=== PATIENT | female | born 1935 | race Caucasian/White ===

== ENCOUNTER 2017-03-09 13:35 | Outpatient (CLI) | payer MEDICARE, BC | END 2017-03-09 23:59 | disposition home or self-care (01) | LOC: LAB.WCP 13:35 | PROVIDERS: ATTEND Family Medicine | DX: N39.0 Urinary tract infection, site not specified (principal) | CPT/HCPCS: 87077; 87086 ==

== ENCOUNTER 2017-08-02 08:44 | Emergency (ER) | payer MEDICARE, BC ==
--- NOTE | 2017-08-02 09:26 | ED Physician Documentation ---
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 She has history of episodic atrial fib, and it seemed that to her. She has also had cough and csome wheezing for 3-4 days, with productive green sputum cough.) Inciting event(s): URI Worsened by: Exertion, Coughing. No: Laying flat Associated symptoms: Cough, Wheezing, Palpitations (just the past 1-2 hours). No: Chest pain / discomfort, Bilateral edema Similar symptoms before: Diagnosis (COPD in the past and episodic atrial fib.) Recently seen: Not recently seen Review of Systems Constitutional: reports: Myalgias. denies: Fever Nose: reports: Congestion Throat: denies: Sore throat Cardiac: denies: Chest pain / pressure, Pedal edema, Calf pain Respiratory: reports: Dyspnea, Cough, Wheezing GI: denies: Abdominal Pain, Nausea, Vomiting, Constipation, Bloody / black stool : denies: Dysuria, Frequency Musculoskeletal: denies: Neck pain, Back pain, Extremity swelling Neurologic: reports: Generalized weakness. 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 HEENT: Cataracts - Present Medications Home Medications: Ambulatory Orders Medication Instructions Recorded Confirmed ALPRAZolam [Xanax] 0.05 mg PO DAILY 05/21/16 05/21/16 Albuterol Sulfate [Proair Hfa] 2 puffs PO PRN 05/21/16 Aspirin Chewable [[place] Keith 81 mg PO DAILY 05/21/16 05/21/16 Aspirin] Cetirizine [ZyrTEC] 10 mg PO PRN 05/21/16 Estrogens, Conjugated [Premarin] 0.5 mg PO DAILY 05/21/16 05/21/16 Ibuprofen [Advil] 100 mg PO DAILY 05/21/16 05/21/16 Lovastatin 20 mg PO DAILY 05/21/16 05/21/16 Magnesium Oxide [Mag Ox] 400 mg PO DAILY 05/21/16 05/21/16 Methylsulfonylmethane [MSM] 1,000 mg PO DAILY 05/21/16 05/21/16 Mometasone/Formoterol [Dulera 200 200 mcg PO DAILY 05/21/16 05/21/16 Mcg/5 Mcg Inhaler] Ondansetron Odt [Zofran] 4 mg TL Q6H PRN #10 tablet 05/21/16 Potassium Chloride [Klor-Con M20] 2 pkg PO DAILY 05/21/16 Roflumilast [Daliresp] 500 mcg PO DAILY 05/21/16 05/21/16 Triamterene/Hydrochlorothiazid 37.5 mg PO DAILY 05/21/16 05/21/16 [Triamterene-Hctz 37.5-25 mg Tb] raNITIdine [Zantac] 150 mg PO DAILY 05/21/16 05/21/16 Albuterol Sulf [Ventolin Hfa 1 - 2 puffs INH Q4HR PRN #1 inhaler 08/02/17 Inhaler] Dexamethasone [Decadron] 4 mg PO DAILY #5 tablet 08/02/17 Doxycycline Monohydrate 100 mg PO BID #14 tablet 08/02/17 - Allergies Allergies/Adverse Reactions: Allergies Allergy/AdvReac Type Severity Reaction Status Date / Time erythromycin base Allergy Intermediate Edema Verified 05/21/16 01:07 [Erythromycin Base] levofloxacin [From Levaquin] Allergy Intermediate Bleeding Verified 05/21/16 01: 07 Macrolide Antibiotics Allergy Intermediate Edema Verified 05/21/16 01:07 phisahex skin soap Allergy Intermediate Edema Uncoded 05/21/16 01:07 - Social History Does the pt smoke?: No Smoking Status: Never smoker PD ED PE NORMAL - Vitals Vital signs reviewed: Yes - General General: Alert and oriented X 3, No acute distress, Well developed/nourished - HEENT HEENT: Ears normal, Pharynx benign - Neck Neck: Supple, no meningeal sign, No adenopathy, No JVD - Cardiac Cardiac: RRR, No murmur - Respiratory Respiratory: No: Clear bilaterally (some tight breath sounds and scattered wheezes mid expiratory and out) - Abdomen Abdomen: Soft, Non tender - Back Back: No CVA TTP - Derm Derm: Normal color, Warm and dry, No rash - Extremities Extremities: No tenderness to palpate, Normal ROM s pain, No edema, No calf tenderness / cord - Neuro Neuro: Alert and oriented X 3, No motor deficit, Normal speech Results - Vitals Vitals: Vital Signs - 24 hr 08/02/17 08/02/17 08/02/17 08:46 09:05 09:59 Temperature 36.9 C Heart Rate 109 H 99 101 H Respiratory 20 21 Rate Blood Pressure 124/62 O2 Saturation 89 L 93 08/02/17 11:36 Temperature Heart Rate 98 Respiratory 21 Rate Blood Pressure 101/76 O2 Saturation 93 Oxygen O2 Source Room air - EKG (time done) 09:07 Rate: Rate (enter#) (90) Rhythm: NSR [place]: Normal Intervals: Normal [place] Ischemia: Normal ST segments. No: ST elevation c/w ischemia, ST depression - Labs Labs: Laboratory Tests 08/02/17 08/02/17 08/02/17 09:58 09:58 09:58 WBC 21.6 H RBC 4.39 Hgb 12.5 Hct 38.1 MCV 86.8 MCH 28.4 MCHC 32.7 RDW 13.3 Plt Count 173 MPV 8.6 Neut # 19.8 H Lymph # 1.0 L [place] # 0.7 Eos # 0.1 Baso # 0.1 Absolute Nucleated RBC 0.00 Nucleated RBC % 0.0 Manual Slide Review Indicated RBC Morph Micro Appear 2+ ANISOCYTOSIS Sodium 134 L Potassium 3.6 Chloride 101 Carbon Dioxide 23 Anion Gap 10.0 BUN 26 H Creatinine 1.1 H Estimated GFR (MDRD) 48 L Glucose 120 H Calcium 9.4 Magnesium 1.8 Total Bilirubin 1.1 H AST 22 ALT 16 Alkaline Phosphatase 62 B-Natriuretic Peptide 85 Total Protein 7.1 Albumin 3.6 Globulin 3.5 Albumin/Globulin Ratio 1.0 Lipase 18 L - Rads (name of study) chest Radiology: Prelim report reviewed, EMP read contemporaneously (no infiltrates, no CHF) PD MEDICAL DECISION MAKING - ED course Complexity details: reviewed results, considered differential (sounds like she had rapid atrial fib and has had cold/cough, so was feeling doubly bad. Improved with return to NSR prior to arrival. Feeling better with neb treatment and will treat for bronchitis, given asthma history and age. ), d/w patient Departure - Departure Disposition: 01 Home, Self Care Clinical Impression: Episodic atrial fibrillation Bronchitis, acute Qualifiers: Bronchitis organism: unspecified organism Qualified Code(s): J20.9 - Acute bronchitis, unspecified Dyspnea Qualifiers: Dyspnea type: dyspnea on exertion Qualified Code(s): R06.09 - Other forms of dyspnea Condition: Stable Record reviewed to determine appropriate education?: Yes Instructions: ED Bronchitis Asthmatic Follow-Up: Leisa Haider MD [Primary Care Provider] - Prescriptions: Albuterol Sulf [Ventolin Hfa Inhaler] 1 - 2 puffs INH Q4HR PRN #1 inhaler PRN Reason: Shortness Of Air/Wheezing Dexamethasone [Decadron] 4 mg PO DAILY #5 tablet Doxycycline Monohydrate 100 mg PO BID #14 tablet Comments: Drink lots of fluids. Continue regular medications. For the bronchitis, use albuterol inhaler 2 puffs 4 times a day for the next 7-10 days. Decadron daily for inflammation of the bronchioles. Doxycycline twice daily for a week for the infection. Recheck if not improving over the next couple of days and return sooner if worse. Discharge Date/Time: 08/02/17 12:27
[2017-08-02] MEDS ORDERED: ALBUTEROL NEB 2.5 MG/3 ML INH STA (09:47)
[2017-08-02] MEDS ORDERED: ALBUTEROL NEB 2.5 MG/3 ML INH ONE (10:02)
[2017-08-02 10:06] LABS: BASOPHILS # (AUTO) 0.1 10^3/uL (0.0-0.1); BASOPHILS % (AUTO) 0.3 %; EOSINOPHILS # (AUTO) 0.1 10^3/uL (0.0-0.7); EOSINOPHILS % (AUTO) 0.3 %; HCT - HEMATOCRIT 38.1 % (37.0-47.0); HGB - HEMOGLOBIN 12.5 g/dL (12.0-16.0); LYMPHOCYTES % (AUTO) 4.4 %; MEAN CORPUSCULAR HEMOGLOBIN 28.4 pg (27.0-31.0); MEAN CORPUSCULAR HGB CONC 32.7 g/dL (32.0-36.0); MEAN CORPUSCULAR VOLUME 86.8 fL (81.0-99.0); MEAN PLATELET VOLUME 8.6 fL (7.9-10.8); MONOCYTES # (AUTO) 0.7 10^3/uL (0.0-1.0); MONOCYTES % (AUTO) 3.2 %; NEUTROPHILS # (AUTO) 19.8 10^3/uL (1.5-6.6); NEUTROPHILS % (AUTO) 91.8 %; RED BLOOD COUNT 4.39 10^6/uL (4.20-5.40); RED CELL DISTRIBUTION WIDTH 13.3 % (12.0-15.0); UNCORRECTED WHITE BLOOD COUNT 21.6 x10^3/uL; WHITE BLOOD COUNT 21.6 x10^3/uL (4.8-10.8)
[2017-08-02 10:17] LABS: BILIRUBIN,TOTAL 1.1 mg/dL (0.2-1.0); CALCIUM 9.4 mg/dL (8.5-10.3); CREATININE 1.1 mg/dL (0.4-1.0); MAGNESIUM 1.8 mg/dL (1.7-2.8); POTASSIUM 3.6 mmol/L (3.5-5.0); TOTAL PROTEIN 7.1 g/dL (6.7-8.2)
--- NOTE | 2017-08-02 11:17 | XRAY Preliminary Report ---
Exam: XR CHEST 2 VIEW PA/LAT IMPRESSION: Negative 2-view chest radiography for acute findings. Chronic changes are present. [facility] SITE ID: [id number]
[2017-08-02] MEDS ORDERED: DOXYCYCLINE 100 MG TABLET PO STA (11:19)
[2017-08-02] MEDS ORDERED: DEXAMETHASONE 10 MG/ML VIAL PO STA (11:19)
--- NOTE | 2017-08-02 11:20 | XRAY Report ---
EXAM: CHEST RADIOGRAPHY EXAM DATE: 08/02/2017 10:53 AM. CLINICAL HISTORY: Dyspnea and cough. COMPARISON: 03/20/2015 TECHNIQUE: 2 views. FINDINGS: Lungs/Pleura: Interstitial prominence as before. No focal opacities evident. No pleural effusion. No pneumothorax. Normal volumes. Mediastinum: Heart and mediastinal contours are unremarkable. Other: Degenerative change with S-shaped thoracolumbar scoliosis IMPRESSION: Negative 2-view chest radiography for acute findings. Chronic changes are present. [facility] Referring Provider Line: [phone] SITE ID: [id number]
[2017-08-02] MEDS ORDERED: DOXYCYCLINE 100 MG TABLET PO ONE (11:28)
[2017-08-02] MEDS ORDERED: DEXAMETHASONE 10 MG/ML VIAL ONE (11:28)
[2017-08-02 11:37] VITALS: BP 101/76
== END 2017-08-02 12:27 | disposition home or self-care (01) ==
LOC: ED 08:44
DX: I48.91 Unspecified atrial fibrillation (principal); J44.9 Chronic obstructive pulmonary disease, unspecified; J20.8 Acute bronchitis due to other specified organisms; R06.09 Other forms of dyspnea; I10 Essential (primary) hypertension; K21.9 Gastro-esophageal reflux disease without esophagitis; Z86.010 Personal history of colon polyps; Z79.82 Long term (current) use of aspirin
CPT/HCPCS: 36415; 71020; 80053; 83690; 83735; 83880; 85025; 93005; 94640; 99283; 99284; A9270; J7613

== ENCOUNTER 2017-09-04 21:29 | Observation (INO) | payer MEDICARE, BC ==
--- NOTE | 2017-09-04 22:01 | ED Physician Documentation ---
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.) Timing - details: Abrupt onset Severity of deficit: Mild Weakness: No: Face, Arm, Hand, Leg, Foot, Right, Left, Other Numbness: Face, Arm, Hand, Left Associated symptoms: No: Headache, Nausea / vomiting, Chest pain Contributing factors: positive: Anticoagulated Baseline status: positive: A&OX3, ambulatory, indep Similar symptoms before: Has not had sx before Recently seen: Not recently seen Review of Systems Constitutional: denies: Fever, Chills Eyes: denies: Loss of vision, Decreased vision, Photophobia Ears: denies: Loss of hearing, Ear pain Nose: denies: Rhinorrhea / runny nose Throat: denies: Sore throat Cardiac: denies: Chest pain / pressure, Palpitations Respiratory: denies: Dyspnea, Cough GI: denies: Abdominal Pain, Nausea, Vomiting, Diarrhea : denies: Dysuria, Frequency Skin: denies: Rash, Lesions Musculoskeletal: denies: Neck pain, Back pain Neurologic: reports: Numbness, Other (no ataxia). denies: Focal weakness, Difficulty speaking, Near syncope, Confused, Altered mental status, Headache, Head injury PD PAST MEDICAL HISTORY - Past Medical History Past Medical History: Yes Cardiovascular: Hypertension, Atrial fibrillation Respiratory: Asthma, COPD, Shortness of breath Neuro: None Endocrine/Autoimmune: None GI: GERD, Colon polyps, Other CITY RECORDER: None : None HEENT: Other Psych: None Musculoskeletal: None Derm: Psoriasis - Past Surgical History Past Surgical History: Yes General: Appendectomy, Colonoscopy /CITY RECORDER: Hysterectomy HEENT: Cataracts - Present Medications Home Medications: Ambulatory Orders Medication Instructions Recorded Confirmed ALPRAZolam [Xanax] 0.25 mg PO DAILY 05/21/16 09/05/17 Albuterol Sulfate [Proair Hfa] 2 puffs PO PRN 05/21/16 Aspirin Chewable [St Keith 81 mg PO DAILY 05/21/16 05/21/16 Aspirin] Cetirizine [ZyrTEC] 10 mg PO PRN 05/21/16 Estrogens, Conjugated [Premarin] 0.5 mg PO DAILY 05/21/16 05/21/16 Lovastatin 20 mg PO DAILY 05/21/16 09/05/17 Magnesium Oxide [Mag Ox] 400 mg PO DAILY 05/21/16 09/05/17 Methylsulfonylmethane [MSM] 1,000 mg PO DAILY 05/21/16 05/21/16 Mometasone/Formoterol [Dulera 200 200 mcg PO DAILY 05/21/16 09/05/17 Mcg/5 Mcg Inhaler] Potassium Chloride [Klor-Con M20] 2 pkg PO DAILY 05/21/16 Roflumilast [Daliresp] 500 mcg PO DAILY 05/21/16 05/21/16 Triamterene/Hydrochlorothiazid 37.5 mg PO DAILY 05/21/16 05/21/16 [Triamterene-Hctz 37.5-25 mg Tb] raNITIdine [Zantac] 150 mg PO DAILY 05/21/16 09/05/17 Albuterol Sulf [Ventolin Hfa 1 - 2 puffs INH Q4HR PRN #1 inhaler 08/02/17 Inhaler] Metoprolol Tartrate [Lopressor] 25 mg PO BID 09/05/17 09/05/17 Nifedipine [Nifedipine ER] 15 mg PO DAILY 09/05/17 09/05/17 Warfarin [Coumadin] 5 mg PO DAILY 09/05/17 09/05/17 - Allergies Allergies/Adverse Reactions: Allergies Allergy/AdvReac Type Severity Reaction Status Date / Time erythromycin base Allergy Intermediate Edema Verified 09/04/17 21:40 [Erythromycin Base] levofloxacin [From Levaquin] Allergy Intermediate Bleeding Verified 09/04/17 21: 40 Macrolide Antibiotics Allergy Intermediate Edema Verified 09/04/17 21:40 phisahex skin soap Allergy Intermediate Edema Uncoded 09/04/17 21:40 - Social History Does the pt smoke?: No Smoking Status: Never smoker Does the pt drink ETOH?: No Does the pt have substance abuse?: No - Immunizations Immunizations are current?: Yes PD ED PE NORMAL - Vitals Vital signs reviewed: Yes - General General: Alert and oriented X 3, No acute distress, Well developed/nourished - HEENT HEENT: Atraumatic, PERRL, EOMI, Ears normal, Pharynx benign - Neck Neck: Supple, no meningeal sign, No adenopathy, No JVD, No bruit - Cardiac Cardiac: RRR, No murmur - Respiratory Respiratory: Clear bilaterally - Abdomen Abdomen: Soft, Non tender - Female Female : Deferred - Rectal Rectal: Deferred - Back Back: No CVA TTP, No spinal TTP - Derm Derm: Normal color, Warm and dry, No rash - Extremities Extremities: No deformity, No tenderness to palpate, Normal ROM s pain, No calf tenderness / cord, Other (bilateral edema mild in both legs without tenderness. 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 But she can distinguish sharp/dull and position. Muscle strength is symmetric. ) Eye Opening: Spontaneous Motor: Obeys Commands Verbal: Oriented GCS Score: 15 - Psych Psych: Normal mood, Normal affect NIHSS - Level of Consciousness Level of consciousness: (0) Alert, Keenly responsive LOC Questions: (0) Answers both Q's correct LOC Commands: (0) Performs both correctly - Gaze Best Gaze: (0) Normal - Visual Visual: (0) No loss - Facial Palsy Facial Palsy: (0) Normal, symmetrical movement - Motor Arms (both separate) Motor Arm (right): (0) No drift Motor Arm (left): (0) No drift - Motor Legs (both separate) Motor Leg (right): (0) No drift Motor Leg (left): (0) No drift - Limb Ataxia Limb Ataxia: (0) Absent - Sensory Sensory: (1) [id number] loss - Best Language Best Language: (0) No aphasia - Dysarthria Dysarthria: (0) Normal - Extinction and Inattention (formally neg Extinction and inattention: (0) No abnormality - Total Score/Results Total Score/Result: 1 Results - Vitals Vitals: Vital Signs - 24 hr 09/04/17 09/04/17 21:30 22:31 Temperature 36.2 C L Heart Rate 107 H 103 H Respiratory 20 18 Rate Blood Pressure 189/94 H 192/86 H O2 Saturation 95 100 Oxygen O2 Source Room air - Labs Labs: Laboratory Tests 09/04/17 09/04/17 09/04/17 21:45 21:45 21:45 WBC 6.5 RBC 4.58 Hgb 13.3 Hct 39.8 MCV 86.8 MCH 29.1 MCHC 33.6 RDW 13.0 Plt Count 253 MPV 8.7 Neut # 3.5 Lymph # 2.1 [place] # 0.7 Eos # 0.2 Baso # 0.0 Absolute Nucleated RBC 0.00 Nucleated RBC % 0.0 PT INR APTT Sodium 138 Potassium 3.6 Chloride 102 Carbon Dioxide 25 Anion Gap 11.0 BUN 25 H Creatinine 0.9 Estimated GFR (MDRD) 60 L Glucose 124 H Calcium 9.7 Magnesium 1.8 Total Bilirubin 0.4 AST 27 ALT 21 Alkaline Phosphatase 67 Troponin I < 0.04 Total Protein 8.0 Albumin 4.2 Globulin 3.8 Albumin/Globulin Ratio 1.1 Lipase 40 09/04/17 09/04/17 23:00 23:00 WBC RBC Hgb Hct MCV MCH MCHC RDW Plt Count MPV Neut # Lymph # [place] # Eos # Baso # Absolute Nucleated RBC Nucleated RBC % PT 50.0 H INR 4.7 H* APTT 47.3 H Sodium Potassium Chloride Carbon Dioxide Anion Gap BUN Creatinine Estimated GFR (MDRD) Glucose Calcium Magnesium Total Bilirubin AST ALT Alkaline Phosphatase Troponin I Total Protein Albumin Globulin Albumin/Globulin Ratio Lipase - Rads (name of study) head CT Radiology: Prelim report reviewed (no acute findings.), EMP read contemporaneously PD MEDICAL DECISION MAKING - ED course Complexity details: reviewed results, considered differential (concerning for CVA with left numbness. However without weakness, would consider small lacunar type such as in caudate nucleus or such. Her symptoms are minor and timing was about 2 1/2 hours prior to arrival and over [address] of [address] result. I talked with her and spouse about TPA and the benefit/harm potentials and patient agrees with me that it would be too risky for the degree of benefit. ) , d/w patient, d/w desktop support consultant (Dr. Camacho, hospitalist) Departure - Departure Disposition: ED Place in Observation Clinical Impression: Left sided numbness Cerebrovascular accident (CVA) Qualifiers: CVA mechanism: unspecified Qualified Code(s): I63.9 - Cerebral infarction, unspecified Condition: Stable Record reviewed to determine appropriate education?: Yes Discharge Date/Time: 09/05/17 00:13
[2017-09-04] MEDS ORDERED: ASPIRIN CHEW 81 MG TABLET PO STA (22:40)
[2017-09-04 22:46] LABS: BASOPHILS % (AUTO) 0.6 %; EOSINOPHILS # (AUTO) 0.2 10^3/uL (0.0-0.7); EOSINOPHILS % (AUTO) 2.7 %; HCT - HEMATOCRIT 39.8 % (37.0-47.0); HGB - HEMOGLOBIN 13.3 g/dL (12.0-16.0); LYMPHOCYTES # (AUTO) 2.1 10^3/uL (1.5-3.5); LYMPHOCYTES % (AUTO) 32.4 %; MEAN CORPUSCULAR HEMOGLOBIN 29.1 pg (27.0-31.0); MEAN CORPUSCULAR HGB CONC 33.6 g/dL (32.0-36.0); MEAN CORPUSCULAR VOLUME 86.8 fL (81.0-99.0); MEAN PLATELET VOLUME 8.7 fL (7.9-10.8); MONOCYTES # (AUTO) 0.7 10^3/uL (0.0-1.0); MONOCYTES % (AUTO) 10.1 %; NEUTROPHILS # (AUTO) 3.5 10^3/uL (1.5-6.6); NEUTROPHILS % (AUTO) 54.2 %; RED BLOOD COUNT 4.58 10^6/uL (4.20-5.40); UNCORRECTED WHITE BLOOD COUNT 6.5 x10^3/uL; WHITE BLOOD COUNT 6.5 x10^3/uL (4.8-10.8)
[2017-09-04] MEDS ORDERED: ASPIRIN CHEW 81 MG TABLET ONE (22:49)
--- NOTE | 2017-09-04 22:56 | CT Preliminary Report ---
Exam: CT HEAD W/O IMPRESSION: Generalized age-related cortical atrophic changes without evidence of acute intracranial abnormality. [facility] SITE ID: [id number]
[2017-09-04 22:59] LABS: ALBUMIN/GLOBULIN RATIO 1.1 (1.0-2.2); BILIRUBIN,TOTAL 0.4 mg/dL (0.2-1.0); CALCIUM 9.7 mg/dL (8.5-10.3); CREATININE 0.9 mg/dL (0.4-1.0); MAGNESIUM 1.8 mg/dL (1.7-2.8); POTASSIUM 3.6 mmol/L (3.5-5.0)
--- NOTE | 2017-09-04 22:59 | CT Report ---
EXAM: CT HEAD EXAM DATE: 09/04/2017 10:46 PM. CLINICAL HISTORY: Left arm and face numbness this evening. COMPARISON: Brain MRI 01/16/2007. TECHNIQUE: Multiaxial CT images were obtained from the foramen magnum to the vertex. IV contrast: Non e. Reformats: Coronal. In accordance with CT protocol optimization, one or more of the following dose reduction techniques w ere utilized for this exam: automated exposure control, adjustment of mA and/or KV based on patient s ize, or use of iterative reconstructive technique. FINDINGS: Parenchyma: No intraparenchymal hemorrhage. No evidence of mass, midline shift, or CT findings of acu te infarction. Dawson-white differentiation is distinct. Diffuse chronic microangiopathic white matter changes are evident. Extraaxial Spaces: Normal for age. No subdural or epidural collections identified. Ventricles: The ventricles and cortical sulci are enlarged, consistent with age-related tissue loss. Sinuses and orbits: Imaged paranasal sinuses, orbits, and mastoids show no significant abnormality. Bones: No evidence of fracture or calvarial defect. Other: None. IMPRESSION: Generalized age-related cortical atrophic changes without evidence of acute intracranial abnormality. [facility] Referring Provider Line: [phone] SITE ID: [id number]
[2017-09-04] MEDS ORDERED: ONDANSETRON 4 MG/2 ML VIAL IVP PRN (23:18)
[2017-09-04] MEDS ORDERED: ACETAMINOPHEN 325 MG TABLET PO PRN (23:18)
[2017-09-04] MEDS ORDERED: ZOLPIDEM 5 MG TABLET PO PRN (23:18)
[2017-09-04] MEDS ORDERED: PROCHLORPERAZINE 10 MG/2 ML VIAL IVP PRN (23:18)
[2017-09-04] MEDS ORDERED: SODIUM CHLORIDE FLUSH 0.9% 10 ML SYRINGE IVP PRN (23:18)
[2017-09-04] MEDS ORDERED: IBUPROFEN 400 MG TABLET PO PRN (23:18)
[2017-09-04] MEDS ORDERED: oxyCODONE 5 MG TABLET PO PRN (23:18)
[2017-09-04 23:27] LABS: INR 4.7 (0.8-1.2)
[2017-09-04] MEDS ORDERED: IOPAMIDOL-300 100 ML VIAL ONE (23:50)
--- NOTE | 2017-09-05 00:15 | HISTORY & PHYSICAL EXAMINATION ---
Chief Complaint - Chief Complaint Chief Complaint: Left face and arm numbness History of Present Illness - Admitted From Admitted From:: Emergency Department - History Obtained From Records Reviewed: Yes History obtained from: Patient Exam Limitations: None - History of Present Illness HPI Comment/Other: Patient is an 82-year-old female with a past medical history significant for atrial fibrillation on Coumadin, hypertension, COPD and history of aortic aneurysm who presented to the emergency department with a chief complaint of left arm and facial numbness. The patient states that at around 7 PM today she began to notice that she had tingling in her left arm. The patient states that she was on her iPad reading at that time. She states that she was sitting in a way that she was putting pressure on her left arm. She states that she tried to change position hoping that this was just a pinched nerve and that the symptoms would improve. She states that with changing position it did not improve her symptoms. She states that her symptoms did seem to improve and then worsen and would come and go through the next few hours. She states that when she got up and went to the kitchen she began to notice that she was also having some tingling sensation in the left side of her face. She states that this also was coming and going. She did also noticed that when she got up to walk that she stumbled but then had no further difficulties with her gait. The patient states that when she checked her blood pressure it was very high and her heart rate was elevated and at that point she decided she needed to come into the emergency department. The patient otherwise denies any facial droop, focal weakness, neck stiffness, fevers or chills. Patient denies any headaches, blurred vision, runny nose, sore throat, nasal congestion, cough, shortness of air, orthopnea, PND, chest pain, abdominal pain , nausea, vomiting, diarrhea, constipation, urinary urgency, urinary frequency, dysuria, joint swelling, joint pain, muscle aches, back pain, recent unintentional weight loss or any changes in her appetite. On presentation to the emergency department the patient was afebrile however she was tachycardic and her blood pressure was elevated at 189/94. The patient was not in any respiratory distress. The patient's initial lab work revealed normal electrolytes and negative troponin. The patient had no elevation in her WBC and was not anemic. The patient's INR was elevated at 4.7. The patient's EKG did not show any acute ischemic changes. The patient underwent a CT of her head which showed generalized age-related cortical atrophic changes without evidence of acute intracranial abnormality. On examination the patient did have decreased sensation in her left leg and given her left-sided numbness and changes in sensation it was felt that the patient could possibly be having a small stroke therefore she was placed in observation for further testing and monitoring. 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 Social History Notes: Patient is originally from [place] and moved to [facility] at the age of 8. She has been living in [place] for 55 years. She was to her first for 14 years until he . She has been to her second for 52 years. She lives with her who has dementia and she helps to take care of him. The patient has 5 biological children and 2 stepchildren. 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 She is a former smoker quit smoking in 1988 prior to that she smoked at least a pack a day for over 30 years. Patient occasionally drinks wine and denies any illicit drug - POLST Patient has POLST: No POLST Status: DNR Meds/Allgy - Home Medications Home Medications: Ambulatory Orders Medication Instructions Recorded Confirmed ALPRAZolam [Xanax] 0.25 mg PO DAILY 05/21/16 09/05/17 Albuterol Sulfate [Proair Hfa] 2 puffs PO PRN 05/21/16 Aspirin Chewable [[place] 81 mg PO DAILY 05/21/16 05/21/16 Aspirin] Cetirizine [ZyrTEC] 10 mg PO PRN 05/21/16 Estrogens, Conjugated [Premarin] 0.5 mg PO DAILY 05/21/16 05/21/16 Lovastatin 20 mg PO DAILY 05/21/16 09/05/17 Magnesium Oxide [Mag Ox] 400 mg PO DAILY 05/21/16 09/05/17 Methylsulfonylmethane [MSM] 1,000 mg PO DAILY 05/21/16 05/21/16 Mometasone/Formoterol [Dulera 200 200 mcg PO DAILY 05/21/16 09/05/17 Mcg/5 Mcg Inhaler] Potassium Chloride [Klor-Con M20] 2 pkg PO DAILY 05/21/16 Roflumilast [Daliresp] 500 mcg PO DAILY 05/21/16 05/21/16 Triamterene/Hydrochlorothiazid 37.5 mg PO DAILY 05/21/16 05/21/16 [Triamterene-Hctz 37.5-25 mg Tb] raNITIdine [Zantac] 150 mg PO DAILY 05/21/16 09/05/17 Albuterol Sulf [Ventolin Hfa 1 - 2 puffs INH Q4HR PRN #1 inhaler 08/02/17 Inhaler] Metoprolol Tartrate [Lopressor] 25 mg PO BID 09/05/17 09/05/17 Nifedipine [Nifedipine ER] 15 mg PO DAILY 09/05/17 09/05/17 Warfarin [Coumadin] 5 mg PO DAILY 09/05/17 09/05/17 - Allergies Allergies/Adverse Reactions: Allergies Allergy/AdvReac Type Severity Reaction Status Date / Time erythromycin base Allergy Intermediate Edema Verified 09/04/17 21:40 [Erythromycin Base] levofloxacin [From Levaquin] Allergy Intermediate Bleeding Verified 09/04/17 21: 40 Macrolide Antibiotics Allergy Intermediate Edema Verified 09/04/17 21:40 phisahex skin soap Allergy Intermediate Edema Uncoded 09/04/17 21:40 Review of Systems - Other Findings Other Findings: A comprehensive review of systems was performed the pertinent positives and negatives are stated above in the HPI and the remainder of the review of systems is negative. Exam - Vital Signs Reviewed Vital Signs: Yes Vital Signs: Vital Signs x48h Pulse Resp BP Pulse Ox 09/04/17 23:31 84 18 192/86 H 96 - Physical Exam General Appearance: positive: No acute distress, Alert Eyes Bilateral: positive: Normal inspection, PERRL, EOMI, No lid inflammation, Conjunctivae nml, No scleral icterus ENT: positive: ENT inspection nml, Pharynx nml, No signs of dehydration. negative: Purulent nasal drainage, Pharyngeal erythema, Oral lesions Neck: positive: Nml inspection, Thyroid nml, No JVD, Trachea midline. negative : Thyromegaly, Lymphadenopathy (R), Lymphadenopathy (L), Stiff neck, Carotid bruit, Tracheal deviation Respiratory: positive: Chest non-tender, No respiratory distress, Breath sounds nml. negative: Wheezes, Rales, Rhonchi Cardiovascular: positive: Regular rate & rhythm, No murmur, No gallop Peripheral Pulses: positive: 2+ Abdomen: positive: Non-tender, No organomegaly, Nml bowel sounds, No distention. negative: Guarding, Rebound, Hepatomegaly Back: positive: Nml inspection. negative: CVA tenderness (R), CVA tenderness (L ) Skin: positive: Color nml, No rash. negative: Cyanosis, Pallor Extremities: positive: Non-tender, Full ROM, Nml appearance, No pedal edema. negative: Joint swelling Neurologic/Psychiatric: positive: Oriented x3, CN's nml (2-12), Motor nml, Sensory loss (Left leg decreased sensation, left facial and arm numbness), Other (Normal speech, no ataxia, no nystagmus). negative: Facial droop Conclusion/Plan - Problem List (1) Left sided numbness Conclusion/Plan: The patient presented with left arm and facial numbness. Symptoms were off and on for the patient. On examination the patient was found to have decreased sensations in the left leg. Patient's CT scan of the head was negative for any acute intracranial abnormality. The patient did not have complete resolution of her symptoms in the emergency department. The patient is on aspirin, statin and Coumadin at home. Patient was placed in observation for further testing. Plan: Aspirin Lipitor CTA head and neck MRI brain Echo Lipid profile Tele Neurochecks HbA1C Allow for permissive hypertension (2) Atrial fibrillation Conclusion/Plan: Patient is in sinus rhythm on presentation to the emergency department. The patient admits that she has paroxysmal atrial fibrillation. Patient is on Coumadin and metoprolol for rate control. Patient's INR was elevated. Plan: We will hold patient's Coumadin given her elevated INR We will hold patient's metoprolol for permissive hypertension Monitor on telemetry Qualifiers: Atrial fibrillation type: paroxysmal Qualified Code(s): I48.0 - Paroxysmal atrial fibrillation (3) Hypertension Conclusion/Plan: The patient has history of hypertension and is on nifedipine, triamterene and metoprolol at home. The patient does have an elevated blood pressure on presentation to the emergency department however given that the patient could have an acute stroke we will allow for permissive hypertension. We will hold all the patient's blood pressure medications for now Qualifiers: Hypertension type: essential hypertension Qualified Code(s): I10 - Essential (primary) hypertension (4) Hyperlipidemia Conclusion/Plan: Patient has history of hyperlipidemia and is on a statin at home. While patient is hospitalized she will be continued on her statin and she will undergo a lipid profile while she is hospitalized (5) COPD (chronic obstructive pulmonary disease) Conclusion/Plan: Patient has history of COPD and is on Daliresp and Dulera at home. Patient does not appear to be short of air or hypoxic at this time. Plan: Patient will be placed on budesonide and formoterol while she is hospitalized She will be continued on her home dose of Daliresp We will place her on nebs as needed - Lab Results Lab results reviewed: Yes Fish Bones: 09/04/17 21:45 09/04/17 21:45 Other Lab Results: Laboratory Results WBC 6.5 x10^3/uL (4.8-10.8) 09/04/17 21:45 RBC 4.58 10^6/uL (4.20-5.40) 09/04/17 21:45 Hgb 13.3 g/dL (12.0-16.0) 09/04/17 21:45 Hct 39.8 % (37.0-47.0) 09/04/17 21:45 MCV 86.8 fL (81.0-99.0) 09/04/17 21:45 MCH 29.1 pg (27.0-31.0) 09/04/17 21:45 MCHC 33.6 g/dL (32.0-36.0) 09/04/17 21:45 RDW 13.0 % (12.0-15.0) 09/04/17 21:45 Plt Count 253 10^3/uL (130-450) 09/04/17 21:45 MPV 8.7 fL (7.9-10.8) 09/04/17 21:45 Neut # 3.5 10^3/uL (1.5-6.6) 09/04/17 21:45 Lymph # 2.1 10^3/uL (1.5-3.5) 09/04/17 21:45 [place] # 0.7 10^3/uL (0.0-1.0) 09/04/17 21:45 Eos # 0.2 10^3/uL (0.0-0.7) 09/04/17 21:45 Baso # 0.0 10^3/uL (0.0-0.1) 09/04/17 21:45 Absolute Nucleated RBC 0.00 x10^3/uL 09/04/17 21:45 Nucleated RBC % 0.0 /100WBC 09/04/17 21:45 PT 50.0 secs (9.9-12.6) H 09/04/17 23:00 INR 4.7 (0.8-1.2) H* 09/04/17 23:00 APTT 47.3 secs (24.9-33.3) H 09/04/17 23:00 Sodium 138 mmol/L (135-145) 09/04/17 21:45 Potassium 3.6 mmol/L (3.5-5.0) 09/04/17 21:45 Chloride 102 mmol/L (101-111) 09/04/17 21:45 Carbon Dioxide 25 mmol/L (21-32) 09/04/17 21:45 Anion Gap 11.0 (6-13) 09/04/17 21:45 BUN 25 mg/dL (6-20) H 09/04/17 21:45 Creatinine 0.9 mg/dL (0.4-1.0) 09/04/17 21:45 Estimated GFR (MDRD) 60 (>89) L 09/04/17 21:45 Glucose 124 mg/dL (70-100) H 09/04/17 21:45 Calcium 9.7 mg/dL (8.5-10.3) 09/04/17 21:45 Magnesium 1.8 mg/dL (1.7-2.8) 09/04/17 21:45 Total Bilirubin 0.4 mg/dL (0.2-1.0) 09/04/17 21:45 AST 27 IU/L (10-42) 09/04/17 21:45 ALT 21 IU/L (10-60) 09/04/17 21:45 Alkaline Phosphatase 67 IU/L (42-121) 09/04/17 21:45 Total Protein 8.0 g/dL (6.7-8.2) 09/04/17 21:45 Albumin 4.2 g/dL (3.2-5.5) 09/04/17 21:45 Globulin 3.8 g/dL (2.1-4.2) 09/04/17 21:45 Albumin/Globulin Ratio 1.1 (1.0-2.2) 09/04/17 21:45 Lipase 40 U/L (22-51) 09/04/17 21:45 - Diagnostic Imaging Results Diagnostic Imaging Results: positive: Final report reviewed Diagnostic Imaging Results Comments: CT head Impression: Generalized age-related cortical atrophic changes without evidence of acute intracranial abnormality. - EKG Results EKG Interpreted Independently: Yes EKG Findings: Right bundle branch block with nonspecific T-wave changes and sinus rhythm. Issues/Core Measures - Anticipated LOS Anticipated Stay Length: Less than 2 midnights - DVT/VTE - Prophylaxis VTE/DVT Device ordered at admit?: Yes
[2017-09-05] MEDS ORDERED: IOPAMIDOL-300 100 ML VIAL IVP ONE (00:17)
[2017-09-05] MEDS ORDERED: ALBUTEROL NEB 2.5 MG/3 ML INH PRN (01:34)
--- NOTE | 2017-09-05 05:33 | CT Preliminary Report ---
Exam: CT HEAD ANGIO IMPRESSION: CT Head: No acute abnormality. Severe microvascular disease. No abnormal enhancement. [facility] SITE ID: [id number]
--- NOTE | 2017-09-05 05:36 | CT Report ---
EXAM: CT SCAN OF THE HEAD WITHOUT AND WITH CONTRAST. EXAM DATE: 09/05/2017 12:22 AM CLINICAL HISTORY: Left sided facial, arm and leg numbness. COMPARISON: Head CT 09/04/2017. TECHNIQUE: CT Scan Head: Using a multidetector scanner, axial images were acquired from the foramen magnum to th e skull vertex prior to and following contrast administration. IV Contrast: 100 cc [id number]. In accordance with CT protocol optimization, one or more of the following dose reduction techniques w ere utilized for this exam: automated exposure control, adjustment of mA and/or KV based on patient s ize, or use of iterative reconstructive technique. FINDINGS: NON-CONTRAST HEAD: Parenchyma: No intraparenchymal hemorrhage. There are confluent areas of low-density involving white matter bilateral cerebral hemispheres. No evidence of mass, midline shift, or CT findings of infarcti on. Dawson-white differentiation is distinct. Extraaxial Spaces: There is diffuse enlargement of sulci. Ventricles: There is mild ventriculomegaly. No mass effect. No midline shift. Sinuses and orbits: There is mild right and exercise mucosal thickening. Mastoid air cells are well a erated. Bones: No evidence of fracture or calvarial defect. Other: None. POST-CONTRAST HEAD: No abnormal enhancement. DURAL VENOUS SINUSES AND MAJOR CENTRAL VEINS: Patent. IMPRESSION: CT Head: No acute abnormality. Severe microvascular disease. No abnormal enhancement. [facility] Referring Provider Line: [phone] SITE ID: [id number]
--- NOTE | 2017-09-05 05:48 | CT Preliminary Report ---
Exam: CT NECK ANGIO IMPRESSION: 1. Greater than 80% proximal left ICA stenosis. 2. 50% distal right common carotid artery stenosis. 3. Severe stenosis of distal left vertebral artery. Mild distal narrowing of the dominant right verte bral artery. 4. No significant intracranial stenosis or aneurysm. [facility] SITE ID: [id number]
--- NOTE | 2017-09-05 05:51 | CT Report ---
EXAM: CT ANGIOGRAM NECK AND CT ANGIOGRAM HEAD EXAM DATE: 09/05/2017 12:22 AM. CLINICAL HISTORY: Left sided facial, arm and leg numbness. COMPARISON: None. TECHNIQUE: Routine axial helical imaging was performed through the cervical of Romeo and neck. IV Co ntrast: 80 ML Omnipaque 350. Reconstructions: Routine multiplanar 3D MIP reconstructions. Evaluation of arterial stenosis is based on a NASCET method of measurement. In accordance with CT protocol optimization, one or more of the following dose reduction techniques w ere utilized for this exam: automated exposure control, adjustment of mA and/or KV based on patient s ize, or use of iterative reconstructive technique. FINDINGS: Right Carotid: There is calcified plaque with 50% narrowing of the distal right common carotid artery . There is 30% narrowing of the proximal right ICA. There is mild narrowing of proximal right ECA. Left Carotid: There is desiccation with 40% narrowing of the mid left common carotid artery. There is dense calcification of the carotid bifurcation with approximately 50% stenosis. There is dense calci fications with greater than 80% narrowing of the proximal left ICA. There is severe narrowing of the proximal left ECA. Vertebrals: The right vertebral demonstrates tortuosity although no significant stenosis. There is mi ld narrowing of the V4 segment of the right vertebral artery. Left vertebral artery is relatively small. Left vertebral origin not well seen (likely arch origin). Left vertebral is not visualized down stream to PICA. Intracranial Circulation: There is calcification of bilateral cavernous ICA segments without signific ant stenosis. There is mild narrowing and irregularity of bilateral M1 MCA segments. No evidence of a neurysm. Other: There is emphysema. There are moderate degenerative changes of the cervical spine. No bony samina tructive abnormality. Soft tissues of neck are unremarkable. IMPRESSION: 1. Greater than 80% proximal left ICA stenosis. 2. 50% distal right common carotid artery stenosis. 3. Severe stenosis of distal left vertebral artery. Mild distal narrowing of the dominant right verte bral artery. 4. No significant intracranial stenosis or aneurysm. [facility] Referring Provider Line: [phone] SITE ID: [id number]
[2017-09-05 06:00] LABS: BASOPHILS # (AUTO) 0.1 10^3/uL (0.0-0.1); BASOPHILS % (AUTO) 1.2 %; EOSINOPHILS # (AUTO) 0.2 10^3/uL (0.0-0.7); HCT - HEMATOCRIT 37.4 % (37.0-47.0); HGB - HEMOGLOBIN 12.3 g/dL (12.0-16.0); LYMPHOCYTES # (AUTO) 1.6 10^3/uL (1.5-3.5); LYMPHOCYTES % (AUTO) 28.6 %; MEAN CORPUSCULAR HEMOGLOBIN 28.7 pg (27.0-31.0); MEAN CORPUSCULAR HGB CONC 32.8 g/dL (32.0-36.0); MEAN CORPUSCULAR VOLUME 87.5 fL (81.0-99.0); MEAN PLATELET VOLUME 8.3 fL (7.9-10.8); MONOCYTES # (AUTO) 0.6 10^3/uL (0.0-1.0); MONOCYTES % (AUTO) 10.2 %; NEUTROPHILS # (AUTO) 3.1 10^3/uL (1.5-6.6); RED BLOOD COUNT 4.27 10^6/uL (4.20-5.40); RED CELL DISTRIBUTION WIDTH 13.2 % (12.0-15.0); UNCORRECTED WHITE BLOOD COUNT 5.4 x10^3/uL; WHITE BLOOD COUNT 5.4 x10^3/uL (4.8-10.8)
[2017-09-05] MEDS ORDERED: SODIUM CHLORIDE FLUSH 0.9% 10 ML SYRINGE IVP SCH (06:00)
[2017-09-05 06:10] LABS: ALBUMIN/GLOBULIN RATIO 1.2 (1.0-2.2); BILIRUBIN,TOTAL 0.4 mg/dL (0.2-1.0); CALCIUM 9.1 mg/dL (8.5-10.3); CREATININE 0.7 mg/dL (0.4-1.0); POTASSIUM 3.1 mmol/L (3.5-5.0); TOTAL PROTEIN 6.9 g/dL (6.7-8.2)
[2017-09-05 06:28] LABS: CHOL/HDL RATIO 2.8 (<4.4); CHOLESTEROL 175 mg/dL; HDL CHOLESTEROL 63 mg/dL; LDL/HDL RATIO 1.6 (<4.4); TRIGLYCERIDES 58 mg/dL; VLDL CHOLESTEROL 12 mg/dL
[2017-09-05] MEDS ORDERED: POTASSIUM CHLORIDE 20 MEQ TABLET PO SCH (06:46)
[2017-09-05] MEDS ORDERED: BUDESONIDE 0.5 MG/2 ML NEB INH SCH (07:00)
[2017-09-05 07:30] LABS: HEMOGLOBIN A1C 0.58 g/dL
[2017-09-05] MEDS ORDERED: FORMOTEROL FUMARATE NEB 20 MCG/2 ML INH SCH (08:00)
[2017-09-05] MEDS ORDERED: TRIAMT/HCTZ 37.5 MG/25 MG CAPSULE PO SCH (09:00)
[2017-09-05] MEDS ORDERED: METHYLSULFONYLMETHANE 1000 MG PO SCH (09:00)
[2017-09-05] MEDS ORDERED: MAGNESIUM OXIDE 400 MG TABLET PO SCH (09:00)
[2017-09-05] MEDS ORDERED: ATORVASTATIN 10 MG TABLET PO SCH (09:00)
[2017-09-05] MEDS ORDERED: ASPIRIN CHEW 81 MG TABLET PO SCH (09:00)
[2017-09-05] MEDS ORDERED: POLYETHYLENE GLYCOL 3350 17 GM PACKET PO SCH (09:00)
[2017-09-05] MEDS ORDERED: FAMOTIDINE 20 MG TABLET PO SCH (09:00)
[2017-09-05] MEDS ORDERED: ALPRAZolam 0.25 MG TABLET PO SCH (09:00)
[2017-09-05] MEDS ORDERED: ROFLUMILAST 500 MCG PO SCH (09:00)
--- NOTE | 2017-09-05 11:50 | DISCHARGE SUMMARY ---
Discharge Summary Admit Date: 09/04/17 Discharge Date: 09/05/17 Discharging Provider: ARACELY Arnett Condition at Discharge: Stable Discharge Disposition: 01 Home, Self Care - DIAGNOSES Admission Diagnoses: Anesthesia of skin (R20.0) Unspecified atrial fibrillation (I48.91) Essential (primary) hypertension (I10) Hyperlipidemia, unspecified (E78.5) Chronic obstructive pulmonary disease, unspecified (J44.9) Discharge Diagnoses with Status of Each Condition: (1) Left sided numbness The patient presented with left arm and facial numbness. Symptoms were off and on for the patient. On examination the patient was found to have decreased sensations in the left leg. Patient's CT scan of the head was negative for any acute intracranial abnormality. The patient did not have complete resolution of her symptoms in the emergency department. The patient is on aspirin, statin and Coumadin at home. Patient was placed in observation for further testing, which revealed carotid stenosis which likely led to her left sided numbness. Plan: Aspirin, Lipitor were given for the hospital stay and resumed for home use. A CTA head and neck revealed a greater than 80% stenosis. MRI brain showed no acute infarcts. Echocardiogram was completed and stable. Lipid profile was noncontributory. Telemetry showed not ectopy or episodes of sustained bradycardia. Patient should plan to see her PCP and consider more work up for a surgical intervention, although patient's over the age of [age] years old, the benefits may equal the risk associated with this type of repair. (2) Atrial fibrillation Patient is in sinus rhythm on presentation to the emergency department. The patient admits that she has paroxysmal atrial fibrillation. Patient is on Coumadin and metoprolol for rate control. Patient's INR was elevated. Plan: Hold Coumadin given her elevated INR, hold patient's metoprolol for permissive hypertension, Monitor on telemetry. (3) Hypertension The patient has history of hypertension and is on nifedipine, triamterene and metoprolol at home. The patient does have an elevated blood pressure on presentation to the emergency department however given that the patient could have an acute stroke we will allow for permissive hypertension. We will hold all the patient's blood pressure medications for now. Plan: Resumed home medications upon discharge. (4) Hyperlipidemia Patient has history of hyperlipidemia and is on a statin at home. While patient is hospitalized she will be continued on her statin and she will undergo a lipid profile while she is hospitalized. Plan: Resume home medications upon discharge. (5) COPD (chronic obstructive pulmonary disease) Patient has history of COPD and is on Daliresp and Dulera at home. Patient did not appear to be short of air or hypoxic. Plan: Patient will be placed on budesonide and formoterol while she is hospitalized. She will be continued on her home dose of Daliresp. We will place her on nebs as needed. - HPI History of Present Illness: HPI per Dr. Camacho: Patient is an 82-year-old female with a past medical history significant for atrial fibrillation on Coumadin, hypertension, COPD and history of aortic aneurysm who presented to the emergency department with a chief complaint of left arm and facial numbness. The patient states that at around 7 PM today she began to notice that she had tingling in her left arm. The patient states that she was on her iPad reading at that time. She states that she was sitting in a way that she was putting pressure on her left arm. She states that she tried to change position hoping that this was just a pinched nerve and that the symptoms would improve. She states that with changing position it did not improve her symptoms. She states that her symptoms did seem to improve and then worsen and would come and go through the next few hours. She states that when she got up and went to the kitchen she began to notice that she was also having some tingling sensation in the left side of her face. She states that this also was coming and going. She did also noticed that when she got up to walk that she stumbled but then had no further difficulties with her gait. The patient states that when she checked her blood pressure it was very high and her heart rate was elevated and at that point she decided she needed to come into the emergency department. The patient otherwise denies any facial droop, focal weakness, neck stiffness, fevers or chills. Patient denies any headaches, blurred vision, runny nose, sore throat, nasal congestion, cough, shortness of air, orthopnea, PND, chest pain, abdominal pain , nausea, vomiting, diarrhea, constipation, urinary urgency, urinary frequency, dysuria, joint swelling, joint pain, muscle aches, back pain, recent unintentional weight loss or any changes in her appetite. On presentation to the emergency department the patient was afebrile however she was tachycardic and her blood pressure was elevated at 189/94. The patient was not in any respiratory distress. The patient's initial lab work revealed normal electrolytes and negative troponin. The patient had no elevation in her WBC and was not anemic. The patient's INR was elevated at 4.7. The patient's EKG did not show any acute ischemic changes. The patient underwent a CT of her head which showed generalized age-related cortical atrophic changes without evidence of acute intracranial abnormality. On examination the patient did have decreased sensation in her left leg and given her left-sided numbness and changes in sensation it was felt that the patient could possibly be having a small stroke therefore she was placed in observation for further testing and monitoring. - HOSPITAL COURSE Hospital Course: Patient was kept overnight. Aspirin, Lipitor were given for the hospital stay and resumed for home use. A CTA head and neck revealed a greater than 80% stenosis. MRI brain showed no acute infarcts. Echocardiogram was completed and stable. Lipid profile was noncontributory. Telemetry showed not ectopy or episodes of sustained bradycardia. Patient should plan to see her PCP and consider more work up for a surgical intervention, although patient's over the age of [age] years old, the benefits may equal the risk associated with this type of repair. Patient was cautioned on staying upright if she becomes dizzy and to see her PCP in the next few days to talk about the best options for her. She was transported in a private car home via daughter as she is the caregiver to her . - ALLERGIES Allergies/Adverse Reactions: Allergies Allergy/AdvReac Type Severity Reaction Status Date / Time erythromycin base Allergy Intermediate Edema Verified 09/04/17 21:40 [Erythromycin Base] levofloxacin [From Levaquin] Allergy Intermediate Bleeding Verified 09/04/17 21: 40 Macrolide Antibiotics Allergy Intermediate Edema Verified 09/04/17 21:40 phisahex skin soap Allergy Intermediate Edema Uncoded 09/04/17 21:40 - MEDICATIONS Home Medications: Ambulatory Orders Medication Instructions Recorded Confirmed ALPRAZolam [Xanax] 0.25 mg PO DAILY 05/21/16 09/05/17 Aspirin Chewable [St Keith 81 mg PO DAILY 05/21/16 05/21/16 Aspirin] Cetirizine [ZyrTEC] 10 mg PO PRN 05/21/16 Estrogens, Conjugated [Premarin] 0.5 mg PO DAILY 05/21/16 05/21/16 Lovastatin 20 mg PO DAILY 05/21/16 09/05/17 Magnesium Oxide [Mag Ox] 400 mg PO DAILY 05/21/16 09/05/17 Methylsulfonylmethane [MSM] 1,000 mg PO DAILY 05/21/16 05/21/16 Mometasone/Formoterol [Dulera 200 200 mcg PO DAILY 05/21/16 09/05/17 Mcg/5 Mcg Inhaler] Potassium Chloride [Klor-Con M20] 20 meq PO DAILY 05/21/16 09/05/17 Roflumilast [Daliresp] 500 mcg PO DAILY 05/21/16 05/21/16 Triamterene/Hydrochlorothiazid 37.5 mg PO DAILY 05/21/16 05/21/16 [Triamterene-Hctz 37.5-25 mg Tb] raNITIdine [Zantac] 150 mg PO DAILY 05/21/16 09/05/17 Albuterol Sulf [Ventolin Hfa 1 - 2 puffs INH Q4HR PRN #1 inhaler 08/02/17 Inhaler] Metoprolol Tartrate [Lopressor] 25 mg PO BID 09/05/17 09/05/17 Nifedipine [Nifedipine ER] 15 mg PO DAILY 09/05/17 09/05/17 Warfarin [Coumadin] 5 mg PO DAILY 09/05/17 09/05/17 - PHYSICAL EXAM AT DISCHARGE General Appearance: positive: No acute distress, Alert Eyes Bilateral: positive: Normal inspection, PERRL ENT: positive: ENT inspection nml, Pharynx nml, No signs of dehydration Neck: positive: Nml inspection, Thyroid nml, No JVD, Trachea midline Respiratory: positive: Chest non-tender, No respiratory distress, Breath sounds nml Cardiovascular: positive: No gallop, Irregularly irregular, Systolic murmur ( faint, not consistant heard at aortic area.) Peripheral Pulses: positive: 2+ Abdomen: positive: Non-tender, No organomegaly, Nml bowel sounds, No distention Back: positive: Nml inspection Skin: positive: Color nml, No rash, Warm, Dry Extremities: positive: Non-tender, Full ROM, Nml appearance, No pedal edema Neurologic/Psychiatric: positive: Oriented x3, CN's nml (2-12), Motor nml, Sensation nml, Mood/affect nml Reflexes: Bicep (R): 4+, Bicep (L): 4+ - LABS Result Diagrams: 09/05/17 05:32 09/05/17 05:32 - DIAGNOSTIC IMAGING Diagnostic Imaging Results: Prelim report reviewed, Final report reviewed Diagnostic Imaging Results Comments: CTA head completed on admission: IMPRESSION: 1. Greater than 80% proximal left ICA stenosis. 2. 50% distal right common carotid artery stenosis. 3. Severe stenosis of distal left vertebral artery. Mild distal narrowing of the dominant right vertebral artery. 4. No significant intracranial stenosis or aneurysm. CTA neck on admit: IMPRESSION: 1. Greater than 80% proximal left ICA stenosis. 2. 50% distal right common carotid artery stenosis. 3. Severe stenosis of distal left vertebral artery. Mild distal narrowing of the dominant right vertebral artery. 4. No significant intracranial stenosis or aneurysm. CT head on admit: IMPRESSION: Generalized age-related cortical atrophic changes without evidence of acute intracranial abnormality MRI head 09/05/17: IMPRESSION: 1.No acute intracranial abnormality. No acute infarct, mass or hemorrhage. 2. Moderate white matter signal abnormality in the cerebral hemispheres and cerebellum. Findings are nonspecific, but typically secondary to small vessel ischemic change. Echocardiogram with bubble study on 09/05/17: Normal LV size and function. EF 70%, normal diastology for age. No significant cardiac valve disease noted. - FOLLOW UP Follow Up: You were admitted for observation after you experienced left sided numbness and tingling. We wanted to make sure that you did not have a stroke (CVA). While you were still in the ER, a CTA of your head and neck was completed that looks at the vessels that supply your brain with blood. It did show a greater than 80 % proximal left ICA stenosis and a 50% distal right common carotid artery stenosis. Please ensure that always are hydrated to prevent dizzy spells. Lie down if you are feeling dizzy. Take all of your medications as before. See your PCP on Sunday to have them check an INR (coumadin level). If you are over the age of 8080 years old, the benefits may be equal to the risks involved with fixing the circulation problems as noted above. Do NOT take your coumadin tonight, but please take it on Thanksgiving night as usual. - TIME SPENT Time Spent in Discharge (Minutes): 60
[2017-09-05 12:18] VITALS: BP 179/90
--- NOTE | 2017-09-05 13:07 | MRI Preliminary Report ---
Exam: MRI BRAIN W/O IMPRESSION: 1.No acute intracranial abnormality. No acute infarct, mass, or hemorrhage. 2. Moderate white matter signal abnormality in the cerebral hemispheres and cerebellum. Findings are nonspecific but typically secondary to small vessel ischemic change. [facility] SITE ID: [id number]
--- NOTE | 2017-09-05 13:26 | MRI Report ---
EXAM: MRI BRAIN WITHOUT CONTRAST EXAM DATE: 09/05/2017 11:13 AM. CLINICAL HISTORY: Left-sided facial, arm, and leg numbness. COMPARISON: CT scan and CT angiogram of the head 09/05/2017. CT scan of the head 09/04/2017. MRI of brigitte pretty brain 01/16/2007. TECHNIQUE: Multiplanar, multisequence T1-weighted and fluid-sensitive MR sequences of the brain were performed. Sequences optimized for routine evaluation. Other: None. IV Contrast: None. FINDINGS: Brain Volume: Age-advanced volume loss is present. Parenchyma/Dura: No mass, acute infarct or hemorrhage. Moderate confluent periventricular with patchy deep and subcortical white matter T2 and FLAIR bright signal is seen throughout the cerebral hemisph eres. Mild patchy involvement is seen in the periventricular region of the cerebellum as well. Ventricles/Cisterns: No hydrocephalus. No abnormal extra-axial fluid collection or hemorrhage. Orbits: Symmetric and unremarkable. Note is made of bilateral lens removal. Sella Turcica: The pituitary gland, cavernous sinuses, suprasellar cistern and optic chiasm are unrem arkable. IAC: Symmetric and unremarkable. Vasculature: Normal signal flow void is seen in the major arterial structures at the skull base. Sinuses: Mild polypoid mucosal thickening is seen inferiorly in the right maxillary antrum. The masto id air cells are clear. Bones: No focal pathologic appearing marrow signal changes. Other: None. IMPRESSION: 1.No acute intracranial abnormality. No acute infarct, mass or hemorrhage. 2. Moderate white matter signal abnormality in the cerebral hemispheres and cerebellum. Findings are nonspecific, but typically secondary to small vessel ischemic change. [facility] Referring Provider Line: [phone] SITE ID: [id number]
== END 2017-09-05 13:40 | disposition home or self-care (01) ==
LOC: ED 21:29 → OBS 23:19
PROVIDERS: ADMIT Internal Medicine; ATTEND Nurse Practitioner
DX: I48.91 Unspecified atrial fibrillation (principal); I10 Essential (primary) hypertension; E78.5 Hyperlipidemia, unspecified; J44.9 Chronic obstructive pulmonary disease, unspecified; I65.22 Occlusion and stenosis of left carotid artery; Z79.890 Hormone replacement therapy; K21.9 Gastro-esophageal reflux disease without esophagitis; I65.8 Occlusion and stenosis of other precerebral arteries; L40.9 Psoriasis, unspecified; R29.701 NIHSS score 1; Z79.01 Long term (current) use of anticoagulants; Z79.82 Long term (current) use of aspirin; Z79.51 Long term (current) use of inhaled steroids; Z79.899 Other long term (current) drug therapy; Z87.891 Personal history of nicotine dependence
CPT/HCPCS: 36415; 70450; 70496; 70498; 70551; 80053; 80061; 83036; 83690; 83735; 84484; 85025; 85610; 85730; 93005; 93306; 94640; 99284; 99285; A9270; G0378; J7626; Q9967

== ENCOUNTER 2017-10-16 11:57 | Outpatient (CLI) | payer MEDICARE, BC | END 2017-10-16 11:58 | LOC: LAB.R 11:57 | PROVIDERS: ATTEND Family Medicine | DX: R19.7 Diarrhea, unspecified (principal) | CPT/HCPCS: 87493 ==

== ENCOUNTER 2017-10-22 14:38 | Outpatient (CLI) | payer MEDICARE, BC | END 2017-10-22 14:39 | disposition home or self-care (01) | LOC: LAB.R 14:38 | PROVIDERS: ATTEND Family Medicine | DX: A04.72 Enterocolitis due to Clostridium difficile, not specified as recurrent (principal) | CPT/HCPCS: 87493 ==

== ENCOUNTER 2017-11-19 08:00 | Outpatient (CLI) | payer MEDICARE, BC | END 2017-11-19 08:01 | LOC: LAB.WCP 08:00 | PROVIDERS: ATTEND Family Medicine | DX: B97.89 Other viral agents as the cause of diseases classified elsewhere (principal) | CPT/HCPCS: 87275; 87276 ==

== ENCOUNTER 2017-11-29 08:00 | Outpatient (CLI) | payer MEDICARE, BC | END 2017-11-29 08:01 | disposition home or self-care (01) | LOC: LAB.WCP 08:00 | PROVIDERS: ATTEND Family Medicine | DX: R19.7 Diarrhea, unspecified (principal); Z86.19 Personal history of other infectious and parasitic diseases | CPT/HCPCS: 83630; 87045; 87046; 87177; 87209; 87493 ==

== ENCOUNTER 2018-08-13 14:51 | Outpatient (CLI) | payer MEDICARE, BC | END 2018-08-13 14:52 | disposition critical access hospital (66) | LOC: EMS 14:51 | PROVIDERS: ATTEND Surgery | DX: R06.00 Dyspnea, unspecified (principal) | CPT/HCPCS: A0425; A0427 ==

== ENCOUNTER 2018-08-13 15:12 | Inpatient (IN) | payer MEDICARE, BC ==
--- NOTE | 2018-08-13 15:40 | ED Physician Documentation ---
PD HPI URI - Stated complaint Stated Complaint: LOW O2 - Chief complaint Chief Complaint: Resp - History obtained from History obtained from: Patient - History of Present Illness Timing - onset: How many weeks ago (She has had some cough with some congestion for a few weeks and this has worsened in the last 2-3 days with increased cough, wheezing, dyspnea and general weakness. She was seen in the office today with low oxygenation at 80% which went up to 88% with 2 L. She got a nebulizer treatment which helped. She did have a fever in the office today of 101.5. She was prescribed doxycycline and she did get 1 dose of that. However she was feeling more short of breath and then noticed her heart rate increased to the 120s with a history of A. fib in the past. She called back her doctor and was referred to the ER.) Timing details: Gradual onset (over the past few weeks, but then much worse the past couple days.), Still present, Still present in ED Associated symptoms: Fever (today), Chills (since yesterday), Productive cough (initially dry cough, but productive the past couple days.). No: Sore throat, NVD, Bilateral edema Contributing factors: COPD / asthma. No: Sick contact, Travel, Immunocompromised Improves by: No: MDI/nebulizer Similar symptoms before: Has not had sx before Recently seen: Clinic (seen today and Dx with low sats, UTI, and presumed pneumonia.) Review of Systems Constitutional: reports: Fever, Chills, Myalgias, Fatigue Nose: reports: Congestion. denies: Rhinorrhea / runny nose Throat: denies: Sore throat Cardiac: reports: Palpitations (noted faster heart rate today after coming from PMD office.). denies: Chest pain / pressure GI: reports: Nausea. denies: Abdominal Pain, Vomiting, Diarrhea : denies: Dysuria, Frequency Skin: denies: Rash, Lesions Neurologic: reports: Generalized weakness. 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: Hysterectomy HEENT: Cataracts - Present Medications Home Medications: Ambulatory Orders Medication Instructions Recorded Confirmed ALPRAZolam [Xanax] 0.25 mg PO DAILY 05/21/16 09/05/17 Aspirin Chewable [St Keith 81 mg PO DAILY 05/21/16 05/21/16 Aspirin] Cetirizine [ZyrTEC] 10 mg PO PRN 05/21/16 Estrogens, Conjugated [Premarin] 0.5 mg PO DAILY 05/21/16 05/21/16 Lovastatin 20 mg PO DAILY 05/21/16 09/05/17 Magnesium Oxide [Mag Ox] 400 mg PO DAILY 05/21/16 09/05/17 Methylsulfonylmethane [MSM] 1,000 mg PO DAILY 05/21/16 05/21/16 Mometasone/Formoterol [Dulera 200 200 mcg PO DAILY 05/21/16 09/05/17 Mcg/5 Mcg Inhaler] Potassium Chloride [Klor-Con M20] 20 meq PO DAILY 05/21/16 09/05/17 Roflumilast [Daliresp] 500 mcg PO DAILY 05/21/16 05/21/16 Triamterene/Hydrochlorothiazid 37.5 mg PO DAILY 05/21/16 05/21/16 [Triamterene-Hctz 37.5-25 mg Tb] raNITIdine [Zantac] 150 mg PO DAILY 05/21/16 09/05/17 Albuterol Sulf [Ventolin Hfa 1 - 2 puffs INH Q4HR PRN #1 inhaler 08/02/17 Inhaler] Metoprolol Tartrate [Lopressor] 25 mg PO BID 09/05/17 09/05/17 Nifedipine [Nifedipine ER] 15 mg PO DAILY 09/05/17 09/05/17 Warfarin [Coumadin] 5 mg PO DAILY 09/05/17 09/05/17 - Allergies Allergies/Adverse Reactions: Allergies Allergy/AdvReac Type Severity Reaction Status Date / Time erythromycin base Allergy Intermediate Edema Verified 09/04/17 21:40 [Erythromycin Base] levofloxacin [From Levaquin] Allergy Intermediate Bleeding Verified 09/04/17 21:40 Macrolide Antibiotics Allergy Intermediate Edema Verified 09/04/17 21:40 phisahex skin soap Allergy Intermediate Edema Uncoded 09/04/17 21:40 - Living Situation Living Situation: reports: Alone Living Arrangement: reports: At home - Social History Does the pt smoke?: No Smoking Status: Never smoker Does the pt drink ETOH?: No Does the pt have substance abuse?: No - Family History Family history: reports: Non contributory - Immunizations Immunizations are current?: Yes - POLST Patient has POLST: No POLST Status: DNR PD ED PE NORMAL - Vitals Vital signs reviewed: Yes (sats 80s on RA; 95% on 2 lpm NC. ) - General General: Alert and oriented X 3, No acute distress (but has some mild work of breathing; able to talk sentences though. ), Well developed/nourished - HEENT HEENT: Ears normal, Pharynx benign - Neck Neck: Supple, no meningeal sign, No adenopathy - Cardiac Cardiac: No: RRR (regular but tachycardic at 110-125) - Respiratory Respiratory: No: Clear bilaterally (some wet sounds in bases and central bronchial area. Expiratory wheezing noted scattered. ) - Abdomen Abdomen: Soft, Non tender - Female Female : Deferred - Rectal Rectal: Deferred - Back Back: No CVA TTP - Derm Derm: Normal color, Warm and dry - Extremities Extremities: No deformity, No tenderness to palpate, Normal ROM s pain, No edema, No calf tenderness / cord - Neuro Neuro: Alert and oriented X 3, No motor deficit, Normal speech Eye Opening: Spontaneous Motor: Obeys Commands Verbal: Oriented GCS Score: 15 Results - Vitals Vitals: Vital Signs - 24 hr 08/13/18 08/13/18 15:20 16:00 Temperature 37.7 C H Heart Rate 123 H 116 H Respiratory 22 34 H Rate Blood Pressure 164/67 H 176/75 H O2 Saturation 95 93 Oxygen O2 Source Nasal cannula Oxygen Flow Rate 2 - EKG (time done) 17:02 Rate: Rate (enter#) (108) Rhythm: Sinus tachycardia [place]: Normal Intervals: RBBB QRS: Normal Ischemia: Normal ST segments, Non specific changes - Labs Labs: Laboratory Tests 08/13/18 08/13/18 08/13/18 16:07 16:07 16:07 WBC 19.6 H RBC 4.44 Hgb 12.9 Hct 38.5 MCV 86.8 MCH 29.0 MCHC 33.4 RDW 13.5 Plt Count 190 MPV 8.6 Neut # (Auto) 18.2 H Lymph # (Auto) 0.8 L Stanley # (Auto) 0.5 Eos # (Auto) 0.0 Baso # (Auto) 0.1 Absolute Nucleated RBC 0.00 Nucleated RBC % 0.0 PT INR Sodium 134 L Potassium 3.1 L Chloride 99 L Carbon Dioxide 22 Anion Gap 13.0 BUN 27 H Creatinine 0.9 Estimated GFR (MDRD) 60 L Glucose 128 H Lactic Acid 1.8 Calcium 9.2 Magnesium Total Bilirubin 0.8 AST 27 ALT 18 Alkaline Phosphatase 75 Total Protein 7.5 Albumin 3.8 Globulin 3.7 Albumin/Globulin Ratio 1.0 Lipase 22 08/13/18 08/13/18 16:07 16:07 WBC RBC Hgb Hct MCV MCH MCHC RDW Plt Count MPV Neut # (Auto) Lymph # (Auto) Stanley # (Auto) Eos # (Auto) Baso # (Auto) Absolute Nucleated RBC Nucleated RBC % PT 46.6 H INR 4.2 H Sodium Potassium Chloride Carbon Dioxide Anion Gap BUN Creatinine Estimated GFR (MDRD) Glucose Lactic Acid Calcium Magnesium 1.7 Total Bilirubin AST ALT Alkaline Phosphatase Total Protein Albumin Globulin Albumin/Globulin Ratio Lipase - Rads (name of study) chest Radiology: Prelim report reviewed (Streaky bibasilar infiltrates consistent with pneumonia), EMP read contemporaneously PD MEDICAL DECISION MAKING - ED course Complexity details: reviewed results, re-evaluated patient (upon arrival here her heart rate is faster and seems irregular. History of paroxysmal atrial fib. Given Metorpolol 5 mg IV. The rate improved to 100-110 and seems regular now. ECG done after that showing poor baseline, but appears sinus tachycardia. ), considered differential, d/w patient, d/w outside solar sales consultant Departure - Departure Disposition: [facility] DC/Xfer Clinical Impression: Hypoxia, COPD with exacerbation Dyspnea Qualifiers: Dyspnea type: shortness of breath Qualified Code(s): R06.02 - Shortness of breath Pneumonia Qualifiers: Pneumonia type: due to unspecified organism Laterality: bilateral Lung location: lower lobe of lung Qualified Code(s): J18.1 - Lobar pneumonia, unspecified organism Atrial fibrillation Qualifiers: Atrial fibrillation type: paroxysmal Qualified Code(s): I48.0 - Paroxysmal atrial fibrillation Condition: Stable Record reviewed to determine appropriate education?: Yes
--- NOTE | 2018-08-13 15:55 | XRAY Report ---
Reason: cough fever hypoxemia Procedure Date: 08/13/2018 Accession Number: [id number] / [id number] Procedure: XR - Chest 2 View X-Ray CPT Code: 88110 FULL RESULT: EXAM: CHEST RADIOGRAPHY EXAM DATE: 08/13/2018 03:32 PM. CLINICAL HISTORY: Cough, fever, hypoxemia. COMPARISON: Chest radiograph from 11/19/2017. TECHNIQUE: 2 views. FINDINGS: Lungs/Pleura: There is streaky bibasilar opacity, which is increased from the prior examination. Mild biapical pleural-parenchymal scarring demonstrated. No large pleural effusion. Posterior costophrenic sulci are obscured by infiltrate. No pneumothorax. Mediastinum: Cardiomediastinal silhouette and pulmonary vasculature are within normal limits. Other: There is dextroscoliosis of the thoracic spine with multilevel degenerative change. IMPRESSION: New streaky bibasilar opacities, concerning for aspiration or pneumonia given the clinical history. [facility]
[2018-08-13] MEDS ORDERED: SODIUM CHLORIDE 0.9% 1,000 ML IV ONE ×2 (16:13→17:10)
[2018-08-13] MEDS ORDERED: cefTRIAXone 1 GM VIAL IVP STA (16:13)
[2018-08-13] MEDS ORDERED: IPRATROPIUM/ALBUTEROL 3 ML NEB INH STA (16:14)
[2018-08-13] MEDS ORDERED: METOPROLOL 5 MG/5 ML VIAL IVP STA (16:15)
[2018-08-13 16:19] LABS: BASOPHILS # (AUTO) 0.1 10^3/uL (0.0-0.1); BASOPHILS % (AUTO) 0.3 %; EOSINOPHILS % (AUTO) 0.1 %; HGB - HEMOGLOBIN 12.9 g/dL (12.0-16.0); LYMPHOCYTES # (AUTO) 0.8 10^3/uL (1.5-3.5); LYMPHOCYTES % (AUTO) 3.9 %; MEAN CORPUSCULAR HGB CONC 33.4 g/dL (32.0-36.0); MEAN CORPUSCULAR VOLUME 86.8 fL (81.0-99.0); MEAN PLATELET VOLUME 8.6 fL (7.9-10.8); MONOCYTES # (AUTO) 0.5 10^3/uL (0.0-1.0); MONOCYTES % (AUTO) 2.8 %; NEUTROPHILS # (AUTO) 18.2 10^3/uL (1.5-6.6); NEUTROPHILS % (AUTO) 92.9 %; PLT - PLATELET COUNT 190 10^3/uL (130-450); RED BLOOD COUNT 4.44 10^6/uL (4.20-5.40); RED CELL DISTRIBUTION WIDTH 13.5 % (12.0-15.0); WHITE BLOOD COUNT 19.6 x10^3/uL (4.8-10.8)
[2018-08-13 16:27] LABS: INR 4.2 (0.8-1.2); PT - PROTHROMBIN TIME 46.6 secs (9.9-12.6)
[2018-08-13 16:32] LABS: ALBUMIN 3.8 g/dL (3.2-5.5); BILIRUBIN,TOTAL 0.8 mg/dL (0.2-1.0); CALCIUM 9.2 mg/dL (8.5-10.3); CREATININE 0.9 mg/dL (0.4-1.0); TOTAL PROTEIN 7.5 g/dL (6.7-8.2)
[2018-08-13] MEDS ORDERED: ONDANSETRON 4 MG/2 ML VIAL IVP PRN (16:34)
[2018-08-13] MEDS ORDERED: oxyCODONE 5 MG TABLET PO PRN (16:34)
[2018-08-13] MEDS ORDERED: ACETAMINOPHEN 325 MG TABLET PO PRN (16:34)
[2018-08-13] MEDS ORDERED: ONDANSETRON ODT 4 MG TABLET TL PRN (16:34)
[2018-08-13] MEDS ORDERED: ONDANSETRON 4 MG/2 ML VIAL IVP STA (16:36)
[2018-08-13] MEDS ORDERED: POTASSIUM CHLOR 10 MEQ/100 ML 10 MEQ/100 ML BAG IV ONE (16:54)
[2018-08-13] MEDS ORDERED: ACETAMINOPHEN 325 MG TABLET PO STA (17:10)
--- NOTE | 2018-08-13 17:27 | HISTORY & PHYSICAL EXAMINATION ---
Chief Complaint - Chief Complaint Chief Complaint: Cough, dysuria Respiratory Admission HPI - History Obtained From Records Reviewed: RN notes reviewed - History of Present Illness Severity at the worst: reports: Moderate Associated Pain Quality Description: reports: Dull Context of Onset: reports: Exertion Timing: reports: Constant Duration: reports: Other (5-6 weeks) Improved with: reports: Rest Worsened by: reports: Exertion, Other (coughing) Associated symptoms: reports: Nausea (first episode in the ER), Vomiting (first episode in the ER) HPI Comment/Other: 83 yo female with chronic atrial fibrillation, psoriasis, hypertension, hyperlipidemia, COPD presents to the ED with cough of 5-6 weeks and dysuria x 3- 4 weeks. Pt states she use home nebulizer and this helped with her breathing. Pt states 10 days ago the productive cough became nonproductive. Pt also states she has had dysuria. Pt states the pain extends into her right flank resulting her unable to sleep on her right side at night. Pt states she started to have a fever, chills. Pt states she went to see her primary care physician this morning who refused to let her go home. In the physicians office, pt oxygen saturation was 80% with atrial fibrillation in the 120's. Pt received a breathing treatment in office and placed on 2 L which got her to 88% saturation. Pt physician called the ambulance who transported her to the ED. Pt states she had one episode of nausea and vomiting at the ED. Pt denies hematochezia, hematemesis, change bowel movements, urinary incontinence/frequency. Pt is not on any home oxygenation. PMH/PSH - Past Medical History Cardiovascular: positive: Hypertension, Atrial fibrillation Respiratory: positive: Asthma, COPD, Shortness of breath Endocrine/Autoimmune: positive: None GI: positive: GERD, Colon polyps, Other PREVENTIVE MEDICINE SPECIALIST: positive: None : positive: None HEENT: positive: Other Psych: positive: None Musculoskeletal: positive: None Derm: positive: Psoriasis MRSA Hx?: No - Past Surgical History General: positive: Appendectomy, Colonoscopy /PREVENTIVE MEDICINE SPECIALIST: positive: Hysterectomy, Other ( vaginal births) HEENT: positive: Cataracts Social & Family Hx - Living Situation Living Arrangement: At home Living Situation: Alone - Social History Does the pt smoke?: No Smoking Status: Former smoker (30 pack history of smoking) Does the pt drink ETOH?: No ETOH Use: Liquor (0.5 shot per week) Does the pt have substance abuse?: No Additional Social History: with 2 step children. Moved to [facility] in 2. of 2 husbands with most recent passing 5 months prior due to dementia and chronic issues. 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 - POLST Patient has POLST: No POLST Status: DNR - Family History Family History: Mother: (Mom - cancer ; Dad - heart attack; Brother - Kidney Failure), Cancer (breast cancer), Father: , [place], Sister: Alive and Well, Brother: , Renal Disease/Failure Family History Comment/Other: siblings: Children: Meds/Allgy - Home Medications Home Medications: Ambulatory Orders Medication Instructions Recorded Confirmed ALPRAZolam [Xanax] 0.25 mg PO QPM PRN 05/21/16 09/05/17 Aspirin Chewable [[place] 81 mg PO DAILY 05/21/16 05/21/16 Aspirin] Lovastatin 20 mg PO DAILY 05/21/16 08/13/18 Magnesium Oxide [Mag Ox] 400 mg PO DAILY 05/21/16 08/13/18 Methylsulfonylmethane [MSM] 1,000 mg PO DAILY 05/21/16 05/21/16 Mometasone/Formoterol [Dulera 200 200 mcg PO DAILY 05/21/16 08/13/18 Mcg/5 Mcg Inhaler] Potassium Chloride [Klor-Con M20] 20 meq PO BID 05/21/16 09/05/17 Roflumilast [Daliresp] 250 mcg PO DAILY 05/21/16 05/21/16 Triamterene/Hydrochlorothiazid 1 tab PO DAILY 05/21/16 05/21/16 [Triamterene-Hctz 37.5-25 mg Tb] raNITIdine [Zantac] 150 mg PO DAILY 05/21/16 08/13/18 Albuterol Sulf [Ventolin Hfa 1 - 2 puffs INH Q4HR PRN #1 inhaler 08/02/17 Inhaler] Metoprolol Tartrate [Lopressor] 25 mg PO BID 09/05/17 09/05/17 Nifedipine [Nifedipine ER] 15 mg PO QPM 09/05/17 09/05/17 Warfarin [Coumadin] 5 mg PO UD 09/05/17 09/05/17 Estrogens, Conjugated [Premarin] 0.3125 mg PO UD 08/14/18 08/14/18 Saccharomyces Boulardii [Florastor] 250 mg PO DAILY 08/14/18 08/14/18 - Allergies Allergies/Adverse Reactions: Allergies Allergy/AdvReac Type Severity Reaction Status Date / Time erythromycin base Allergy Intermediate Edema Verified 09/04/17 21:40 [Erythromycin Base] levofloxacin [From Levaquin] Allergy Intermediate Bleeding Verified 09/04/17 21:40 Macrolide Antibiotics Allergy Intermediate Edema Verified 09/04/17 21:40 phisahex skin soap Allergy Intermediate Edema Uncoded 09/04/17 21:40 Review of Systems - Constitutional Constitutional: reports: Fever, Chills, Weakness - Eyes Eyes: denies: Pain, Irritation, Amaurosis, Blurred vision - Ears, Nose & Throat Ears, Nose & Throat: denies: Hearing loss, Vertigo, Nasal obstruction, Nasal congestion, Postnasal drainage, Sore throat - Cardiovascular Cariovascular: reports: Irregular heart rate (chronic atrial fibrillation) - Respiratory Respiratory: reports: Cough, Sputum production (stopped 10 days ago and became nonproductive), Wheezing, SOB with exertion, Other (chest wall aches from cough) - Gastrointestinal Gastrointestinal: reports: Nausea (One episode in the ED), Vomiting (One episode in the ED). denies: Diarrhea, Change in bowel habits - Genitourinary Genitourinary: reports: Dysuria (3-4 weeks), Flank pain. denies: Hematuria - Musculoskeletal Musculoskeletal: denies: Muscle pain, Back pain, Muscle aches, Joint pain - Integumentary Integumentary: denies: Rash, Pigment changes - Neurological Neurological: reports: General weakness. denies: Focal weakness, Headache, Dizziness, Memory problems, Seizures, Incoordination - Psychiatric Psychiatric: denies: Depression, Anxiety - Endocrine Endocrine: denies: Polyuria, Polydypsia, Polyphagia - Hematologic/Lymphatic Hematologic/Lymphatic: denies: Anemia Prior Level of Functionality: 83 yo female with PMH of chronic atrial fibrillation, psoriasis, hyperlipidemia, COPD, HTN, vitiligo presents for cough and dysuria. Pt states her 5 months prior and has been living alone since his passing. Pt is accompanied to the ER with a friend. Pt is staying active and social with friends since her husbands passing. Pt states she spends time cooking and socializing. She still drives. Pays her own bills. Exam - Vital Signs Vital Signs: Vital Signs x48h Temp Pulse Resp BP Pulse Ox 08/13/18 17:05 38.3 C H 110 H 24 156/67 H 96 08/13/18 16:34 125 H 24 08/13/18 16:00 116 H 34 H 176/75 H 93 08/13/18 15:20 37.7 C H 123 H 22 164/67 H 95 - Physical Exam General Appearance: positive: Mild distress, Other (Well-nourished well- developed elderly woman) Eyes Bilateral: positive: Normal inspection, PERRL ENT: positive: ENT inspection nml, Pharyngeal erythema (But no exudate) Neck: positive: Nml inspection, Trachea midline Respiratory: positive: Chest non-tender, Wheezes, Rhonchi. negative: No respiratory distress, Breath sounds nml Cardiovascular: positive: No murmur, Irregularly irregular (atrial fibrillat ion), Tachycardia. negative: Gallop/S4, Friction rub Peripheral Pulses: positive: 2+ Abdomen: positive: Non-tender, No organomegaly, Nml bowel sounds, No distention. negative: Tenderness Skin: positive: Color nml Extremities: positive: Non-tender, Full ROM, Nml appearance Neurologic/Psychiatric: positive: Oriented x3, CN's nml (2-12), Motor nml Results - Lab Results Lab results reviewed: Yes Fish Bones: 08/14/18 05:55 08/14/18 05:55 Other Lab Results: Lab Results x24hrs 08/13/18 08/13/18 08/13/18 Range/Units 16:07 16:07 16:07 WBC (4.8-10.8) x10^3/uL RBC (4.20-5.40) 10^6/uL Hgb (12.0-16.0) g/dL Hct (37.0-47.0) % MCV (81.0-99.0) fL MCH (27.0-31.0) pg MCHC (32.0-36.0) g/dL RDW (12.0-15.0) % Plt Count (130-450) 10^3/uL MPV (7.9-10.8) fL Neut # (Auto) (1.5-6.6) 10^3/uL Lymph # (Auto) (1.5-3.5) 10^3/uL [place] # (Auto) (0.0-1.0) 10^3/uL Eos # (Auto) (0.0-0.7) 10^3/uL Baso # (Auto) (0.0-0.1) 10^3/uL Absolute Nucleated RBC x10^3/uL Nucleated RBC % /100WBC PT 46.6 H (9.9-12.6) secs INR 4.2 H (0.8-1.2) Sodium (135-145) mmol/L Potassium (3.5-5.0) mmol/L Chloride (101-111) mmol/L Carbon Dioxide (21-32) mmol/L Anion Gap (6-13) BUN (6-20) mg/dL Creatinine (0.4-1.0) mg/dL Estimated GFR (MDRD) (>89) Glucose (70-100) mg/dL Lactic Acid 1.8 (0.5-2.2) mmol/L Calcium (8.5-10.3) mg/dL Magnesium 1.7 (1.7-2.8) mg/dL Total Bilirubin (0.2-1.0) mg/dL AST (10-42) IU/L ALT (10-60) IU/L Alkaline Phosphatase (42-121) IU/L Total Protein (6.7-8.2) g/dL Albumin (3.2-5.5) g/dL Globulin (2.1-4.2) g/dL Albumin/Globulin Ratio (1.0-2.2) Lipase (22-51) U/L 08/13/18 08/13/18 Range/Units 16:07 16:07 WBC 19.6 H (4.8-10.8) x10^3/uL RBC 4.44 (4.20-5.40) 10^6/uL Hgb 12.9 (12.0-16.0) g/dL Hct 38.5 (37.0-47.0) % MCV 86.8 (81.0-99.0) fL MCH 29.0 (27.0-31.0) pg MCHC 33.4 (32.0-36.0) g/dL RDW 13.5 (12.0-15.0) % Plt Count 190 (130-450) 10^3/uL MPV 8.6 (7.9-10.8) fL Neut # (Auto) 18.2 H (1.5-6.6) 10^3/uL Lymph # (Auto) 0.8 L (1.5-3.5) 10^3/uL [place] # (Auto) 0.5 (0.0-1.0) 10^3/uL Eos # (Auto) 0.0 (0.0-0.7) 10^3/uL Baso # (Auto) 0.1 (0.0-0.1) 10^3/uL Absolute Nucleated RBC 0.00 x10^3/uL Nucleated RBC % 0.0 /100WBC PT (9.9-12.6) secs INR (0.8-1.2) Sodium 134 L (135-145) mmol/L Potassium 3.1 L (3.5-5.0) mmol/L Chloride 99 L (101-111) mmol/L Carbon Dioxide 22 (21-32) mmol/L Anion Gap 13.0 (6-13) BUN 27 H (6-20) mg/dL Creatinine 0.9 (0.4-1.0) mg/dL Estimated GFR (MDRD) 60 L (>89) Glucose 128 H (70-100) mg/dL Lactic Acid (0.5-2.2) mmol/L Calcium 9.2 (8.5-10.3) mg/dL Magnesium (1.7-2.8) mg/dL Total Bilirubin 0.8 (0.2-1.0) mg/dL AST 27 (10-42) IU/L ALT 18 (10-60) IU/L Alkaline Phosphatase 75 (42-121) IU/L Total Protein 7.5 (6.7-8.2) g/dL Albumin 3.8 (3.2-5.5) g/dL Globulin 3.7 (2.1-4.2) g/dL Albumin/Globulin Ratio 1.0 (1.0-2.2) Lipase 22 (22-51) U/L - Diagnostic Imaging Results Diagnostic Imaging Results: positive: Final report reviewed Diagnostic Imaging Results Comments: EXAM: CHEST RADIOGRAPHY EXAM DATE: 08/13/2018 03:32 PM. CLINICAL HISTORY: Cough, fever, hypoxemia. COMPARISON: Chest radiograph from 11/19/2017. TECHNIQUE: 2 views. FINDINGS: Lungs/Pleura: There is streaky bibasilar opacity, which is increased from the prior examination. Mild biapical pleural-parenchymal scarring demonstrated. No large pleural effusion. Posterior costophrenic sulci are obscured by infiltrate. No pneumothorax. Mediastinum: Cardiomediastinal silhouette and pulmonary vasculature are within normal limits. Other: There is dextroscoliosis of the thoracic spine with multilevel degenerative change. IMPRESSION: New streaky bibasilar opacities, concerning for aspiration or pneumonia given the clinical history. - EKG Results EKG Interpreted Independently: No EKG Comparison: positive: Old EKG unavailable EKG Findings: NSR with RBBB. Impression/Plan - Problem List Problem List: All Active Problems Atrial fibrillation (Acute) COPD with exacerbation (Acute) Dyspnea (Acute) Hypoxia (Acute) Pneumonia (Acute) Abdominal pain (Acute) Bronchitis, acute (Acute) COPD (chronic obstructive pulmonary disease) (Acute) Cat bite (Acute) Cellulitis (Acute) Cerebrovascular accident (CVA) (Acute) Episodic atrial fibrillation (Acute) Hyperlipidemia (Acute) Hypertension (Acute) Left sided numbness (Acute) Tachycardia (Acute) 1. Acute respiratory failure with hypoxia cause by pneumonia,community acquired. Acute Plan: IV abx with rocephin aztreonam bc of macrolide allergy, Day #1. adjust abx on the basis of sputum culture or blood culture. 2. Possible UTI presenting as dysuria and flank pain. Acute Plan: urinalysis and culture IV abx and IVF 3. Hypoxia Acute. Not in acute respiratory failure. 80% in PCP office. On 2 liters she is still 88%. She has an echocardiogram from August 2017 and her ejection fraction was 70% at that time. No evidence of acute congestive heart failure. Most likely cause is pneumonia and COPD in this elderly woman. Plan: 2L of oxygen maintained abx on metered dose inhaled steroids at home, and will change to inhaled steroids via neb here. prn albuterol fixed schedule perforomist 4. Atrial Fibrillation Chronic, rate is uncontrolled at 120. Already on coumadin. INR 2.6 Plan: Continue home medication for rate control continue comadin. Watch INR in face of abx. 5. Hypertension: Chronic Plan: Continue home medication for HTN. Core Measures - Anticipated LOS I expect patient to be DC'd or transferred within 96 hours.: Yes - DVT/VTE - Prophylaxis VTE/DVT Device ordered at admit?: Yes - Stroke - Rehab Assessment Rehab services assessment to be ordered?: No - AMI - Statin at Admit Aspirin Prescribed on Admit: No History of Present Illness - History of Present Illness Timing/Duration: week (5-6) Cough Quality/Degree: dry cough (since 10 days ago), productive cough (up until 10 days prior ) Possible Cause: chronic episodes (COPD) Modifying Factors: improves with: activity, albuterol nebulizer, coughing Associated Symptoms: cough, fever/chills, headache Allergies/Adverse Reactions: Allergies erythromycin base [Erythromycin Base] Allergy (Intermediate, Verified 09/04/17 21:40) Edema levofloxacin [From Levaquin] Allergy (Intermediate, Verified 09/04/17 21:40) Bleeding Macrolide Antibiotics Allergy (Intermediate, Verified 09/04/17 21:40) Edema phisahex skin soap Allergy (Intermediate, Uncoded 09/04/17 21:40) Edema Home Medications: Ambulatory Orders Estrogens, Conjugated [Premarin] 0.3125 mg PO UD 08/14/18 Saccharomyces Boulardii [Florastor] 250 mg PO DAILY 08/14/18
[2018-08-13] MEDS: SODIUM CHLORIDE 0.9% 1,000 ML IV SCH (19:39)
[2018-08-13] MEDS: AZTREONAM 2 GM in SODIUM CHLORIDE 0.9% MINIBAG 100 ML IV SCH (19:39)
[2018-08-13] MEDS: SACCHAROMYCES BOULARDII 250 MG CAPSULE PO SCH (19:39)
[2018-08-13] MEDS: SODIUM CHLORIDE FLUSH 0.9% 10 ML SYRINGE IVP SCH (19:40)
[2018-08-13] MEDS: ATORVASTATIN 10 MG TABLET PO SCH (21:14)
[2018-08-13] MEDS: METOPROLOL TARTRATE 25 MG TABLET PO SCH (21:14)
[2018-08-13 21:37] LABS: BILIRUBIN,URINE NEGATIVE (NEGATIVE); GLUCOSE, URINE (UA) NEGATIVE (NEGATIVE); KETONES,URINE (UA) NEGATIVE (NEGATIVE); LEUKOCYTE ESTERASE, URINE SMALL (NEGATIVE); NITRITE,URINE NEGATIVE (NEGATIVE); OCCULT BLOOD,URINE NEGATIVE (NEGATIVE); PH,URINE 5.5 PH (5.0-7.5); PROTEIN,URINE NEGATIVE (NEGATIVE); UROBILINOGEN,URINE 0.2 (NORMAL) E.U./dL (NORMAL)
[2018-08-13] MEDS: ALBUTEROL NEB 2.5 MG/3 ML INH PRN (21:46)
[2018-08-13 21:52] LABS: CLARITY,URINE CLEAR (CLEAR)
[2018-08-13 21:53] LABS: BACTERIA,URINE Few /HPF (None Seen); RBC,URINE None Seen /HPF (0-5); SQUAMOUS EPITHELIAL CELL,UR FEW Squamous (<= Few)
[2018-08-14] MEDS: AZTREONAM 2 GM in SODIUM CHLORIDE 0.9% MINIBAG 100 ML IV SCH ×4 (01:01→18:51)
[2018-08-14] MEDS: SODIUM CHLORIDE FLUSH 0.9% 10 ML SYRINGE IVP SCH ×3 (01:05→18:06)
[2018-08-14 06:19] LABS: BASOPHILS % (AUTO) 0.2 %; EOSINOPHILS % (AUTO) 0.2 %; HGB - HEMOGLOBIN 10.9 g/dL (12.0-16.0); LYMPHOCYTES % (AUTO) 4.8 %; MEAN CORPUSCULAR HEMOGLOBIN 28.6 pg (27.0-31.0); MEAN CORPUSCULAR HGB CONC 32.7 g/dL (32.0-36.0); MEAN CORPUSCULAR VOLUME 87.5 fL (81.0-99.0); MEAN PLATELET VOLUME 8.6 fL (7.9-10.8); NEUTROPHILS % (AUTO) 91.8 %; PLT - PLATELET COUNT 162 10^3/uL (130-450); RED BLOOD COUNT 3.83 10^6/uL (4.20-5.40); RED CELL DISTRIBUTION WIDTH 13.5 % (12.0-15.0); WHITE BLOOD COUNT 24.1 x10^3/uL (4.8-10.8)
[2018-08-14 06:22] LABS: PT - PROTHROMBIN TIME 51.5 secs (9.9-12.6)
[2018-08-14 06:25] LABS: ABNORMAL LYMPHS % (MANUAL) 0 %
[2018-08-14 06:26] LABS: CALCIUM 7.8 mg/dL (8.5-10.3); CREATININE 0.9 mg/dL (0.4-1.0)
[2018-08-14 06:29] LABS: INR 4.7 (0.8-1.2)
[2018-08-14 06:48] LABS: BAND NEUTROPHILS % (MANUAL) 2 %; DIFFERENTIAL COMMENT MANUAL DIFFERENTIAL; LYMPHOCYTES # (MANUAL) 2.2 10^3/uL (1.5-3.5); LYMPHOCYTES % (MANUAL) 9 %; MONOCYTES # (MANUAL) 0.2 10^3/uL (0.0-1.0); NEUTROPHILS # (MANUAL) 21.7 10^3/uL (1.5-6.6); NEUTROPHILS % (MANUAL) 88 %; PLATELET ESTIMATE, MANUAL NORMAL (130-450,000) (NORMAL); RBC MORPHOLOGY (MULTIPLE) NORMAL APPEARANCE (NORMAL)
[2018-08-14] MEDS: POTASSIUM CHLOR 10 MEQ/100 ML 10 MEQ/100 ML BAG IV SCH ×6 (07:00→18:12)
[2018-08-14] MEDS: FORMOTEROL FUMARATE NEB 20 MCG/2 ML INH SCH ×2 (07:34→19:26)
[2018-08-14] MEDS: BUDESONIDE 0.5 MG/2 ML NEB INH SCH ×2 (07:34→19:26)
[2018-08-14] MEDS: ALPRAZolam 0.25 MG TABLET PO SCH ×3 (08:29→20:43)
[2018-08-14] MEDS: METOPROLOL TARTRATE 25 MG TABLET PO SCH ×3 (08:29→20:36)
[2018-08-14] MEDS: SACCHAROMYCES BOULARDII 250 MG CAPSULE PO SCH ×2 (08:30→18:06)
[2018-08-14] MEDS: POTASSIUM CHLORIDE 20 MEQ TABLET PO SCH ×3 (08:30→21:17)
[2018-08-14] MEDS: TRIAMT/HCTZ 37.5 MG/25 MG CAPSULE PO SCH ×2 (08:30→09:47)
[2018-08-14] MEDS: CETIRIZINE 10 MG TABLET PO SCH ×2 (08:30→09:35)
[2018-08-14] MEDS: ASPIRIN CHEW 81 MG TABLET PO SCH (08:31)
[2018-08-14] MEDS: POLYETHYLENE GLYCOL 3350 17 GM PACKET PO SCH (08:32)
[2018-08-14] MEDS ORDERED: WARFARIN 5 MG TABLET PO SCH (09:00)
[2018-08-14] MEDS ORDERED: NON FORMULARY MED (Lovastatin [Lovastatin] 20 MG) PO SCH (09:00)
[2018-08-14] MEDS ORDERED: NIFEdipine ER 30 MG TABLET PO SCH (09:00)
[2018-08-14] MEDS ORDERED: MAGNESIUM OXIDE 400 MG TABLET PO SCH (09:00)
[2018-08-14] MEDS: SODIUM CHLORIDE 0.9% 1,000 ML IV SCH (09:22)
--- NOTE | 2018-08-14 10:45 | PROVIDER PROGRESS NOTE ---
Subjective - Prog Note Date Prog Note Date: 08/14/18 Prog Note Time: 08:30 - Subjective Pt reports feeling: Improved Subjective: 83 yo female with PMH of chronic atrial fibrillation, psoriasis, hypertension, hyperlipidemia, COPD is inpatient stay 2 following presentation to the ED with cough of 5-6 weeks and dysuria x 3-4 weeks. Pt states she had a breathing treatment last night which resulted in productive cough. Pt states the cough was green in production. Pt confirms right flank pain, but was able to sleep on her right side more than previously noted. Pt denies dysuria. Pt has not had a bowel movement in 2 days, but states this is normal frequency. Pt denies any nausea, vomiting, chest pain, abdominal pain, headache, blurry vision, hematuria, change in urinary frequency. Pt is tolerating PO foods. Pt is able to walk without any assistance. Current Medications - Current Medications Current Medications: Current Medications Generic Name Dose Route Start Last Admin Trade Name Freq PRN Reason Stop Dose Admin Albuterol 2.5 mg 08/13/18 16:36 08/13/18 21:46 INH 2.5 mg Q4HR PRN Administration Wheezing Aspirin 81 mg 08/14/18 09:00 08/14/18 08:31 [facility] Aspirin PO Not Given DAILY ANDREZ Atorvastatin Calcium 10 mg 08/13/18 21:00 08/13/18 21:14 Lipitor PO 10 mg QPM ANDREZ Administration Budesonide 0.5 mg 08/14/18 07:00 08/14/18 07:34 Pulmicort INH 0.5 mg RTBID ANDREZ Administration Cetirizine HCl 10 mg 08/14/18 09:00 08/14/18 09:35 Zyrtec PO Not Given DAILY ANDREZ Formoterol Fumarate 20 mcg 08/14/18 07:00 08/14/18 07:34 Perforomist INH 20 mcg RTBID ANDREZ Administration Aztreonam 2 gm/ Sodium 100 mls @ 100 mls/hr 08/13/18 18:00 08/14/18 06:01 Chloride IV 100 mls/hr Q6HR ANDREZ Administration Sodium Chloride 1,000 mls @ 100 mls/hr 08/13/18 17:00 08/14/18 09:22 Normal Saline 0.9% IV 08/14/18 12:59 100 mls/hr .Q10H ANDREZ Administration Potassium Chloride 10 meq in 100 mls @ 100 mls/hr 08/14/18 07:00 08/14/18 10:26 Potassium Chloride IV 08/14/18 12:59 100 mls/hr Q1H ANDREZ Administration Metoprolol Tartrate 25 mg 08/13/18 21:00 08/14/18 09:34 Lopressor PO 25 mg BID ANDREZ Administration Polyethylene Glycol 17 gm 08/14/18 09:00 08/14/18 08:32 Miralax PO Not Given DAILY ANDREZ Potassium Chloride 20 meq 08/14/18 09:00 08/14/18 09:35 K-Dur PO 20 meq DAILY ANDREZ Administration Ranitidine HCl 150 mg 08/14/18 09:00 08/14/18 09:35 Zantac PO Not Given DAILY ANDREZ Saccharomyces Boulardii 250 mg 08/13/18 17:00 08/14/18 08:30 Florastor PO 250 mg BIDWM ANDREZ Administration Sodium Chloride 10 ml 08/13/18 17:00 08/14/18 08:32 Normal Saline Flush 0.9% IVP Not Given 0100,0900,1700 ANDREZ Triamterene/HCTZ 1 cap 08/14/18 09:00 08/14/18 09:47 Dyazide PO 1 cap DAILY ANDREZ Administration Objective - Vital Signs/Intake & Output Reviewed Vital Signs: Yes Vital Signs: Vital Signs x48h Temp Pulse Pulse Resp BP BP Pulse Ox 08/14/18 09:34 121/54 L 08/14/18 08:00 36.5 C 88 16 121/54 L 94 08/14/18 07:38 90 18 Intake & Output: Intake & Output 08/11/18 08/12/18 08/13/18 08/14/18 23:59 23:59 23:59 23:59 Intake Total 1500 1650.000 Output Total 150 250 Balance 1350 1400.000 - Objective General Appearance: positive: No acute distress, Alert Eyes Bilateral: positive: Normal inspection, PERRL ENT: positive: ENT inspection nml, Pharynx nml, No signs of dehydration Neck: positive: Nml inspection Respiratory: positive: Chest non-tender, No respiratory distress, Wheezes, Rhonchi. negative: Breath sounds nml, Rales Cardiovascular: positive: No murmur, No gallop, Irregularly irregular (Chronic Atrial Fibrillation) Peripheral Pulses: 2+ Radial (R), 2+ Radial (L) Abdomen: positive: Non-tender, No organomegaly, Nml bowel sounds, No distention. negative: Tenderness Rectal: positive: Non-tender Back: positive: Nml inspection Skin: positive: Color nml, No rash, Warm, Dry Extremities: positive: Non-tender Neurologic/Psychiatric: positive: Oriented x3, CN's nml (2-12) - Lab Results Fish Bones: 08/14/18 05:55 08/14/18 05:55 Other Labs: Lab Results x24hrs 08/14/18 08/14/18 08/14/18 Range/Units 05:55 05:55 05:55 WBC 24.1 H (4.8-10.8) x10^3/uL RBC 3.83 L (4.20-5.40) 10^6/uL Hgb 10.9 L (12.0-16.0) g/dL Hct 33.5 L (37.0-47.0) % MCV 87.5 (81.0-99.0) fL MCH 28.6 (27.0-31.0) pg MCHC 32.7 (32.0-36.0) g/dL RDW 13.5 (12.0-15.0) % Plt Count 162 (130-450) 10^3/uL MPV 8.6 (7.9-10.8) fL Neut # (Auto) Not Reportable (1.5-6.6) 10^3/uL Lymph # (Auto) Not Reportable (1.5-3.5) 10^3/uL Hand # (Auto) Not Reportable (0.0-1.0) 10^3/uL Eos # (Auto) Not Reportable (0.0-0.7) 10^3/uL Baso # (Auto) Not Reportable (0.0-0.1) 10^3/uL Absolute Nucleated RBC Not Reportable x10^3/uL Total Counted 100 Band Neuts % (Manual) 2 (0 - 10) % Abnorm Lymph % (Manual) 0 % Nucleated RBC % Not Reportable /100WBC Neutrophils # (Manual) 21.7 H (1.5-6.6) 10^3/uL Lymphocytes # (Manual) 2.2 (1.5-3.5) 10^3/uL Monocytes # (Manual) 0.2 (0.0-1.0) 10^3/uL Eosinophils # (Manual) 0.0 (0-0.7) 10^3/uL Basophils # (Manual) 0.0 (0-0.1) 10^3/uL Differential Comment MANUAL DIFFERENTIAL Platelet Estimate NORMAL (130-450,000) (NORMAL) RBC Morph Micro Appear NORMAL APPEARANCE (NORMAL) PT 51.5 H (9.9-12.6) secs INR 4.7 H* (0.8-1.2) Sodium 134 L (135-145) mmol/L Potassium 3.0 L (3.5-5.0) mmol/L Chloride 102 (101-111) mmol/L Carbon Dioxide 23 (21-32) mmol/L Anion Gap 9.0 (6-13) BUN 22 H (6-20) mg/dL Creatinine 0.9 (0.4-1.0) mg/dL Estimated GFR (MDRD) 60 L (>89) Glucose 107 H (70-100) mg/dL Lactic Acid (0.5-2.2) mmol/L Calcium 7.8 L (8.5-10.3) mg/dL Magnesium (1.7-2.8) mg/dL Total Bilirubin (0.2-1.0) mg/dL AST (10-42) IU/L ALT (10-60) IU/L Alkaline Phosphatase (42-121) IU/L Total Protein (6.7-8.2) g/dL Albumin (3.2-5.5) g/dL Globulin (2.1-4.2) g/dL Albumin/Globulin Ratio (1.0-2.2) Lipase (22-51) U/L Urine Color Urine Clarity (CLEAR) Urine pH (5.0-7.5) PH Ur Specific Equality (1.002-1.030) Urine Protein (NEGATIVE) mg/dL Urine Glucose (UA) (NEGATIVE) mg/dL Urine Ketones (NEGATIVE) mg/dL Urine Occult Blood (NEGATIVE) Urine Nitrite (NEGATIVE) Urine Bilirubin (NEGATIVE) Urine Urobilinogen (NORMAL) E.U./dL Ur Leukocyte Esterase (NEGATIVE) Urine RBC (0-5) /HPF Urine WBC (0-5) /HPF Ur Squamous Epith Cells (<= Few) Urine Bacteria (None Seen) /HPF Urine Culture Comments 08/13/18 08/13/18 08/13/18 Range/Units 21:23 16:07 16:07 WBC (4.8-10.8) x10^3/uL RBC (4.20-5.40) 10^6/uL Hgb (12.0-16.0) g/dL Hct (37.0-47.0) % MCV (81.0-99.0) fL MCH (27.0-31.0) pg MCHC (32.0-36.0) g/dL RDW (12.0-15.0) % Plt Count (130-450) 10^3/uL MPV (7.9-10.8) fL Neut # (Auto) (1.5-6.6) 10^3/uL Lymph # (Auto) (1.5-3.5) 10^3/uL Hand # (Auto) (0.0-1.0) 10^3/uL Eos # (Auto) (0.0-0.7) 10^3/uL Baso # (Auto) (0.0-0.1) 10^3/uL Absolute Nucleated RBC x10^3/uL Total Counted Band Neuts % (Manual) (0 - 10) % Abnorm Lymph % (Manual) % Nucleated RBC % /100WBC Neutrophils # (Manual) (1.5-6.6) 10^3/uL Lymphocytes # (Manual) (1.5-3.5) 10^3/uL Monocytes # (Manual) (0.0-1.0) 10^3/uL Eosinophils # (Manual) (0-0.7) 10^3/uL Basophils # (Manual) (0-0.1) 10^3/uL Differential Comment Platelet Estimate (NORMAL) RBC Morph Micro Appear (NORMAL) PT 46.6 H (9.9-12.6) secs INR 4.2 H (0.8-1.2) Sodium (135-145) mmol/L Potassium (3.5-5.0) mmol/L Chloride (101-111) mmol/L Carbon Dioxide (21-32) mmol/L Anion Gap (6-13) BUN (6-20) mg/dL Creatinine (0.4-1.0) mg/dL Estimated GFR (MDRD) (>89) Glucose (70-100) mg/dL Lactic Acid (0.5-2.2) mmol/L Calcium (8.5-10.3) mg/dL Magnesium 1.7 (1.7-2.8) mg/dL Total Bilirubin (0.2-1.0) mg/dL AST (10-42) IU/L ALT (10-60) IU/L Alkaline Phosphatase (42-121) IU/L Total Protein (6.7-8.2) g/dL Albumin (3.2-5.5) g/dL Globulin (2.1-4.2) g/dL Albumin/Globulin Ratio (1.0-2.2) Lipase (22-51) U/L Urine Color YELLOW Urine Clarity CLEAR (CLEAR) Urine pH 5.5 (5.0-7.5) PH Ur Specific Equality 1.010 (1.002-1.030) Urine Protein NEGATIVE (NEGATIVE) mg/dL Urine Glucose (UA) NEGATIVE (NEGATIVE) mg/dL Urine Ketones NEGATIVE (NEGATIVE) mg/dL Urine Occult Blood NEGATIVE (NEGATIVE) Urine Nitrite NEGATIVE (NEGATIVE) Urine Bilirubin NEGATIVE (NEGATIVE) Urine Urobilinogen 0.2 (NORMAL) (NORMAL) E.U./dL Ur Leukocyte Esterase SMALL H (NEGATIVE) Urine RBC None Seen (0-5) /HPF Urine WBC >25 H (0-5) /HPF Ur Squamous Epith Cells FEW Squamous (<= Few) Urine Bacteria Few (None Seen) /HPF Urine Culture Comments INDICATED 08/13/18 08/13/18 08/13/18 Range/Units 16:07 16:07 16:07 WBC 19.6 H (4.8-10.8) x10^3/uL RBC 4.44 (4.20-5.40) 10^6/uL Hgb 12.9 (12.0-16.0) g/dL Hct 38.5 (37.0-47.0) % MCV 86.8 (81.0-99.0) fL MCH 29.0 (27.0-31.0) pg MCHC 33.4 (32.0-36.0) g/dL RDW 13.5 (12.0-15.0) % Plt Count 190 (130-450) 10^3/uL MPV 8.6 (7.9-10.8) fL Neut # (Auto) 18.2 H (1.5-6.6) 10^3/uL Lymph # (Auto) 0.8 L (1.5-3.5) 10^3/uL Hand # (Auto) 0.5 (0.0-1.0) 10^3/uL Eos # (Auto) 0.0 (0.0-0.7) 10^3/uL Baso # (Auto) 0.1 (0.0-0.1) 10^3/uL Absolute Nucleated RBC 0.00 x10^3/uL Total Counted Band Neuts % (Manual) (0 - 10) % Abnorm Lymph % (Manual) % Nucleated RBC % 0.0 /100WBC Neutrophils # (Manual) (1.5-6.6) 10^3/uL Lymphocytes # (Manual) (1.5-3.5) 10^3/uL Monocytes # (Manual) (0.0-1.0) 10^3/uL Eosinophils # (Manual) (0-0.7) 10^3/uL Basophils # (Manual) (0-0.1) 10^3/uL Differential Comment Platelet Estimate (NORMAL) RBC Morph Micro Appear (NORMAL) PT (9.9-12.6) secs INR (0.8-1.2) Sodium 134 L (135-145) mmol/L Potassium 3.1 L (3.5-5.0) mmol/L Chloride 99 L (101-111) mmol/L Carbon Dioxide 22 (21-32) mmol/L Anion Gap 13.0 (6-13) BUN 27 H (6-20) mg/dL Creatinine 0.9 (0.4-1.0) mg/dL Estimated GFR (MDRD) 60 L (>89) Glucose 128 H (70-100) mg/dL Lactic Acid 1.8 (0.5-2.2) mmol/L Calcium 9.2 (8.5-10.3) mg/dL Magnesium (1.7-2.8) mg/dL Total Bilirubin 0.8 (0.2-1.0) mg/dL AST 27 (10-42) IU/L ALT 18 (10-60) IU/L Alkaline Phosphatase 75 (42-121) IU/L Total Protein 7.5 (6.7-8.2) g/dL Albumin 3.8 (3.2-5.5) g/dL Globulin 3.7 (2.1-4.2) g/dL Albumin/Globulin Ratio 1.0 (1.0-2.2) Lipase 22 (22-51) U/L Urine Color Urine Clarity (CLEAR) Urine pH (5.0-7.5) PH Ur Specific Equality (1.002-1.030) Urine Protein (NEGATIVE) mg/dL Urine Glucose (UA) (NEGATIVE) mg/dL Urine Ketones (NEGATIVE) mg/dL Urine Occult Blood (NEGATIVE) Urine Nitrite (NEGATIVE) Urine Bilirubin (NEGATIVE) Urine Urobilinogen (NORMAL) E.U./dL Ur Leukocyte Esterase (NEGATIVE) Urine RBC (0-5) /HPF Urine WBC (0-5) /HPF Ur Squamous Epith Cells (<= Few) Urine Bacteria (None Seen) /HPF Urine Culture Comments - Diagnostic Imaging Diagnostic Imaging Results: positive: Final report reviewed ABX Reporting Has patient been on IV antibiotics over the past 48 hours?: Yes Assessment/Plan - Problem List (1) Acute respiratory failure with hypoxia Impression: Due to pneumonia and COPD, patient presented from PCP following 80% oxygen saturation. Pt does not require oxygen at home. Plan: 2 L oxygen via NC IV abx with rocephin and aztreonam due to allergies to Levaquin and Macrolides Monitor vitals (2) Pneumonia Impression: chest x-ray reveals retrocardia infiltrate for corresponding pneumonia Plan: IV abx with rocephin and aztreonam IVF 2L oxygen via NC Qualifiers: Pneumonia type: due to unspecified organism Laterality: bilateral Lung location: lower lobe of lung Qualified Code(s): J18.1 - Lobar pneumonia, unspecified organism (3) Hypertension Impression: Chronic essential hypertension Plan: Monitor vitals Will resume home medication Qualifiers: Hypertension type: essential hypertension Qualified Code(s): I10 - Essential (primary) hypertension (4) COPD (chronic obstructive pulmonary disease) Impression: Former smoker and chronic COPD. Uses nebulizers. Patient does not require home oxygenation. Pt presented with hypoxia and pneumonia. Plan: Breathing treatments providing aerosolized steroids Monitor vitals Qualifiers: COPD type: COPD with acute lower respiratory infection Qualified Code(s): J44.0 - Chronic obstructive pulmonary disease with acute lower respiratory infection (5) Atrial fibrillation Impression: Chronic rate controlled atrial fibrillation. On presentation, HR was in 120s. HR is now controlled with no palpilations, dizziness, chest pain. Plan: Heart rate controlled with home medication Continue home medication Qualifiers: Atrial fibrillation type: paroxysmal Qualified Code(s): I48.0 - Paroxysmal atrial fibrillation (6) Hypokalemia Impression: supplement with IV and will switch to po supplement.
[2018-08-14] MEDS: cefTRIAXone 2 GM in SODIUM CHLORIDE 0.9% MINIBAG 100 ML IV SCH (18:00)
[2018-08-14] MEDS: ALBUTEROL NEB 2.5 MG/3 ML INH PRN (19:29)
[2018-08-14] MEDS: SODIUM CHLORIDE FLUSH 0.9% 10 ML SYRINGE IVP PRN (19:35)
[2018-08-14] MEDS: ATORVASTATIN 10 MG TABLET PO SCH (20:33)
[2018-08-14] MEDS: guaiFENesin 600 MG TABLET PO SCH (20:33)
[2018-08-14] MEDS: NIFEdipine ER 30 MG TABLET PO SCH (20:33)
[2018-08-15] MEDS: AZTREONAM 2 GM in SODIUM CHLORIDE 0.9% MINIBAG 100 ML IV SCH ×4 (00:51→17:30)
[2018-08-15] MEDS: SODIUM CHLORIDE FLUSH 0.9% 10 ML SYRINGE IVP SCH ×3 (00:57→19:33)
[2018-08-15] MEDS: SODIUM CHLORIDE FLUSH 0.9% 10 ML SYRINGE IVP PRN ×2 (01:56→19:32)
[2018-08-15 05:06] LABS: BASOPHILS % (AUTO) 0.3 %; EOSINOPHILS # (AUTO) 0.2 10^3/uL (0.0-0.7); EOSINOPHILS % (AUTO) 1.1 %; HGB - HEMOGLOBIN 10.8 g/dL (12.0-16.0); LYMPHOCYTES # (AUTO) 0.9 10^3/uL (1.5-3.5); LYMPHOCYTES % (AUTO) 6.2 %; MEAN CORPUSCULAR HEMOGLOBIN 28.4 pg (27.0-31.0); MEAN CORPUSCULAR HGB CONC 32.3 g/dL (32.0-36.0); MEAN CORPUSCULAR VOLUME 88.1 fL (81.0-99.0); MONOCYTES # (AUTO) 0.7 10^3/uL (0.0-1.0); MONOCYTES % (AUTO) 4.7 %; NEUTROPHILS # (AUTO) 12.7 10^3/uL (1.5-6.6); NEUTROPHILS % (AUTO) 87.7 %; PLT - PLATELET COUNT 147 10^3/uL (130-450); RED BLOOD COUNT 3.79 10^6/uL (4.20-5.40); RED CELL DISTRIBUTION WIDTH 13.6 % (12.0-15.0); WHITE BLOOD COUNT 14.5 x10^3/uL (4.8-10.8)
[2018-08-15 05:08] LABS: INR 3.3 (0.8-1.2); PT - PROTHROMBIN TIME 36.7 secs (9.9-12.6)
[2018-08-15 05:29] LABS: CALCIUM 8.4 mg/dL (8.5-10.3); CREATININE 0.7 mg/dL (0.4-1.0)
[2018-08-15] MEDS: POTASSIUM CHLORIDE 20 MEQ TABLET PO SCH ×2 (06:41→14:47)
[2018-08-15] MEDS: BUDESONIDE 0.5 MG/2 ML NEB INH SCH ×2 (07:10→19:44)
[2018-08-15] MEDS: FORMOTEROL FUMARATE NEB 20 MCG/2 ML INH SCH ×2 (07:10→19:44)
[2018-08-15] MEDS: guaiFENesin 600 MG TABLET PO SCH ×2 (08:54→21:02)
[2018-08-15] MEDS: ASPIRIN CHEW 81 MG TABLET PO SCH (08:54)
[2018-08-15] MEDS: SACCHAROMYCES BOULARDII 250 MG CAPSULE PO SCH ×2 (08:54→16:10)
[2018-08-15] MEDS: METOPROLOL TARTRATE 25 MG TABLET PO SCH ×2 (08:55→20:52)
[2018-08-15] MEDS: POLYETHYLENE GLYCOL 3350 17 GM PACKET PO SCH (08:55)
[2018-08-15] MEDS: TRIAMT/HCTZ 37.5 MG/25 MG CAPSULE PO SCH (08:56)
--- NOTE | 2018-08-15 10:52 | PROVIDER PROGRESS NOTE ---
Subjective - Prog Note Date Prog Note Date: 08/15/18 Prog Note Time: 07:30 - Subjective Pt reports feeling: Improved Subjective: 83 yo female with PMH of chronic atrial fibrillation, psoriasis, hypertension, hyperlipidemia, COPD is inpatient day 3 following presentation to the ED with cough of 5-6 weeks and dysuria x 3-4 weeks. Pt states she had an episode of palpitations last night similar to her past runs of atrial fibrillation that lasted about 10 minutes. Patient states she continues to have a productive cough. Pt denies flank pain and dysuria. Pt has been ambulating without assistance. Pt denies any nausea, vomiting, chest pain, abdominal pain, headache, blurry vision, hematuria, change in urinary frequency. Pt is t olerating PO foods. Discussed with patient the importance of home oxygen since she does not have home O2 and will require outpatient oxygenation. She understands and agrees to plan. Current Medications - Current Medications Current Medications: Current Medications Generic Name Dose Route Start Last Admin Trade Name Freq PRN Reason Stop Dose Admin Albuterol 2.5 mg 08/13/18 16:36 08/14/18 19:29 INH 2.5 mg Q4HR PRN Administration Wheezing Alprazolam 0.25 mg 08/14/18 21:00 08/14/18 20:43 Xanax PO 0.25 mg QPM ANDREZ Administration Aspirin 81 mg 08/14/18 09:00 08/15/18 08:54 [facility] Aspirin PO 81 mg DAILY ANDREZ Administration Atorvastatin Calcium 10 mg 08/13/18 21:00 08/14/18 20:33 Lipitor PO 10 mg QPM ANDREZ Administration Budesonide 0.5 mg 08/14/18 07:00 08/15/18 07:10 Pulmicort INH 0.5 mg RTBID ANDREZ Administration Cetirizine HCl 10 mg 08/14/18 09:00 08/14/18 09:35 Zyrtec PO Not Given DAILY ANDREZ Formoterol Fumarate 20 mcg 08/14/18 07:00 08/15/18 07:10 Perforomist INH 20 mcg RTBID ANDREZ Administration Guaifenesin 600 mg 08/14/18 21:00 08/15/18 08:54 Mucinex PO 600 mg BID ANDREZ Administration Aztreonam 2 gm/ Sodium 100 mls @ 100 mls/hr 08/13/18 18:00 08/15/18 08:38 Chloride IV Infused Q6HR ANDREZ Infusion Ceftriaxone Sodium 2 gm/ 100 mls @ 200 mls/hr 08/14/18 16:00 08/14/18 18:30 Sodium Chloride IV Infused Q24H ANDREZ Infusion Metoprolol Tartrate 25 mg 08/13/18 21:00 08/15/18 08:55 Lopressor PO 25 mg BID ANDREZ Administration Nifedipine 15 mg 08/14/18 21:00 08/14/18 20:33 Procardia Xl PO 15 mg QPM ANDREZ Administration Polyethylene Glycol 17 gm 08/14/18 09:00 08/15/18 08:55 Miralax PO Not Given DAILY ANDREZ Potassium Chloride 20 meq 08/14/18 22:00 08/15/18 06:41 K-Dur PO 08/15/18 14:01 20 meq TID ANDREZ Administration Ranitidine HCl 150 mg 08/14/18 09:00 08/14/18 09:35 Zantac PO Not Given DAILY ANDREZ Saccharomyces Boulardii 250 mg 08/13/18 17:00 08/15/18 08:54 Florastor PO 250 mg BIDWM ANDREZ Administration Sodium Chloride 10 ml 08/13/18 16:34 08/15/18 01:56 Normal Saline Flush 0.9% IVP 10 ml PRN PRN Administration NEEDED PER PROVIDER ORDERS Sodium Chloride 10 ml 08/13/18 17:00 08/15/18 08:55 Normal Saline Flush 0.9% IVP 10 ml 0100,0900,1700 ANDREZ Administration Triamterene/HCTZ 1 cap 08/14/18 09:00 08/15/18 08:56 Dyazide PO 1 cap DAILY ANDREZ Administration Objective - Vital Signs/Intake & Output Reviewed Vital Signs: Yes Vital Signs: Vital Signs x48h Temp Pulse Pulse Resp BP Pulse Ox 08/15/18 07:23 36.9 C 101 H 16 107/58 L 92 08/15/18 07:13 88 18 Intake & Output: Intake & Output 08/12/18 08/13/18 08/14/18 08/15/18 23:59 23:59 23:59 23:59 Intake Total 1500 3900.000 400 Output Total 150 2350 1000 Balance 1350 1550.000 -600 - Objective General Appearance: positive: No acute distress, Alert Eyes Bilateral: positive: Normal inspection, PERRL ENT: positive: No signs of dehydration. negative: Purulent nasal drainage, Pharyngeal erythema Neck: positive: Nml inspection Respiratory: positive: Chest non-tender, Wheezes, Rhonchi, Other (still sig zaragoza with just walking 10 feet to the bathroom. She usually has no limit to endurance and doesn't use O2 at home.). negative: Rales Cardiovascular: positive: No gallop, Irregularly irregular. negative: Tachycardia Peripheral Pulses: 2+ Radial (R), 2+ Radial (L) Abdomen: positive: Non-tender, No organomegaly, Nml bowel sounds, No distention. negative: Tenderness Back: positive: Nml inspection Skin: positive: Color nml, No rash, Warm, Dry Extremities: positive: Non-tender, Full ROM, Nml appearance, No pedal edema Neurologic/Psychiatric: positive: Oriented x3, Mood/affect nml - Lab Results Fish Bones: 08/15/18 04:45 08/15/18 04:45 Other Labs: Lab Results x24hrs 08/15/18 08/15/18 08/15/18 Range/Units 04:45 04:45 04:45 WBC 14.5 H (4.8-10.8) x10^3/uL RBC 3.79 L (4.20-5.40) 10^6/uL Hgb 10.8 L (12.0-16.0) g/dL Hct 33.4 L (37.0-47.0) % MCV 88.1 (81.0-99.0) fL MCH 28.4 (27.0-31.0) pg MCHC 32.3 (32.0-36.0) g/dL RDW 13.6 (12.0-15.0) % Plt Count 147 (130-450) 10^3/uL MPV 9.0 (7.9-10.8) fL Neut # (Auto) 12.7 H (1.5-6.6) 10^3/uL Lymph # (Auto) 0.9 L (1.5-3.5) 10^3/uL Randall # (Auto) 0.7 (0.0-1.0) 10^3/uL Eos # (Auto) 0.2 (0.0-0.7) 10^3/uL Baso # (Auto) 0.0 (0.0-0.1) 10^3/uL Absolute Nucleated RBC 0.00 x10^3/uL Nucleated RBC % 0.0 /100WBC PT 36.7 H (9.9-12.6) secs INR 3.3 H (0.8-1.2) Sodium 133 L (135-145) mmol/L Potassium 4.0 (3.5-5.0) mmol/L Chloride 104 (101-111) mmol/L Carbon Dioxide 22 (21-32) mmol/L Anion Gap 7.0 (6-13) BUN 15 (6-20) mg/dL Creatinine 0.7 (0.4-1.0) mg/dL Estimated GFR (MDRD) 80 L (>89) Glucose 98 (70-100) mg/dL Calcium 8.4 L (8.5-10.3) mg/dL ABX Reporting Has patient been on IV antibiotics over the past 48 hours?: Yes Assessment/Plan - Problem List (1) Acute respiratory failure with hypoxia Impression: Patient remains at 3L of oxygen via NC. Patient 92% oxygen saturation. Patient continues to have productive cough from pneumonia. Plan: Monitor oxygen saturation, will require home oxygen IV abx ceftriaxone and aztreoname due to allergy, Day #2 (2) Pneumonia Impression: Pneumonia suspected with hypoxia and chest x-ray showing infiltrates. Productive cough remains with NC of 3L at 92%. WBC trending downward. Plan: Continue IV abx ceftriaxone and aztreonam Day #2. Monitor vitals and oxygen saturation Blood cultures were negative after 2 days. However her respiratory culture has grown out Pseudomonas. Urine culture has polymicrobial growth. The sensitivities of the Pseudomonas are still pending. No change in antibiotics until the sensitivities are known Qualifiers: Pneumonia type: due to Pseudomonas Laterality: bilateral Lung location: lower lobe of lung Qualified Code(s): J15.1 - Pneumonia due to Pseudomonas (3) Hypertension Impression: Chronic HTN. Plan: Monitor vitals. Blood pressure has been 107-131/51-61 continue home medication Qualifiers: Hypertension type: essential hypertension Qualified Code(s): I10 - Essential (primary) hypertension (4) COPD (chronic obstructive pulmonary disease) Impression: Chronic issue. Patient receiving aerosolized steroids and LABA via breathing treatments. Plan: Maintain oxygen saturation >92% Breathing treatments with steriods Qualifiers: COPD type: COPD with acute lower respiratory infection Qualified Code(s): J44.0 - Chronic obstructive pulmonary disease with acute lower respiratory infection (5) Atrial fibrillation Impression: Chronic atrial fibrillation. One episode of increased rate via atrial fibrillation noted from patient exacerbated by pneumonia. Patient heart rate controlled and currently metoprolol. Monitoring INR level with decreased to 3.3 today. Plan: Continue to hold aspirin due to elevated INR. Continue monitor vitals Continue rate control medications and is NOT on coumadin. We have been holding it for prolonged INR. Continue to hold until <3.0. Qualifiers: Atrial fibrillation type: paroxysmal Qualified Code(s): I48.0 - Paroxysmal atrial fibrillation (6) Hypokalemia Impression: Potassium level increased to 4.0 through potassium IV and PO. Plan: Monitor via BMP Provide PO potassium based on level.
[2018-08-15] MEDS: cefTRIAXone 2 GM in SODIUM CHLORIDE 0.9% MINIBAG 100 ML IV SCH (16:10)
[2018-08-15] MEDS: ALPRAZolam 0.25 MG TABLET PO SCH (21:01)
[2018-08-15] MEDS: ATORVASTATIN 10 MG TABLET PO SCH (21:01)
[2018-08-15] MEDS: NIFEdipine ER 30 MG TABLET PO SCH (21:02)
[2018-08-16] MEDS: AZTREONAM 2 GM in SODIUM CHLORIDE 0.9% MINIBAG 100 ML IV SCH ×4 (01:34→17:27)
[2018-08-16] MEDS: SODIUM CHLORIDE FLUSH 0.9% 10 ML SYRINGE IVP SCH ×3 (01:34→17:27)
[2018-08-16] MEDS: SODIUM CHLORIDE FLUSH 0.9% 10 ML SYRINGE IVP PRN (02:36)
[2018-08-16 06:09] LABS: BASOPHILS # (AUTO) 0.1 10^3/uL (0.0-0.1); BASOPHILS % (AUTO) 0.9 %; EOSINOPHILS # (AUTO) 0.3 10^3/uL (0.0-0.7); EOSINOPHILS % (AUTO) 3.4 %; HGB - HEMOGLOBIN 11.9 g/dL (12.0-16.0); LYMPHOCYTES % (AUTO) 10.1 %; MEAN CORPUSCULAR HEMOGLOBIN 29.1 pg (27.0-31.0); MEAN CORPUSCULAR HGB CONC 33.4 g/dL (32.0-36.0); MEAN PLATELET VOLUME 8.9 fL (7.9-10.8); MONOCYTES # (AUTO) 0.6 10^3/uL (0.0-1.0); MONOCYTES % (AUTO) 5.6 %; PLT - PLATELET COUNT 180 10^3/uL (130-450); RED CELL DISTRIBUTION WIDTH 13.5 % (12.0-15.0)
[2018-08-16 06:22] LABS: CALCIUM 8.6 mg/dL (8.5-10.3); CREATININE 0.6 mg/dL (0.4-1.0)
[2018-08-16 06:26] LABS: INR 1.9 (0.8-1.2); PT - PROTHROMBIN TIME 21.8 secs (9.9-12.6)
[2018-08-16] MEDS: FORMOTEROL FUMARATE NEB 20 MCG/2 ML INH SCH ×2 (07:45→20:17)
[2018-08-16] MEDS: BUDESONIDE 0.5 MG/2 ML NEB INH SCH ×2 (07:45→20:17)
--- NOTE | 2018-08-16 08:21 | PROVIDER PROGRESS NOTE ---
Subjective - Prog Note Date Prog Note Date: 08/16/18 Prog Note Time: 07:15 - Subjective Pt reports feeling: Improved Subjective: 83 yo female with PMH of chronic atrial fibrillation, psoriasis, hypertension, hyperlipidemia, COPD is inpatient day 4 following presentation to the ED with cough of 5-6 weeks and dysuria x 3-4 weeks. Pt continues to have productive cough. She denies shortness of breath, palpitations, chest pain, flank pain, abdominal pain, dysuria, nausea, vomiting, blurry vision, headache, hematuria, change in urinary frequnency. Pt is tolerating PO foods and has normal bowel movements. Pt is on 2L of oxygen in the hospital. Pt states she feels improved since her admission. Discussed with patient culture finding of pseudomonas and the importance of medical compliance in the outpatient. RT road tested with the PT dropping to 86% on room air during ambulation. Discussed with patient the resistance of her pseudomonas culture and allergy - she refused to take Levoquin resulting in no available PO antibiotics. Patient agreed to stay to continue receiving IV aztreonam. Current Medications - Current Medications Current Medications: Current Medications Generic Name Dose Route Start Last Admin Trade Name Freq PRN Reason Stop Dose Admin Albuterol 2.5 mg 08/13/18 16:36 08/14/18 19:29 INH 2.5 mg Q4HR PRN Administration Wheezing Alprazolam 0.25 mg 08/14/18 21:00 08/15/18 21:01 Xanax PO 0.25 mg QPM ANDREZ Administration Aspirin 81 mg 08/14/18 09:00 08/15/18 08:54 [facility] Aspirin PO 81 mg DAILY ANDREZ Administration Atorvastatin Calcium 10 mg 08/13/18 21:00 08/15/18 21:01 Lipitor PO 10 mg QPM ANDREZ Administration Budesonide 0.5 mg 08/14/18 07:00 08/16/18 07:45 Pulmicort INH 0.5 mg RTBID ANDREZ Administration Cetirizine HCl 10 mg 08/14/18 09:00 08/14/18 09:35 Zyrtec PO Not Given DAILY ANDREZ Formoterol Fumarate 20 mcg 08/14/18 07:00 08/16/18 07:45 Perforomist INH 20 mcg RTBID ANDREZ Administration Guaifenesin 600 mg 08/14/18 21:00 08/15/18 21:02 Mucinex PO 600 mg BID ANDREZ Administration Aztreonam 2 gm/ Sodium 100 mls @ 100 mls/hr 08/13/18 18:00 08/16/18 06:46 Chloride IV Infused Q6HR ANDREZ Infusion Ceftriaxone Sodium 2 gm/ 100 mls @ 200 mls/hr 08/14/18 16:00 08/15/18 16:40 Sodium Chloride IV Infused Q24H ANDREZ Infusion Metoprolol Tartrate 25 mg 08/13/18 21:00 08/15/18 20:52 Lopressor PO 25 mg BID ANDREZ Administration Nifedipine 15 mg 08/14/18 21:00 08/15/18 21:02 Procardia Xl PO 15 mg QPM ANDREZ Administration Polyethylene Glycol 17 gm 08/14/18 09:00 08/15/18 08:55 Miralax PO Not Given DAILY ANDREZ Ranitidine HCl 150 mg 08/14/18 09:00 08/14/18 09:35 Zantac PO Not Given DAILY ANDREZ Saccharomyces Boulardii 250 mg 08/13/18 17:00 08/15/18 16:10 Florastor PO Not Given BIDWM ANDREZ Sodium Chloride 10 ml 08/13/18 16:34 08/16/18 02:36 Normal Saline Flush 0.9% IVP 10 ml PRN PRN Administration NEEDED PER PROVIDER ORDERS Sodium Chloride 10 ml 08/13/18 17:00 08/16/18 01:34 Normal Saline Flush 0.9% IVP 10 ml 0100,0900,1700 ANDREZ Administration Triamterene/HCTZ 1 cap 08/14/18 09:00 08/15/18 08:56 Dyazide PO 1 cap DAILY ANDREZ Administration Objective - Vital Signs/Intake & Output Reviewed Vital Signs: Yes Vital Signs: Vital Signs x48h Pulse Resp 08/16/18 07:45 96 16 Intake & Output: Intake & Output 08/13/18 08/14/18 08/15/18 08/16/18 23:59 23:59 23:59 23:59 Intake Total 1500 3900.000 1286 300 Output Total 150 2350 2650 200 Balance 1350 1550.000 -1364 100 - Objective General Appearance: positive: No acute distress, Alert Eyes Bilateral: positive: Normal inspection, PERRL ENT: positive: ENT inspection nml, Pharynx nml, No signs of dehydration Neck: positive: Nml inspection Respiratory: positive: Chest non-tender, No respiratory distress, Wheezes. negative: Rales, Rhonchi Cardiovascular: positive: No murmur, No gallop, Irregularly irregular Peripheral Pulses: 2+ Radial (R), 2+ Radial (L) Abdomen: positive: Non-tender, No organomegaly, Nml bowel sounds, No distention Rectal: negative: Bloody stool Back: positive: Nml inspection Skin: positive: Color nml, No rash, Warm, Dry Extremities: positive: Non-tender, Full ROM, Nml appearance, No pedal edema Neurologic/Psychiatric: positive: Oriented x3, Mood/affect nml - Lab Results Fish Bones: 08/16/18 05:45 08/16/18 05:45 Other Labs: Lab Results x24hrs 08/16/18 08/16/18 08/16/18 Range/Units 05:45 05:45 05:45 WBC 10.0 (4.8-10.8) x10^3/uL RBC 4.10 L (4.20-5.40) 10^6/uL Hgb 11.9 L (12.0-16.0) g/dL Hct 35.7 L (37.0-47.0) % MCV 87.0 (81.0-99.0) fL MCH 29.1 (27.0-31.0) pg MCHC 33.4 (32.0-36.0) g/dL RDW 13.5 (12.0-15.0) % Plt Count 180 (130-450) 10^3/uL MPV 8.9 (7.9-10.8) fL Neut # (Auto) 8.0 H (1.5-6.6) 10^3/uL Lymph # (Auto) 1.0 L (1.5-3.5) 10^3/uL [place] # (Auto) 0.6 (0.0-1.0) 10^3/uL Eos # (Auto) 0.3 (0.0-0.7) 10^3/uL Baso # (Auto) 0.1 (0.0-0.1) 10^3/uL Absolute Nucleated RBC 0.01 x10^3/uL Nucleated RBC % 0.1 /100WBC PT 21.8 H (9.9-12.6) secs INR 1.9 H (0.8-1.2) Sodium 133 L (135-145) mmol/L Potassium 3.6 (3.5-5.0) mmol/L Chloride 102 (101-111) mmol/L Carbon Dioxide 24 (21-32) mmol/L Anion Gap 7.0 (6-13) BUN 15 (6-20) mg/dL Creatinine 0.6 (0.4-1.0) mg/dL Estimated GFR (MDRD) 95 (>89) Glucose 104 H (70-100) mg/dL Calcium 8.6 (8.5-10.3) mg/dL ABX Reporting Has patient been on IV antibiotics over the past 48 hours?: Yes Assessment/Plan - Problem List (1) Acute respiratory failure with hypoxia Impression: Patient remains at 1L of oxygen via NC. Patient 95% oxygen saturation. Patient continues to have productive cough from pneumonia from pseudomonas positive culture. Patient road tested by RT and found Will to be 94% on room air at rest. With 50 feet of ambulation she drops to 86% on room air. She needs 1 L to bring her up to 93% at rest and 91% with exertion. Pt will need home oxygenation with RT suggesting 1L. Patient refused to Levoquin, agrees to continue IV aztreonam inpatient. Plan: Monitor oxygen saturation, will require 1L home oxygen I thought I was going to be sending her home today. But the issue of her Pseudomonas that is resistant requires her to stay in the hospital IV abx aztreonam due to allergy, Day #4. (2) Pneumonia Impression: Pneumonia suspected with hypoxia and chest x-ray showing infiltrates. Productive cough remains with NC of 2L at 92%. WBC trending downward, today at 10.0. Sputum culture positive for pseudomonas - aztreonam covers. Sensitivities to Cefepime, Cipro, Gentamicin, Imipenem, LEvo, Pipercillin, Tobramycin. Patient allergic to Levoquin and Ciprofloxacin and refuses to take this PO medication. Agrees to continue inpatient stay to receive IV aztreonam as all other sensitive abx are IV. I was able to speak to [facility], infectious disease consult, and they recommend changing her to cefepime for better coverage for the Pseudomonas. But unfortunately she willing to get IV antibiotics since none of her oral antibiotics can be tolerated or taken. A total of 5 days to 6 days is recommended. As such the patient could probably leave by August 18. Plan: s/p IV abx aztreonam Day #4 covering for pseudomonas. Change to Cefipime per ID recommendation. Monitor vitals and oxygen saturation Blood cultures were negative after 2 days. However her respiratory culture has grown out Pseudomonas. Urine culture has polymicrobial growth. Sensitivities noted above. Qualifiers: Pneumonia type: due to Pseudomonas Laterality: bilateral Lung location: lower lobe of lung Qualified Code(s): J15.1 - Pneumonia due to Pseudomonas (3) Hypertension Impression: Chronic HTN. Plan: Monitor vitals. Blood pressure has been 107-161/51-89 continue home medication Qualifiers: Hypertension type: essential hypertension Qualified Code(s): I10 - Essential (primary) hypertension (4) COPD (chronic obstructive pulmonary disease) Impression: Chronic issue. Patient receiving aerosolized steroids and LABA via breathing treatments. Plan: Maintain oxygen saturation >92% Breathing treatments with steriods Qualifiers: COPD type: COPD with acute lower respiratory infection Qualified Code(s): J44.0 - Chronic obstructive pulmonary disease with acute lower respiratory infection (5) Atrial fibrillation Impression: Chronic atrial fibrillation. One episode of increased rate via atrial fibrillation noted from patient exacerbated by pneumonia. Patient heart rate controlled and currently metoprolol. Monitoring INR level with decreased to 1.9 today. Plan: Aspirin resumed. Continue monitor vitals Held Coumadin due to elevated INR >3, will continue coumadin. Qualifiers: Atrial fibrillation type: paroxysmal Qualified Code(s): I48.0 - Paroxysmal atrial fibrillation (6) Hypokalemia Impression: Potassium at 3.6, down from 4.0 yesterday. Plan: Continue to monitor PO potassium if drops < 3.5
[2018-08-16] MEDS: ASPIRIN CHEW 81 MG TABLET PO SCH (08:46)
[2018-08-16] MEDS: POLYETHYLENE GLYCOL 3350 17 GM PACKET PO SCH (08:46)
[2018-08-16] MEDS: guaiFENesin 600 MG TABLET PO SCH ×2 (08:46→20:27)
[2018-08-16] MEDS: TRIAMT/HCTZ 37.5 MG/25 MG CAPSULE PO SCH (08:46)
[2018-08-16] MEDS: SACCHAROMYCES BOULARDII 250 MG CAPSULE PO SCH ×2 (08:46→17:27)
[2018-08-16] MEDS: METOPROLOL TARTRATE 25 MG TABLET PO SCH ×2 (08:46→20:26)
[2018-08-16] MEDS ORDERED: WARFARIN 5 MG TABLET PO SCH (14:00)
--- NOTE | 2018-08-16 15:56 | Discharge Plan ---
Discharge Plan Disposition: 01 Home, Self Care Condition: Stable Prescriptions: Sulfamethoxazole/Trimethoprim [Bactrim 400-80 mg Tablet] 1 each PO BID #10 tablet Diet: Regular Activity Restrictions: Activity as Tolerated Shower Restrictions: No Driving Restrictions: No Additional Instructions or Follow Up instructions: You were admitted to the hospital after being sent to the emergency room by Dr. Haider because of a low oxygen. We found you to have a pneumonia and exacerbation of lung disease with severe wheezing. We also found that you had 2 bacteria, Pseudomonas and Enterobacter, growing in your phlegm. Unfortunately you are allergic to the drugs that we would use to treat those and had to substitute less effective medication to treat you. The other problem with that was that they could not be changed to pills so that you could go home. You ended up staying with us for 6 days. The Enterobacter grew out later in your stay. You can go home on Bactrim to finish the treatment for that. Please see Dr. Haider in follow-up this week. You already have an appointment. Finish your antibiotic. There will be no other changes in your medication at this time. No Smoking: If you smoke, Please STOP! Call for help. Follow-up with: Leisa Haider MD [Primary Care Provider] -
[2018-08-16] MEDS: NIFEdipine ER 30 MG TABLET PO SCH (20:26)
[2018-08-16] MEDS: ATORVASTATIN 10 MG TABLET PO SCH (20:26)
[2018-08-16] MEDS: ALPRAZolam 0.25 MG TABLET PO SCH (20:26)
[2018-08-16] MEDS ORDERED: CEFEPIME 2 GM in SODIUM CHLORIDE 0.9% MINIBAG 100 ML IV SCH (21:00)
[2018-08-17] MEDS: AZTREONAM 2 GM in SODIUM CHLORIDE 0.9% MINIBAG 100 ML IV SCH ×4 (00:19→17:02)
[2018-08-17] MEDS: SODIUM CHLORIDE FLUSH 0.9% 10 ML SYRINGE IVP SCH ×5 (00:28→23:59)
[2018-08-17] MEDS: SODIUM CHLORIDE FLUSH 0.9% 10 ML SYRINGE IVP PRN ×2 (06:40→11:51)
[2018-08-17] MEDS: BUDESONIDE 0.5 MG/2 ML NEB INH SCH ×2 (07:14→19:33)
[2018-08-17] MEDS: FORMOTEROL FUMARATE NEB 20 MCG/2 ML INH SCH ×2 (07:14→19:33)
[2018-08-17] MEDS: ASPIRIN CHEW 81 MG TABLET PO SCH (08:53)
[2018-08-17] MEDS: SACCHAROMYCES BOULARDII 250 MG CAPSULE PO SCH ×2 (08:53→17:02)
[2018-08-17] MEDS: TRIAMT/HCTZ 37.5 MG/25 MG CAPSULE PO SCH ×2 (08:54→08:55)
[2018-08-17] MEDS: guaiFENesin 600 MG TABLET PO SCH ×2 (08:54→20:19)
[2018-08-17] MEDS: METOPROLOL TARTRATE 25 MG TABLET PO SCH ×2 (08:55→20:19)
--- NOTE | 2018-08-17 10:11 | PROVIDER PROGRESS NOTE ---
Subjective - Prog Note Date Prog Note Date: 08/17/18 Prog Note Time: 07:30 - Subjective Pt reports feeling: Improved Subjective: 83 yo female with PMH of chronic atrial fibrillation, psoriasis, hypertension, hyperlipidemia, COPD is inpatient day 4 following presentation to the ED with cough of 5-6 weeks and dysuria x 3-4 weeks. Pt sputum culture reveals pseudomonas and enterobacter. Due to allergies and sensitivities, patient was unable to be discharged on PO medications due to IV abx requirements. Infectious Disease was consulted and suggested IV Cefepime instead of IV aztreonam. Pt switched to IV Cefepime. Pseudomonas and enterobacter sensitive to IV Cefepime. Pt continues to have productive cough. She denies shortness of breath, palpitations, chest pain, flank pain, abdominal pain, dysuria, nausea, vomiting, blurry vision, headache, hematuria, change in urinary frequnency. Pt is tolerating PO foods and has normal bowel movements. Pt is on 1.5L of oxygen in the hospital. with saturation at 95%. Pt agrees with current treatment plan. Current Medications - Current Medications Current Medications: Current Medications Generic Name Dose Route Start Last Admin Trade Name Freq PRN Reason Stop Dose Admin Albuterol 2.5 mg 08/13/18 16:36 08/14/18 19:29 INH 2.5 mg Q4HR PRN Administration Wheezing Alprazolam 0.25 mg 08/14/18 21:00 08/16/18 20:26 Xanax PO 0.25 mg QPM ANDREZ Administration Aspirin 81 mg 08/14/18 09:00 08/17/18 08:53 [facility] Aspirin PO 81 mg DAILY ANDREZ Administration Atorvastatin Calcium 10 mg 08/13/18 21:00 08/16/18 20:26 Lipitor PO 10 mg QPM ANDREZ Administration Budesonide 0.5 mg 08/14/18 07:00 08/17/18 07:14 Pulmicort INH 0.5 mg RTBID ANDREZ Administration Cetirizine HCl 10 mg 08/14/18 09:00 08/14/18 09:35 Zyrtec PO Not Given DAILY ANDREZ Formoterol Fumarate 20 mcg 08/14/18 07:00 08/17/18 07:14 Perforomist INH 20 mcg RTBID ANDREZ Administration Guaifenesin 600 mg 08/14/18 21:00 08/17/18 08:54 Mucinex PO 600 mg BID ANDREZ Administration Aztreonam 2 gm/ Sodium 100 mls @ 100 mls/hr 08/13/18 18:00 08/17/18 06:40 Chloride IV 100 mls/hr Q6HR ANDREZ Administration Cefepime HCl 2 gm/ Sodium 100 mls @ 200 mls/hr 08/16/18 21:00 08/16/18 21:41 Chloride IV Infused Q24H ANDREZ Infusion Metoprolol Tartrate 25 mg 08/13/18 21:00 08/17/18 08:55 Lopressor PO 25 mg BID ANDREZ Administration Nifedipine 15 mg 08/14/18 21:00 08/16/18 20:26 Procardia Xl PO 15 mg QPM ANDREZ Administration Polyethylene Glycol 17 gm 08/14/18 09:00 08/16/18 08:46 Miralax PO Not Given DAILY ANDREZ Ranitidine HCl 150 mg 08/14/18 09:00 08/14/18 09:35 Zantac PO Not Given DAILY ANDREZ Saccharomyces Boulardii 250 mg 08/13/18 17:00 08/17/18 08:53 Florastor PO 250 mg BIDWM ANDREZ Administration Sodium Chloride 10 ml 08/13/18 16:34 08/17/18 06:40 Normal Saline Flush 0.9% IVP 10 ml PRN PRN Administration NEEDED PER PROVIDER ORDERS Sodium Chloride 10 ml 08/13/18 17:00 08/17/18 07:38 Normal Saline Flush 0.9% IVP 10 ml 0100,0900,1700 ANDREZ Administration Triamterene/HCTZ 1 cap 08/14/18 09:00 08/17/18 08:55 Dyazide PO 1 cap DAILY ANDREZ Administration Warfarin Sodium 5 mg 08/16/18 14:00 08/16/18 14:24 Coumadin PO 5 mg QDWARFARIN ANDREZ Administration Objective - Vital Signs/Intake & Output Reviewed Vital Signs: Yes Vital Signs: Vital Signs x48h Temp Pulse Pulse Resp BP BP Pulse Ox 08/17/18 08:55 125/62 08/17/18 08:00 36.9 C 118 H 18 125/62 95 08/17/18 07:14 108 H 16 Intake & Output: Intake & Output 08/14/18 08/15/18 08/16/18 08/17/18 23:59 23:59 23:59 23:59 Intake Total 3900.000 1286 1446 460 Output Total 2350 2650 200 Balance 1550.000 -1364 1246 460 - Objective General Appearance: positive: No acute distress, Alert Eyes Bilateral: positive: Normal inspection, PERRL ENT: positive: ENT inspection nml Neck: positive: Nml inspection Respiratory: positive: Chest non-tender, No respiratory distress, Wheezes. negative: Rales, Rhonchi Cardiovascular: positive: No murmur, No gallop, Irregularly irregular Peripheral Pulses: 2+ Radial (R), 2+ Radial (L) Abdomen: positive: Non-tender, No organomegaly, Nml bowel sounds, No distention Rectal: negative: Bloody stool Back: positive: Nml inspection Skin: positive: Color nml, No rash, Warm, Dry Extremities: positive: Non-tender, Full ROM, Nml appearance Neurologic/Psychiatric: positive: Oriented x3, Mood/affect nml - Lab Results Fish Bones: 08/16/18 05:45 08/16/18 05:45 ABX Reporting Has patient been on IV antibiotics over the past 48 hours?: Yes Assessment/Plan - Problem List (1) Acute respiratory failure with hypoxia Impression: Patient remains at 1.5L of oxygen via NC. Patient 95% oxygen saturation. Patient continues to have productive cough from pneumonia from pseudomonas positive culture with new culture of enterobacter. Consulted Infectious Disease due to sensitivies and pt allergies with ID suggestion of IV Cefepime. Patient switched to IV Cefepime with sensitivity to both pseudomonas and enterbacter. This is Day 5 of IV abx treatment for pseudomonas. IV Aztreonam does not cover anaerobes and did not cover enterobacter. This is Day 1 of Enterbacter coverage with IV C efepime. Plan: Monitor oxygen saturation, will require 1L home oxygen Issue of her Pseudomonas that is resistant requires her to stay in the hospital for IV treatment New Enterbacter culture with sensitivity to current treatment abx, IV Cefepime Treatment Day 1. Will continue PO Bactrim, culture sensitive, on discharge. Switched from IV Aztreonam to IV Cefepime from ID consult suggestion - Day 5 of IV abx treatment (2) Pneumonia Impression: Pneumonia suspected with hypoxia and chest x-ray showing infiltrates. Productive cough remains with NC of 1.5L at 925%. Sputum culture positive for pseudomona- aztreonam covers. Sensitivities to Cefepime, Cipro, Gentamicin, Imipenem, LEvo, Pipercillin, Tobramycin. Patient allergic to Levoquin and Ciprofloxacin and refuses to take this PO medication. Agrees to continue inpatient stay to receive IV aztreonam as all other sensitive abx are IV. Spoke with [facility], infectious disease consult, and they recommend changing her to cefepime for better coverage for the Pseudomonas with recommendation of 5-6 days of treatment. Today labs resulted with sputum culture positive Enterbacter with sensitivities to Cefepime. Aztreonam does not cover anaerobes and thus enterbacter has not been covered until the switch to Cefepime. Patient is on Day 5 treatment of pseudomas and Day 1 of enterbacter coverage. Enterbacter sensitivity to Bactrim and will prescribe outpatient. Due to no available sensi tive/tolerable PO abx, patient will remain inpatient to receive IV Cefepime with probably discharge on August 18 with enterbacter coverage with Bactrim. Plan: s/p IV abx aztreonam Day #5 covering for pseudomonas changed to IV Cefepime. Day 5 of abx treatment with coverage of both pseudomonas and Day 1 coverage of enterbacter. Monitor vitals and oxygen saturation Blood cultures were negative after 2 days. However her respiratory culture has grown out Pseudomonas and enterbacter. Urine culture has polymicrobial growth. Sensitivities noted above. Will prescribe Bactrim with discharge Qualifiers: Pneumonia type: due to Pseudomonas Laterality: bilateral Lung location: lower lobe of lung Qualified Code(s): J15.1 - Pneumonia due to Pseudomonas (3) Hypertension Impression: Chronic HTN. Plan: Monitor vitals. Blood pressure has been 107-161/51-89 continue home medication Qualifiers: Hypertension type: essential hypertension Qualified Code(s): I10 - Essential (primary) hypertension (4) COPD (chronic obstructive pulmonary disease) Impression: Chronic issue. Patient receiving aerosolized steroids and LABA via breathing treatments. Plan: Maintain oxygen saturation >92% Breathing treatments with steriods Qualifiers: COPD type: COPD with acute lower respiratory infection Qualified Code(s): J44.0 - Chronic obstructive pulmonary disease with acute lower respiratory infection (5) Atrial fibrillation Impression: Chronic atrial fibrillation. Patient heart rate controlled and currently metoprolol. INR was elevated, high of 4.7 - aspirin and coumadin held. Monitored INR level with decreased to 1.9 and coumadin/aspirin resumed. Plan: Aspirin and coumadin resumed with INR <3. Continue monitor vitals Qualifiers: Atrial fibrillation type: paroxysmal Qualified Code(s): I48.0 - Paroxysmal atrial fibrillation (6) Hypokalemia Impression: Hypokalemia on admission. Potassium administered with trend to 4.0. Potassium at 3.6 one day prior. Will recheck BMP today. Plan: Continue to monitor with BMP PO potassium if drops < 3.5
[2018-08-17] MEDS: POLYETHYLENE GLYCOL 3350 17 GM PACKET PO SCH (10:23)
[2018-08-17] MEDS ORDERED: BACITRACIN OINT TOP PRN (11:31)
[2018-08-17] MEDS: CEFEPIME 2 GM in SODIUM CHLORIDE 0.9% MINIBAG 100 ML IV SCH ×2 (12:59→23:47)
[2018-08-17] MEDS ORDERED: WINE 187 ML BOTTLE PO SCH (17:00)
[2018-08-17 17:30] LABS: CALCIUM 8.8 mg/dL (8.5-10.3); CREATININE 0.7 mg/dL (0.4-1.0)
[2018-08-17 17:31] LABS: INR 1.7 (0.8-1.2); PT - PROTHROMBIN TIME 19.3 secs (9.9-12.6)
[2018-08-17] MEDS: ALPRAZolam 0.25 MG TABLET PO SCH (20:19)
[2018-08-17] MEDS: NIFEdipine ER 30 MG TABLET PO SCH (20:19)
[2018-08-17] MEDS: ATORVASTATIN 10 MG TABLET PO SCH (20:19)
[2018-08-17] MEDS ORDERED: WARFARIN 5 MG TABLET PO SCH (21:00)
[2018-08-18] MEDS: AZTREONAM 2 GM in SODIUM CHLORIDE 0.9% MINIBAG 100 ML IV SCH ×2 (00:45→06:10)
[2018-08-18] MEDS: SODIUM CHLORIDE FLUSH 0.9% 10 ML SYRINGE IVP PRN (06:10)
[2018-08-18] MEDS: FORMOTEROL FUMARATE NEB 20 MCG/2 ML INH SCH (07:46)
[2018-08-18] MEDS: BUDESONIDE 0.5 MG/2 ML NEB INH SCH (07:46)
[2018-08-18 07:47] VITALS: BP 123/77
[2018-08-18] MEDS: METOPROLOL TARTRATE 25 MG TABLET PO SCH (08:11)
[2018-08-18] MEDS: SACCHAROMYCES BOULARDII 250 MG CAPSULE PO SCH (08:11)
[2018-08-18] MEDS: ASPIRIN CHEW 81 MG TABLET PO SCH (08:11)
[2018-08-18] MEDS: guaiFENesin 600 MG TABLET PO SCH (08:11)
[2018-08-18] MEDS: SODIUM CHLORIDE FLUSH 0.9% 10 ML SYRINGE IVP SCH (08:13)
[2018-08-18] MEDS: CEFEPIME 2 GM in SODIUM CHLORIDE 0.9% MINIBAG 100 ML IV SCH (08:13)
[2018-08-18] MEDS: POLYETHYLENE GLYCOL 3350 17 GM PACKET PO SCH (08:17)
--- NOTE | 2018-08-18 11:32 | DISCHARGE SUMMARY ---
Physician: Balbina Babcock MD DATE OF ADMISSION: 08/13/2018 DATE OF DISCHARGE: 08/18/2018 DISCHARGE DIAGNOSES 1. Acute respiratory failure with hypoxia. 2. Pneumonia with Enterobacter and Pseudomonas. 3. Hypertension. 4. Acute exacerbation of chronic obstructive pulmonary disease (COPD). 5. Atrial fibrillation with controlled rate, chronic. 6. Hypokalemia. 7. Abnormal urinary constituents. 8. Hypokalemia. DISCHARGE MEDICATIONS 1. Bactrim double strength 1 p.o. b.i.d. for 5 more days. 2. Xanax 0.25 mg p.o. q.p.m. p.r.n. 3. Zyrtec 10 mg p.o. daily. 4. Vitamin D 1000 units p.o. b.i.d. 5. Conjugated estrogens 0.3125 p.o. twice weekly. 6. Lovastatin 20 mg p.o. q.p.m. 7. Magnesium oxide 400 mg daily. 8. MSM 1000 mg p.o. daily. 9. Lopressor 25 mg p.o. b.i.d. 10. Dulera 2 puffs via inhalation b.i.d. 11. Multivitamin 1 p.o. daily. 12. Nifedipine extended release 15 mg p.o. daily. 13. Klor-Con 20 mEq p.o. b.i.d. 14. Daliresp 250 mg p.o. daily. 15. Florastor 250 mg p.o. daily. 16. Triamterene/hydrochlorothiazide 37.5/25 mg p.o. daily. 17. Coumadin 5 mg a day except 2.5 mg on Tuesdays. HOSPITAL PROCEDURES 1. Chest x-ray with streaky bibasilar opacities concerning for pneumonia. 2. Blood cultures negative after 2 days. 3. Respiratory culture growing Pseudomonas aeruginosa and Enterobacter with multidrug resistance. 4. Abnormal urinary constituents on UA with greater than 1000 colonies of polymicrobial growth suggesting skin or contamination. The patient is an 83-year-old female who has been coughing and not well for 5-6 weeks and dysuria with frequency for the last 3-4 weeks. She has COPD and uses a home nebulizer and that helps with breathing. She is not on oxygen. Ten days ago, the productive cough became nonproductive. She has had mild decrease in appetite. Shortness of breath with exertion is present, and coughing gets worse with exertion. She has been having dysuria, as well, and she is starting to feel like pain is radiating into her right flank, and she is unable to sleep on her right side. She has been having fever and chills. She went to see her primary care provider on the morning of admission. In her office, the O2 saturation was 80% with atrial fibrillation, uncontrolled in the 120s. She received a nebulizer treatment in the office and was placed on 2 liters, which got her up to 88%. EMS was called, and she was transported to the ED. In the emergency room, she was febrile to 38.3 at the end of 2 hours. Tachycardic in the 120s, blood pressure 164/67, and 95% on 2 liters. She was in mild respiratory distress, had diffuse wheezes, rhonchi, but no respiratory distress. She was irregularly irregular with tachycardia. White cell count was 24, sodium 134, potassium 3. Chest x-ray showed the bibasilar streaky opacities, which were worse from 11/19/2017. The patient was placed into the hospital with acute respiratory failure with hypoxia caused by pneumonia that is community-acquired. She has a MACROLIDE ALLERGY and, as such, we put her on Rocephin and aztreonam. She stayed on Rocephin and aztreonam, and when her sputum became positive for Pseudomonas, Rocephin was discontinued. She was adamant throughout her stay that she was allergic to Levaquin. We finally investigated her old records from when she said she was allergic to Levaquin and was causing bloody diarrhea and found that she in fact had had Levaquin for COPD exacerbation. At the end of her Levaquin treatment, the next day, she developed bloody diarrhea and was diagnosed with C. difficile colitis. We explained to her that the Levaquin did not give her bloody diarrhea, but it gave her C. difficile colitis with diarrhea. She was still adamant she did not want to take Levaquin. I then spoke to Infectious Disease at [facility], who stated that we could substitute cefepime to treat the Pseudomonas. After being on cefepime for 2 days, her sputum then grew out a second bacteria of Enterobacter. Cefepime did cover this Enterobacter on sensitivities, but she did not receive a complete course of treatment for the Enterobacter. It should be noted that her blood cultures were negative. As such, after completing 5 days of IV antibiotic therapy as recommended by [facility], she was transitioned to Bactrim to cover the Enterobacter and was felt to have completed her treatment for Pseudomonas. When she was about to be discharged the first time, she was noted to be hypoxemic and was going to need 1 liter of oxygen. By keeping her the next couple of days, she was discharged without needing oxygen at all, and she is 90%-92% on room air. Atrial fibrillation was initially uncontrolled, but when she was treated for her pneumonia, hypoxemia, pulse dropped into the 90s and was consistently below 110. There has been no change in her medication at this time. Coumadin was held for a few days because of an INR that was prolonged to 4.7. On the day of discharge, INR is 1.7, and she has been resumed on her Coumadin to her usual dose. Hypokalemia was present during her stay. With supplementation, she became normal and was 3.5 on the day of discharge. Hyponatremia remained relatively consistent with a sodium of 134 through her stay. Blood pressure was in the 120s-130s systolic, 70s-80s diastolic. The most she was 154/94. On the day of discharge, blood pressure was 123/77. No change in medications were needed to be made. She is now anxious for discharge. PHYSICAL EXAMINATION VITAL SIGNS: Temperature is 36.6, pulse is 98, respirations 16 and unlabored. She is 123/77. GENERAL: She is sitting comfortably at the bed and has just completed breakfast and has eaten 100%. She is an absolutely delightful, cheerful, elderly woman who is thin, no acute distress with a nasal tone of voice and still slightly hoarse. RESPIRATORY: Spontaneous laughing does result in occasional wheezing. She is not tachypneic, she has no increased use of accessory muscles and is comfortable talking and laughing to me. CARDIAC: She has an irregular rate and rhythm. Again, it should be noted she is hoarse with slight nasal tone of voice. ABDOMEN: Soft, benign. EXTREMITIES: Decreased muscle mass resulting in a thin appearance. Greater than 30 minutes was spent in coordinating discharge. She already has an appointment with Dr. Bowers this coming Thursday. She promises to make that appointment. TD: 08/18/2018 08:55 REVISED 08/20/2018 shawna [employer]CT [employer]CTION Orig. signed 08/19/2018 @0748 JOHANNAD
== END 2018-08-18 10:10 | disposition home or self-care (01) | DRG 189 ==
LOC: ED 15:12 → MS2 16:34
PROVIDERS: ADMIT Specialist; ATTEND Specialist
DX: J96.01 Acute respiratory failure with hypoxia (principal); J18.9 Pneumonia, unspecified organism; J15.6 Pneumonia due to other Gram-negative bacteria; R09.02 Hypoxemia; J15.1 Pneumonia due to Pseudomonas; J44.0 Chronic obstructive pulmonary disease with (acute) lower respiratory infection; J44.1 Chronic obstructive pulmonary disease with (acute) exacerbation; I48.0 Paroxysmal atrial fibrillation; E87.1 Hypo-osmolality and hyponatremia; E87.6 Hypokalemia; I48.2 Chronic atrial fibrillation; R30.0 Dysuria; R35.0 Frequency of micturition; I10 Essential (primary) hypertension; E78.5 Hyperlipidemia, unspecified; K21.9 Gastro-esophageal reflux disease without esophagitis; L40.9 Psoriasis, unspecified; R82.998 Other abnormal findings in urine; Z66 Do not resuscitate; Z79.01 Long term (current) use of anticoagulants; Z79.82 Long term (current) use of aspirin; Z79.51 Long term (current) use of inhaled steroids; Z87.891 Personal history of nicotine dependence; Z86.73 Personal history of transient ischemic attack (TIA), and cerebral infarction without residual deficits
CPT/HCPCS: 36415; 71046; 80048; 80053; 81001; 83605; 83690; 83735; 85025; 85610; 87040; 87070; 87077; 87086; 87181; 87205; 93005; 94640; 94761; 99284

== ENCOUNTER 2018-08-22 17:22 | Outpatient (CLI) | payer MEDICARE, BC | END 2018-08-22 17:23 | disposition home or self-care (01) | LOC: LAB 17:22 | PROVIDERS: ATTEND Family Medicine | DX: R07.89 Other chest pain (principal) | CPT/HCPCS: 36415; 84484 ==

== ENCOUNTER 2018-08-26 11:47 | Outpatient (CLI) | payer MEDICARE, BC ==
[2018-08-26 18:56] LABS: INR 1.1 (0.8-1.2); PT - PROTHROMBIN TIME 12.7 secs (9.9-12.6)
== END 2018-08-26 11:48 | disposition home or self-care (01) ==
LOC: LAB.WCP 11:47
PROVIDERS: ATTEND Family Medicine
DX: I48.0 Paroxysmal atrial fibrillation (principal); Z79.01 Long term (current) use of anticoagulants
CPT/HCPCS: 36415; 85610

== ENCOUNTER 2018-09-03 12:15 | Outpatient (CLI) | payer MEDICARE, BC ==
[2018-09-03 12:39] LABS: BASOPHILS # (AUTO) 0.1 10^3/uL (0.0-0.1); EOSINOPHILS # (AUTO) 0.3 10^3/uL (0.0-0.7); EOSINOPHILS % (AUTO) 5.6 %; HGB - HEMOGLOBIN 12.7 g/dL (12.0-16.0); LYMPHOCYTES # (AUTO) 1.3 10^3/uL (1.5-3.5); LYMPHOCYTES % (AUTO) 21.2 %; MEAN CORPUSCULAR HGB CONC 33.2 g/dL (32.0-36.0); MEAN CORPUSCULAR VOLUME 87.2 fL (81.0-99.0); MEAN PLATELET VOLUME 8.3 fL (7.9-10.8); MONOCYTES # (AUTO) 0.3 10^3/uL (0.0-1.0); MONOCYTES % (AUTO) 5.6 %; NEUTROPHILS # (AUTO) 3.9 10^3/uL (1.5-6.6); NEUTROPHILS % (AUTO) 66.6 %; PLT - PLATELET COUNT 337 10^3/uL (130-450); RED BLOOD COUNT 4.39 10^6/uL (4.20-5.40); RED CELL DISTRIBUTION WIDTH 13.6 % (12.0-15.0); WHITE BLOOD COUNT 5.9 x10^3/uL (4.8-10.8)
[2018-09-03 12:43] LABS: INR 2.1 (0.8-1.2); PT - PROTHROMBIN TIME 23.6 secs (9.9-12.6)
[2018-09-03 12:58] LABS: ALBUMIN 3.6 g/dL (3.2-5.5); ALBUMIN/GLOBULIN RATIO 0.9 (1.0-2.2); ALKALINE PHOSPHATASE 65 IU/L (42-121); ALT ALANINE AMINOTRANSFERASE 21 IU/L (10-60); AST ASPARTATE AMINOTRANSFERASE 24 IU/L (10-42); BILIRUBIN,TOTAL 0.6 mg/dL (0.2-1.0); BUN - BLOOD UREA NITROGEN 33 mg/dL (6-20); CALCIUM 9.4 mg/dL (8.5-10.3); CARBON DIOXIDE - CO2 27 mmol/L (21-32); CHLORIDE 103 mmol/L (101-111); CHOL/HDL RATIO 2.9 (<4.4); CHOLESTEROL 175 mg/dL; CREATININE 1.1 mg/dL (0.4-1.0); GFR - MDRD 47 (>89); GLUCOSE 112 mg/dL (70-100); HDL CHOLESTEROL 60 mg/dL; LDL CHOLESTEROL,CALCULATED 92 mg/dL; LDL/HDL RATIO 1.5 (<4.4); SODIUM 136 mmol/L (135-145); TOTAL PROTEIN 7.5 g/dL (6.7-8.2); VLDL CHOLESTEROL 23 mg/dL
== END 2018-09-03 12:16 | disposition home or self-care (01) ==
LOC: LAB 12:15
PROVIDERS: ATTEND Family Medicine
DX: E87.6 Hypokalemia (principal); R07.89 Other chest pain; E78.5 Hyperlipidemia, unspecified; I10 Essential (primary) hypertension; I48.0 Paroxysmal atrial fibrillation; Z79.01 Long term (current) use of anticoagulants
CPT/HCPCS: 36415; 80053; 80061; 83721; 84484; 85025; 85610

== ENCOUNTER 2018-12-18 08:00 | Outpatient (CLI) | payer MEDICARE, BC | END 2018-12-18 23:59 | disposition home or self-care (01) | LOC: LAB.WCP 08:00 | PROVIDERS: ATTEND Family Medicine | DX: I48.0 Paroxysmal atrial fibrillation (principal); Z79.01 Long term (current) use of anticoagulants ==

== ENCOUNTER 2019-01-15 08:00 | Outpatient (CLI) | payer MEDICARE, BC | END 2019-01-15 23:59 | disposition home or self-care (01) | LOC: LAB.WCP 08:00 | PROVIDERS: ATTEND Family Medicine | DX: I48.0 Paroxysmal atrial fibrillation (principal); Z79.01 Long term (current) use of anticoagulants | CPT/HCPCS: 81025 ==

== ENCOUNTER 2019-02-10 15:53 | Outpatient (CLI) | payer MEDICARE, BC ==
--- NOTE | 2019-02-11 13:12 | Mammography Report ---
Reason: SCREENING MAMMO Procedure Date: 02/10/2019 Accession Number: [id number] / [id number] Procedure: GIOVANNA - Screening Mammo w/Candelario CPT Code: FULL RESULT: EXAM: Screening Mammo w/Candelario DATE: 02/10/2019 4:24 PM CLINICAL HISTORY: Routine screening. Family history of breast cancer. TECHNIQUE: (B) - Bilateral CC and MLO views were obtained. COMPARISON: 11/30/2015 and 02/08/2012 PARENCHYMAL PATTERN: (D) - The breasts demonstrate heterogeneously dense fibroglandular parenchyma bilaterally. FINDINGS: There are increasing pleomorphic calcifications in the left breast 12:00 position 5 cm from the nipple. There has been a slight increase in pleomorphic calcifications in the 3:00 position right breast 8 cm from the nipple. There are no suspicious masses, skin thickening, or areas of distortion. IMPRESSION: Incomplete examination. BI-RADS category 0. RECOMMENDATION: (ADDMAM) - Recommend additional mammographic views. Suggest bilateral magnification views for areas of increasing calcifications as above. BI-RADS CATEGORY: (0) - Incomplete Examination - need additional evaluation. STANDARD QUALIFYING STATEMENTS: 1. This examination was not reviewed with the aid of Computer-Aided Detection (CAD). 2. A negative or benign imaging report should not preclude biopsy if clinically suspicious findings are present. 3. Dense breasts may obscure an underlying neoplasm. 4. This examination was reviewed with the aid of 3D breast imaging (tomosynthesis).
== END 2019-02-10 15:54 | disposition home or self-care (01) ==
LOC: DI 15:53
DX: Z12.31 Encounter for screening mammogram for malignant neoplasm of breast (principal); R92.1 Mammographic calcification found on diagnostic imaging of breast; Z80.3 Family history of malignant neoplasm of breast
CPT/HCPCS: 77063; 77067

== ENCOUNTER 2019-02-13 09:35 | Outpatient (CLI) | payer MEDICARE, BC ==
--- NOTE | 2019-02-13 12:12 | Mammography Report ---
Reason: ABNORMAL MAMMOGRAM Procedure Date: 02/13/2019 Accession Number: [id number] / [id number] Procedure: GIOVANNA - Diag Special Views Dig Bilat CPT Code: FULL RESULT: EXAM: Diag Special Views Dig Bilat DATE: 02/13/2019 10:29 AM CLINICAL HISTORY: Follow-up abnormal mammogram 02/10/2019 TECHNIQUE: (B) - Bilateral CC and MLO views were obtained. COMPARISON: 02/10/2019 and 11/30/2015 PARENCHYMAL PATTERN: (D) - The breasts demonstrate heterogeneously dense fibroglandular parenchyma bilaterally. FINDINGS: Additional bilateral magnification and true lateral views are performed. A 1 cm cluster of pleomorphic calcifications is again identified left breast 12:00 position 5 cm from the nipple and right breast 3:00 position 8 cm from the nipple. Multiple scattered benign-appearing coarse and vascular calcifications are seen scattered throughout both breasts. IMPRESSION: Probably Benign. BI-RADS category 3. RECOMMENDATION: (6MOS) - Recommend 6 month follow-up exam with bilateral magnification views. COMMENT: I discussed with the patient the option of stereotactic core biopsy at this time of the above-referenced bilateral calcifications versus 6 month follow-up bilateral magnification views. The most recent prior mammogram currently available for comparison is from 11/30/2015. In the interval the patient has had a mammogram at [facility] which we will attempt to obtain. In the absence of the [facility] mammograms the patient prefers six-month follow-up mammography over biopsy at this time. If the more recent [facility] mammograms become available for comparison the follow-up recommendation may be revised. BI-RADS CATEGORY: (3) - Probably Benign. STANDARD QUALIFYING STATEMENTS: 1. This examination was not reviewed with the aid of Computer-Aided Detection (CAD). 2. A negative or benign imaging report should not preclude biopsy if clinically suspicious findings are present. 3. Dense breasts may obscure an underlying neoplasm. 4. This examination was reviewed with the aid of 3D breast imaging (tomosynthesis).
== END 2019-02-13 09:36 | disposition home or self-care (01) ==
LOC: DI 09:35
PROVIDERS: ATTEND Family Medicine
DX: R92.1 Mammographic calcification found on diagnostic imaging of breast (principal)
CPT/HCPCS: 77066

== ENCOUNTER 2019-05-21 08:00 | Outpatient (CLI) | payer MEDICARE, BC | END 2019-05-21 23:59 | disposition home or self-care (01) | LOC: LAB.WCP 08:00 | PROVIDERS: ATTEND Family Medicine | DX: I48.0 Paroxysmal atrial fibrillation (principal); Z79.01 Long term (current) use of anticoagulants ==

== ENCOUNTER 2019-06-23 08:00 | Outpatient (CLI) | payer MEDICARE, BC | END 2019-06-23 23:59 | disposition home or self-care (01) | LOC: LAB.WCP 08:00 | PROVIDERS: ATTEND Family Medicine | DX: I48.0 Paroxysmal atrial fibrillation (principal); Z79.01 Long term (current) use of anticoagulants ==

== ENCOUNTER 2019-07-21 08:00 | Outpatient (CLI) | payer MEDICARE, BC | END 2019-07-21 23:59 | disposition home or self-care (01) | LOC: LAB.WCP 08:00 | PROVIDERS: ATTEND Family Medicine | DX: I48.0 Paroxysmal atrial fibrillation (principal); Z79.01 Long term (current) use of anticoagulants ==

== ENCOUNTER 2019-08-18 08:00 | Outpatient (CLI) | payer MEDICARE, BC | END 2019-08-18 23:59 | disposition home or self-care (01) | LOC: LAB.WCP 08:00 | PROVIDERS: ATTEND Family Medicine | DX: I48.0 Paroxysmal atrial fibrillation (principal); Z79.01 Long term (current) use of anticoagulants ==

== ENCOUNTER 2019-09-15 08:00 | Outpatient (CLI) | payer MEDICARE, BC | END 2019-09-15 23:59 | disposition home or self-care (01) | LOC: LAB.WCP 08:00 | PROVIDERS: ATTEND Family Medicine | DX: I48.0 Paroxysmal atrial fibrillation (principal); Z79.01 Long term (current) use of anticoagulants ==

== ENCOUNTER 2019-10-13 08:00 | Outpatient (CLI) | payer MEDICARE, BC | END 2019-10-13 23:59 | disposition home or self-care (01) | LOC: LAB.WCP 08:00 | PROVIDERS: ATTEND Nurse Practitioner Family | DX: Z79.01 Long term (current) use of anticoagulants (principal); I48.0 Paroxysmal atrial fibrillation ==

== ENCOUNTER 2019-11-10 08:00 | Outpatient (CLI) | payer MEDICARE, BC | END 2019-11-10 23:59 | disposition home or self-care (01) | LOC: LAB.WCP 08:00 | PROVIDERS: ATTEND Family Medicine | DX: Z79.01 Long term (current) use of anticoagulants (principal); I48.0 Paroxysmal atrial fibrillation ==

== ENCOUNTER 2019-12-05 08:30 | Emergency (ER) | payer MEDICARE, BC ==
--- NOTE | 2019-12-05 08:52 | ED Physician Documentation ---
PD HPI UPPER EXT INJURY - Stated complaint Stated Complaint: R HAND CAT BITE - Chief complaint Chief Complaint: Wound - History obtained from History obtained from: Patient - History of Present Illness Location: Right, Hand (dorsal aspect proximal ulnar side. With tenderness and pain initially, and has gotten red and swollen overnight.) Type of injury: Puncture wound (from bite from her own cat.) Where injury occurred: Home Timing - onset: Yesterday Timing - details: Abrupt onset, Still present Worsened by: Moving, Palpating Associated symptoms: Swelling, Discolored (redness and some also bruising at bite area.). No: Weakness, Numbness Contributing factors: Anticoagulated (with INR done yesterday of 2.5) Similar symptoms before: Diagnosis (had similar bite infection about 5 years ago.) Review of Systems Constitutional: reports: Chills, Myalgias. 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: None : None HEENT: Other Psych: None Musculoskeletal: None Derm: Psoriasis - Past Surgical History Past Surgical History: Yes General: Appendectomy, Colonoscopy /LAWYER PROBATE: Hysterectomy, Other ( vaginal births) HEENT: Cataracts - Present Medications Home Medications: Ambulatory Orders Medication Instructions Recorded Confirmed ALPRAZolam [Xanax] 0.25 mg PO QPM PRN 05/21/16 08/14/18 Lovastatin 20 mg PO QPM 05/21/16 08/14/18 Magnesium Oxide [Mag Ox] 400 mg PO QPM 05/21/16 08/14/18 Methylsulfonylmethane [MSM] 1,000 mg PO DAILY 05/21/16 08/14/18 Mometasone/Formoterol [Dulera 200 2 puffs PO BID 05/21/16 08/14/18 Mcg-5 Mcg Inhaler] Potassium Chloride [Klor-Con M20] 20 meq PO BID 05/21/16 08/14/18 Roflumilast [Daliresp] 250 mcg PO DAILY 05/21/16 08/14/18 Triamterene/Hydrochlorothiazid 1 tab PO DAILY 05/21/16 08/14/18 [Triamterene-Hctz 37.5-25 mg Tb] Albuterol Sulf [Ventolin Hfa 1 - 2 puffs INH Q4HR PRN #1 inhaler 08/02/17 08/14/18 Inhaler] Metoprolol Tartrate [Lopressor] 25 mg PO BID 09/05/17 08/14/18 NIFEdipine [Nifedipine ER] 15 mg PO QPM 09/05/17 08/14/18 Warfarin [Coumadin] 5 mg PO UD 09/05/17 08/14/18 Cetirizine [ZyrTEC] 10 mg PO DAILY 08/14/18 08/14/18 Cholecalciferol (Vitamin D3) 1,000 unit PO BID 08/14/18 08/14/18 [Vitamin D3] Estrogens, Conjugated [Premarin] 0.3125 mg PO UD 08/14/18 08/14/18 Multivitamin [Multiple Vitamins] 1 each PO DAILY 08/14/18 08/14/18 Saccharomyces Boulardii [Florastor] 250 mg PO DAILY 08/14/18 08/14/18 Amox/Clav 875/125 [Augmentin] 1 each PO Q12H #14 tablet 12/05/19 Hydrocodone/Acetaminophen 1 each PO Q6H PRN #12 tablet 12/05/19 [Hydrocodon-Acetaminophen 5-325] Ondansetron Odt [Zofran] 4 mg TL Q6H PRN #10 tablet 12/05/19 - Allergies Allergies/Adverse Reactions: Allergies Allergy/AdvReac Type Severity Reaction Status Date / Time erythromycin base Allergy Intermediate Edema Verified 12/05/19 08:40 [Erythromycin Base] levofloxacin [From Levaquin] Allergy Intermediate Bleeding Verified 12/05/19 08:40 Macrolide Antibiotics Allergy Intermediate Edema Verified 12/05/19 08:40 phisahex skin soap Allergy Intermediate Edema Uncoded 12/05/19 08:40 - Social History Does the pt smoke?: No Smoking Status: Former smoker (30 pack history of smoking) Does the pt drink ETOH?: No Does the pt have substance abuse?: No - Immunizations Immunizations are current?: Yes - POLST Patient has POLST: No POLST Status: DNR PD ED PE NORMAL - Vitals Vital signs reviewed: Yes - General General: Alert and oriented X 3, No acute distress, Well developed/nourished - Neck Neck: Supple, no meningeal sign, No adenopathy - Cardiac Cardiac: No murmur - Respiratory Respiratory: Clear bilaterally - Derm Derm: Normal color, Warm and dry - Extremities Extremities: Other (dorsum right hand with cat bite puncture and small tear, about 1.5 cm, without FB nor bleeding. Locally tender. There is some swelling with bruising noted, but also redness and warmth in area as well. ) - Neuro Neuro: No motor deficit, No sensory deficit Results - Vitals Vitals: Vital Signs - 24 hr 12/05/19 12/05/19 08:37 10:31 Temperature 36.6 C Heart Rate 69 76 Respiratory 18 16 Rate Blood Pressure 126/56 L 120/64 O2 Saturation 97 99 Oxygen O2 Source Room air PD MEDICAL DECISION MAKING - ED course Complexity details: reviewed old records (cat bite with infection visit seen 2016 with Rx of Augmentin and Zofran at that time. ), considered differential, d/w patient Departure - Departure Disposition: 01 Home, Self Care Clinical Impression: Infection of cat scratch wound Cat bite of right hand Qualifiers: Encounter type: initial encounter Qualified Code(s): S61.451A - Open bite of right hand, initial encounter Condition: Stable Record reviewed to determine appropriate education?: Yes Instructions: ED Bite Cat Follow-Up: Alon Calix DO [Primary Care Provider] - Prescriptions: Amox/Clav 875/125 [Augmentin] 1 each PO Q12H #14 tablet Hydrocodone/Acetaminophen [Hydrocodon-Acetaminophen 5-325] 1 each PO Q6H PRN #12 tablet PRN Reason: pain Ondansetron Odt [Zofran] 4 mg TL Q6H PRN #10 tablet PRN Reason: Nausea / Vomiting Comments: Clean the wound twice daily with soap and water and apply ointment. Use the wrist splint to protect range of motion of the hand as needed for comfort. Augmentin antibiotic twice daily for a week as this is the preferred antibiotic for this type of injury. Use ondansetron if needed for nausea. You have gotten this antibiotic in 2016 for cat bite infection as well. Tylenol if needed for pains. Add hydrocodone if needed for worse pain. Recheck if not improved well over the next several days return sooner if worsening. Discharge Date/Time: 12/05/19 10:31
[2019-12-05] MEDS ORDERED: HYDROcod/ACETAM 5/325 MG TABLET PO STA (09:28)
[2019-12-05] MEDS ORDERED: NAPROXEN 250 MG TABLET PO STA (09:28)
[2019-12-05] MEDS ORDERED: AMOX/CLAV 875 MG/125 MG TABLET PO STA (09:28)
[2019-12-05 10:32] VITALS: BP 120/64
== END 2019-12-05 10:31 | disposition home or self-care (01) ==
LOC: ED 08:30
DX: S61.451A Open bite of right hand, initial encounter (principal); L08.9 Local infection of the skin and subcutaneous tissue, unspecified; W55.01XA Bitten by cat, initial encounter; Y92.009 Unspecified place in unspecified non-institutional (private) residence as the place of occurrence of the external cause; I10 Essential (primary) hypertension; Z87.891 Personal history of nicotine dependence; Z66 Do not resuscitate
CPT/HCPCS: 99283; 99284; A9270; 85610

== ENCOUNTER 2019-12-22 08:00 | Outpatient (CLI) | payer MEDICARE, BC | END 2019-12-29 23:59 | disposition home or self-care (01) | LOC: LAB.WCP 08:00 | PROVIDERS: ATTEND Family Medicine | DX: I48.0 Paroxysmal atrial fibrillation (principal) ==

== ENCOUNTER 2019-12-22 08:00 | Outpatient (CLI) | payer MEDICARE, BC | END 2019-12-22 23:59 | disposition home or self-care (01) | LOC: LAB.WCP 08:00 | PROVIDERS: ATTEND Family Medicine | DX: H57.11 Ocular pain, right eye (principal); R35.0 Frequency of micturition; I48.0 Paroxysmal atrial fibrillation | CPT/HCPCS: 36415; 85651; 86140; 87086 ==

== ENCOUNTER 2019-12-22 13:00 | Outpatient (CLI) | payer MEDICARE, BC | END 2019-12-22 23:59 | disposition home or self-care (01) | LOC: LAB.R 13:00 | PROVIDERS: ATTEND Family Medicine | DX: R35.0 Frequency of micturition (principal) | CPT/HCPCS: 87086 ==

== ENCOUNTER 2020-01-05 08:00 | Outpatient (CLI) | payer MEDICARE, BC | END 2020-01-05 23:59 | disposition home or self-care (01) | LOC: LAB.WCP 08:00 | PROVIDERS: ATTEND Family Medicine | DX: I48.0 Paroxysmal atrial fibrillation (principal); Z79.01 Long term (current) use of anticoagulants ==

== ENCOUNTER 2020-02-02 08:00 | Outpatient (CLI) | payer MEDICARE, BC | END 2020-02-02 23:59 | disposition home or self-care (01) | LOC: LAB.WCP 08:00 | PROVIDERS: ATTEND Family Medicine | DX: I48.0 Paroxysmal atrial fibrillation (principal); Z79.01 Long term (current) use of anticoagulants ==

== ENCOUNTER 2020-03-01 08:00 | Outpatient (CLI) | payer MEDICARE, BC | END 2020-03-01 23:59 | disposition home or self-care (01) | LOC: LAB.WCP 08:00 | PROVIDERS: ATTEND Family Medicine | DX: I48.0 Paroxysmal atrial fibrillation (principal); Z79.01 Long term (current) use of anticoagulants ==

== ENCOUNTER 2020-03-29 13:19 | Outpatient (CLI) | payer MEDICARE, BC | END 2020-03-29 23:59 | disposition home or self-care (01) | LOC: LAB.WCP 13:19 | PROVIDERS: ATTEND Family Medicine | DX: I48.0 Paroxysmal atrial fibrillation (principal); Z79.01 Long term (current) use of anticoagulants ==

== ENCOUNTER 2020-05-03 08:00 | Outpatient (CLI) | payer MEDICARE, BC | END 2020-05-03 23:59 | disposition home or self-care (01) | LOC: LAB.WCP 08:00 | PROVIDERS: ATTEND Family Medicine | DX: I48.0 Paroxysmal atrial fibrillation (principal); Z79.01 Long term (current) use of anticoagulants ==

== ENCOUNTER 2020-06-07 08:00 | Outpatient (CLI) | payer MEDICARE, BC | END 2020-06-07 23:59 | disposition home or self-care (01) | LOC: LAB.WCP 08:00 | PROVIDERS: ATTEND Family Medicine | DX: I48.0 Paroxysmal atrial fibrillation (principal); Z79.01 Long term (current) use of anticoagulants ==

== ENCOUNTER 2020-06-28 08:00 | Outpatient (CLI) | payer MEDICARE, BC | END 2020-06-28 23:59 | disposition home or self-care (01) | LOC: LAB.WCP 08:00 | PROVIDERS: ATTEND Nurse Practitioner | DX: I48.0 Paroxysmal atrial fibrillation (principal); Z79.01 Long term (current) use of anticoagulants ==

== ENCOUNTER 2020-07-19 12:33 | Outpatient (CLI) | payer MEDICARE, BC ==
--- NOTE | 2020-07-19 12:38 | XRAY Report ---
PROCEDURE: Ankle 3 View RT INDICATIONS: RIGHT ANKLE PAIN TECHNIQUE: 3 views of the ankle were acquired. COMPARISON: None FINDINGS: Bones: No definite fractures or dislocations but there is soft tissue swelling at the lateral malleo octavio, mild in overall severity. Note is made of a slight irregularity at the inferior tip of the later al malleolus, likely small avulsion injury to the cortical margin measuring only approximately 1 x 2 mm.. Ankle mortise is normally aligned. No suspicious bony lesions. Soft tissues: No tibiotalar joint effusion. Achilles tendon appears normal. IMPRESSION: Soft tissue swelling at the lateral malleolus, minimal 1 x 2 mm avulsion injury appears present at the far inferior tip of the lateral malleolus. A cortical fracture is not associated, underwood cathleen. Reviewed by: Baldev Sosa MD on 07/19/2020 12:36 PM PDT Approved by: Baldev Sosa MD on 07/19/2020 12:36 PM PDT Station ID: [id number]
== END 2020-07-19 23:59 | disposition home or self-care (01) ==
LOC: DI.WCP 12:33
PROVIDERS: ATTEND Physician Assistant
DX: R93.6 Abnormal findings on diagnostic imaging of limbs (principal); M79.9 Soft tissue disorder, unspecified

== ENCOUNTER 2020-07-27 08:00 | Outpatient (CLI) | payer MEDICARE, BC | END 2020-07-27 23:59 | disposition home or self-care (01) | LOC: LAB.WCP 08:00 | PROVIDERS: ATTEND Family Medicine | DX: Z79.01 Long term (current) use of anticoagulants (principal) ==

== ENCOUNTER 2020-09-20 08:00 | Outpatient (CLI) | payer MEDICARE, BC | END 2020-09-20 23:59 | disposition home or self-care (01) | LOC: LAB.WCP 08:00 | PROVIDERS: ATTEND Family Medicine | DX: Z79.01 Long term (current) use of anticoagulants (principal) ==

== ENCOUNTER 2020-10-18 08:00 | Outpatient (CLI) | payer MEDICARE, BC | END 2020-10-18 23:59 | disposition home or self-care (01) | LOC: LAB.WCP 08:00 | PROVIDERS: ATTEND Family Medicine | DX: Z79.01 Long term (current) use of anticoagulants (principal) ==

== ENCOUNTER 2020-11-15 08:00 | Outpatient (CLI) | payer MEDICARE, BC | END 2020-11-15 23:59 | disposition home or self-care (01) | LOC: LAB.N 08:00 | PROVIDERS: ATTEND Family Medicine | DX: Z79.01 Long term (current) use of anticoagulants (principal) ==

== ENCOUNTER 2020-12-10 08:38 | Outpatient (CLI) | payer MEDICARE, BC | END 2020-12-10 08:39 | disposition critical access hospital (66) | LOC: EMS 08:38 | PROVIDERS: ATTEND Emergency Medicine | DX: R53.1 Weakness (principal); R26.2 Difficulty in walking, not elsewhere classified | CPT/HCPCS: A0425; A0429 ==

== ENCOUNTER 2020-12-10 08:54 | Emergency (ER) | payer MEDICARE, BC ==
--- NOTE | 2020-12-10 09:08 | ED Physician Documentation ---
PD HPI FOCAL NEURO - Stated complaint Stated Complaint: R SIDE WEAKNESS - Chief complaint Chief Complaint: Neuro - History obtained from History obtained from: Patient, EMS - History of Present Illness Timing - onset: How many hours ago (1) Timing - duration: Minutes (15) Timing - details: Abrupt onset Severity of deficit: Moderate Weakness: Face, Arm, Hand, Leg, Foot, Right Numbness: No: Face, Arm, Hand, Leg, Foot, Right, Left, Other Associated symptoms: No: Headache, Nausea / vomiting, Seizure, Syncope, Fall, Head injury, Chest pain, Neck pain, Back pain, Fever Contributing factors: positive: Anticoagulated (warfarin), Atrial fibrillation Baseline status: positive: A&OX3, ambulatory, indep - Additional information Additional information: Patient was admitted about 3 years ago for a left-sided stroke versus TIA. She states that she was sent down to [facility]. Currently does not have any deficits. Today had 15 minutes of right-sided weakness. She states that she does have some narrowing of her carotid arteries in the past. She is on warfarin for A. fib. 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 : None HEENT: Other Psych: None Musculoskeletal: None Derm: Psoriasis - Past Surgical History Past Surgical History: Yes General: Appendectomy, Colonoscopy /PRINTED CIRCUIT DESIGNER: Hysterectomy, Other ( vaginal births) HEENT: Cataracts - Present Medications Home Medications: Ambulatory Orders Medication Instructions Recorded Confirmed ALPRAZolam [Xanax] 0.25 mg PO QPM PRN 05/21/16 12/10/20 Lovastatin 20 mg PO QPM 05/21/16 12/10/20 Magnesium Oxide [Mag Ox] 400 mg PO QPM 05/21/16 12/10/20 Methylsulfonylmethane [MSM] 1,000 mg PO DAILY 05/21/16 12/10/20 Mometasone/Formoterol [Dulera 200 2 puffs PO BID 05/21/16 12/10/20 Mcg-5 Mcg Inhaler] Potassium Chloride [Klor-Con M20] 20 meq PO BID 05/21/16 12/10/20 Triamterene/Hydrochlorothiazid 1 tab PO DAILY 05/21/16 12/10/20 [Triamterene-Hctz 37.5-25 mg Tb] Albuterol Sulf [Ventolin Hfa 1 - 2 puffs INH Q4HR PRN #1 inhaler 08/02/17 12/10/20 Inhaler] Metoprolol Tartrate [Lopressor] 25 mg PO BID 09/05/17 12/10/20 Warfarin [Coumadin] 5 mg PO UD 09/05/17 12/10/20 Cetirizine [ZyrTEC] 10 mg PO DAILY 08/14/18 12/10/20 Cholecalciferol (Vitamin D3) 1,000 unit PO BID 08/14/18 12/10/20 [Vitamin D3] Estrogens, Conjugated [Premarin] 0.3125 mg PO UD 08/14/18 12/10/20 Multivitamin [Multiple Vitamins] 1 each PO DAILY 08/14/18 12/10/20 - Allergies Allergies/Adverse Reactions: Allergies Allergy/AdvReac Type Severity Reaction Status Date / Time erythromycin base Allergy Intermediate Edema Verified 12/10/20 09:06 [Erythromycin Base] levofloxacin [From Levaquin] Allergy Intermediate Bleeding Verified 12/10/20 09:06 Macrolide Antibiotics Allergy Intermediate Edema Verified 12/10/20 09:06 albuterol Allergy Unknown Verified 12/10/20 09:06 amoxicillin Allergy Unknown Verified 12/10/20 09:06 clavulanic acid Allergy Unknown Verified 12/10/20 09:06 [From Augmentin] pneumococcal vaccine Allergy Unknown Verified 12/10/20 09:06 [From Pneumovax 23] tiotropium Allergy Unknown Verified 12/10/20 09:06 [From Spiriva with HandiHaler] phisahex skin soap Allergy Intermediate Edema Uncoded 12/10/20 09:06 - Social History Does the pt smoke?: No Smoking Status: Former smoker (30 pack history of smoking) Does the pt drink ETOH?: No Does the pt have substance abuse?: No - Immunizations Immunizations are current?: Yes - POLST Patient has POLST: No POLST Status: DNR PD ED PE NORMAL - Vitals Vital signs reviewed: Yes - General General: Alert and oriented X 3, No acute distress, Well developed/nourished - HEENT HEENT: PERRL, Moist mucous membranes - Neck Neck: Supple, no meningeal sign - Cardiac Cardiac: RRR, Strong equal pulses - Respiratory Respiratory: No respiratory distress, Clear bilaterally - Abdomen Abdomen: Soft, Non tender, Non distended - Back Back: No CVA TTP, No spinal TTP - Derm Derm: Warm and dry, No rash - Extremities Extremities: No edema, No calf tenderness / cord - Neuro Neuro: Alert and oriented X 3, 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, No motor deficit, No sensory deficit, Normal speech - Psych Psych: Normal mood, Normal affect NIHSS - Time Time: 09:03 - Level of Consciousness Level of consciousness: (0) Alert, Keenly responsive LOC Questions: (0) Answers both Q's correct LOC Commands: (0) Performs both correctly - Gaze Best Gaze: (0) Normal - Visual Visual: (0) No loss - Facial Palsy Facial Palsy: (0) Normal, symmetrical movement - Motor Arms (both separate) Motor Arm (right): (0) No drift Motor Arm (left): (0) No drift - Motor Legs (both separate) Motor Leg (right): (0) No drift Motor Leg (left): (0) No drift - Limb Ataxia Limb Ataxia: (0) Absent - Sensory Sensory: (0) Normal - Best Language Best Language: (0) No aphasia - Dysarthria Dysarthria: (0) Normal - Extinction and Inattention (formally neg Extinction and inattention: (0) No abnormality - Total Score/Results Total Score/Result: 0 Results - Vitals Vitals: Vital Signs - 24 hr 12/10/20 12/10/20 12/10/20 09:00 10:05 10:07 Temperature 36.4 C L Heart Rate 74 66 Respiratory 18 18 Rate Blood Pressure 142/92 H 147/75 H O2 Saturation 95 99 12/10/20 12/10/20 12:00 14:12 Temperature 36.5 C Heart Rate 80 78 Respiratory 18 24 Rate Blood Pressure 167/87 H 167/80 H O2 Saturation 98 96 Oxygen O2 Source Room air - EKG (time done) 0904 Rate: Rate (enter#) (69) Rhythm: NSR [place]: Normal Intervals: Normal RI, RBBB - Labs Labs: Laboratory Tests 12/10/20 12/10/20 12/10/20 09:14 09:14 09:14 WBC 5.2 RBC 4.39 Hgb 13.0 Hct 41.2 MCV 93.8 MCH 29.6 MCHC 31.6 L RDW 12.2 Plt Count 199 MPV 10.4 Neut # (Auto) 3.5 Lymph # (Auto) 0.9 L Mayes # (Auto) 0.5 Eos # (Auto) 0.3 Baso # (Auto) 0.0 Absolute Nucleated RBC 0.00 Nucleated RBC % 0.0 PT 27.7 H INR 2.6 H Sodium 140 Potassium 3.9 Chloride 100 L Carbon Dioxide 26 Anion Gap 14.0 H BUN 37 H Creatinine 0.9 Estimated GFR (MDRD) 60 L Glucose 113 H Calcium 9.9 Total Bilirubin 0.6 AST 26 ALT 20 Alkaline Phosphatase 49 Total Protein 7.1 Albumin 3.5 Globulin 3.6 Albumin/Globulin Ratio 1.0 Urine Color Urine Clarity Urine pH Ur Specific [place] Urine Protein Urine Glucose (UA) Urine Ketones Urine Occult Blood Urine Nitrite Urine Bilirubin Urine Urobilinogen Ur Leukocyte Esterase Urine RBC Urine WBC Ur Squamous Epith Cells Urine Bacteria Ur Microscopic Review Urine Culture Comments Nasal Adenovirus (PCR) Nasal B. parapertussis DNA (PCR) Nasal Coronavir 229E PCR Nasal Coronavir HKU1 PCR Nasal Coronavir NL63 PCR Nasal Coronavir OC43 PCR Nasal Enterovir/Rhinovir PCR Nasal Influenza B PCR Nasal Influenza A PCR Nasal Parainfluen 1 PCR Nasal Parainfluen 2 PCR Nasal Parainfluen 3 PCR Nasal Parainfluen 4 PCR Nasal RSV (PCR) Nasal B.pertussis DNA PCR Nasal C.pneumoniae (PCR) Grey Human Metapneumo PCR Nasal M.pneumoniae (PCR) Nasal SARS-CoV-2 (PCR) 12/10/20 12/10/20 10:15 11:08 WBC RBC Hgb Hct MCV MCH MCHC RDW Plt Count MPV Neut # (Auto) Lymph # (Auto) Mayes # (Auto) Eos # (Auto) Baso # (Auto) Absolute Nucleated RBC Nucleated RBC % PT INR Sodium Potassium Chloride Carbon Dioxide Anion Gap BUN Creatinine Estimated GFR (MDRD) Glucose Calcium Total Bilirubin AST ALT Alkaline Phosphatase Total Protein Albumin Globulin Albumin/Globulin Ratio Urine Color LIGHT YELLOW Urine Clarity HAZY Urine pH 7.5 Ur Specific [place] 1.010 Urine Protein NEGATIVE Urine Glucose (UA) NEGATIVE Urine Ketones NEGATIVE Urine Occult Blood TRACE-INTA Urine Nitrite NEGATIVE Urine Bilirubin NEGATIVE Urine Urobilinogen 0.2 (NORMAL) Ur Leukocyte Esterase SMALL H Urine RBC 6-10 H Urine WBC >25 H Ur Squamous Epith Cells FEW Squamous Urine Bacteria Few Ur Microscopic Review INDICATED Urine Culture Comments INDICATED Nasal Adenovirus (PCR) NOT DETECTED Nasal B. parapertussis DNA (PCR) NOT DETECTED Nasal Coronavir 229E PCR NOT DETECTED Nasal Coronavir HKU1 PCR NOT DETECTED Nasal Coronavir NL63 PCR NOT DETECTED Nasal Coronavir OC43 PCR NOT DETECTED Nasal Enterovir/Rhinovir PCR NOT DETECTED Nasal Influenza B PCR NOT DETECTED Nasal Influenza A PCR NOT DETECTED Nasal Parainfluen 1 PCR NOT DETECTED Nasal Parainfluen 2 PCR NOT DETECTED Nasal Parainfluen 3 PCR NOT DETECTED Nasal Parainfluen 4 PCR NOT DETECTED Nasal RSV (PCR) NOT DETECTED Nasal B.pertussis DNA PCR NOT DETECTED Nasal C.pneumoniae (PCR) NOT DETECTED Grey Human Metapneumo PCR NOT DETECTED Nasal M.pneumoniae (PCR) NOT DETECTED Nasal SARS-CoV-2 (PCR) NOT DETECTED - Rads (name of study) CTA head Radiology: Prelim report reviewed, EMP read contemporaneously, See rad report CTA neck Radiology: Prelim report reviewed, EMP read contemporaneously, See rad report PD MEDICAL DECISION MAKING - ED course Complexity details: reviewed results, re-evaluated patient, considered differential, d/w patient ED course: 85-year-old female with what appears to be a TIA. ABCD 2 score of 5. No recurrent symptoms while in the emergency department. She is on warfarin. Took aspirin prior to arrival. Her CT angio of the neck shows a 90% stenosis of the left proximal ICA. Appears to have progressed since 2017. This could correlate to the cause of her symptoms today. Therefore I spoke with vascular surgery ROWAN Ryder at [facility] in [place] who recommends transfer for further care. Discussed with Dr. Jones, hospitalist who would like me to speak with neurology first. Neurology will be contacted and then the patient will likely be transferred to [facility]. They request an MRI of the brain as well. Discussed the case with Dr. Hawkins, neurology who states that it is fine to transfer the patient to the hospitalist at [facility] in [place]. Patient does have a UTI and was treated with Rocephin for this. Doubt that this is the cause of her symptoms. COBRA forms completed. This document was made in part using voice recognition software. While efforts are made to proofread this document, sound alike and grammatical errors may occur. IMPRESSION: No significant intracranial abnormality is seen. No intracranial hemorrhage is seen. No significant intracranial arterial abnormalities are seen. Age- appropriate brain parenchymal volume loss and chronic small vessel ischemic change can be seen. IMPRESSION: There is 80-90% stenosis seen involving the left proximal internal carotid artery, which appears progressed compared to 2017. There is approximately 50% narrowing seen involving the right carotid bifurcation, with 40-50% narrowing involving the right proximal internal carotid artery. Incidental note is made of: Relatively prominent cervical spine degenerative change Pulmonary emphysema Direct origin of the left vertebral artery from the aortic arch The estimate of stenosis included in the report of the imaging study was calculated using the NASCET method Departure - Departure Disposition: 02 Transfer Acute Care Hosp Clinical Impression: TIA (transient ischemic attack) Carotid artery stenosis Qualifiers: Laterality: left Qualified Code(s): I65.22 - Occlusion and stenosis of left carotid artery UTI (urinary tract infection) Qualifiers: Urinary tract infection type: acute cystitis Hematuria presence: without hematuria Qualified Code(s): N30.00 - Acute cystitis without hematuria Condition: Stable
[2020-12-10] MEDS ORDERED: IOVERSOL 320 100 ML VIAL IVP ONE ×2 (09:17→11:51)
[2020-12-10 09:18] LABS: BASOPHILS % (AUTO) 0.8 %; EOSINOPHILS # (AUTO) 0.3 10^3/uL (0.0-0.7); LYMPHOCYTES # (AUTO) 0.9 10^3/uL (1.5-3.5); LYMPHOCYTES % (AUTO) 16.8 %; MEAN CORPUSCULAR HEMOGLOBIN 29.6 pg (27.0-31.0); MEAN CORPUSCULAR HGB CONC 31.6 g/dL (32.0-36.0); MEAN CORPUSCULAR VOLUME 93.8 fL (81.0-99.0); MEAN PLATELET VOLUME 10.4 fL (7.9-10.8); MONOCYTES # (AUTO) 0.5 10^3/uL (0.0-1.0); MONOCYTES % (AUTO) 10.3 %; NEUTROPHILS # (AUTO) 3.5 10^3/uL (1.5-6.6); NEUTROPHILS % (AUTO) 66.9 %; PLT - PLATELET COUNT 199 10^3/uL (130-450); RED BLOOD COUNT 4.39 10^6/uL (4.20-5.40); RED CELL DISTRIBUTION WIDTH 12.2 % (12.0-15.0); WHITE BLOOD COUNT 5.2 x10^3/uL (4.8-10.8)
[2020-12-10 09:28] LABS: ALBUMIN 3.5 g/dL (3.2-5.5); BILIRUBIN,TOTAL 0.6 mg/dL (0.2-1.0); CALCIUM 9.9 mg/dL (8.5-10.3); CREATININE 0.9 mg/dL (0.4-1.0); TOTAL PROTEIN 7.1 g/dL (6.7-8.2)
[2020-12-10 09:57] LABS: INR 2.6 (0.8-1.2); PT - PROTHROMBIN TIME 27.7 secs (9.9-12.6)
--- NOTE | 2020-12-10 10:03 | CT Report ---
PROCEDURE: ANGIO NECK W INDICATIONS: R sided weakness x 15 mins CONTRAST: 80 cc Optiray 320 TECHNIQUE: After the administration of intravenous contrast, 1.5 mm axial sections acquired from the aortic arch to the [place] of [place]. Coronal 3-D maximum intensity projection (MIP) and/or volume rendering ref ormats were then performed. For radiation dose reduction, the following was used: automated exposur e control, adjustment of mA and/or kV according to patient size. COMPARISON: 09/03/2017. Correlation is also made with the accompanying head CT angiogram, 12/10/2020. FINDINGS: Image quality: Excellent. Carotid system: The great vessels demonstrate a conventional anatomy as they arise from the aortic a [facility]. The origins of the common carotid arteries appear patent. The common carotid arteries demonstr ate normal calibers and courses. The bifurcation regions demonstrate dense atherosclerotic calcifica tion. There is age-related percent stenosis of the left proximal internal carotid artery. There is ap proximately 50% narrowing at the right carotid bifurcation, with 40-50% narrowing seen involving the right proximal internal carotid artery. The more distal internal carotid arteries demonstrate normal course and caliber. Posterior circulation: The origins of the vertebral arteries appear patent. There is a direct origi n of the left vertebral artery from the aortic arch. The more superior portions of the vertebral art eries demonstrate normal course and caliber. The distal left vertebral artery largely terminates in t he left posterior inferior cerebellar artery. The right vertebral artery is dominant to the left. Soft tissues: Visualized neck soft tissues demonstrate no suspicious abnormalities. The thyroid gla nd is normal in size. Relatively prominent emphysematous changes can be seen at the lung apices. Bones: No suspicious bony lesions. Visualized cervical spine appears normally aligned. Relatively prominent cervical spine degenerative change can be seen. IMPRESSION: There is 80-90% stenosis seen involving the left proximal internal carotid artery, which appears prog ressed compared to 2017. There is approximately 50% narrowing seen involving the right carotid bifurcation, with 40-50% narrow ing involving the right proximal internal carotid artery. Incidental note is made of: Relatively prominent cervical spine degenerative change Pulmonary emphysema Direct origin of the left vertebral artery from the aortic arch The estimate of stenosis included in the report of the imaging study was calculated using the NASCET method Reviewed by: Rui Jose MD on 12/10/2020 9:02 AM [facility] Approved by: Rui Jose MD on 12/10/2020 9:02 AM [facility] Station ID: [id number]
--- NOTE | 2020-12-10 10:07 | CT Report ---
PROCEDURE: ANGIO HEAD W/WO INDICATIONS: R sided weakness x 15 mins CONTRAST: 80 cc Optiray 320 TECHNIQUE: Precontrast 4.5 mm thick angled axial sections acquired from the foramen magnum to the vertex. Afte r the administration of intravenous contrast, 1 mm thick sections acquired through the [place] of Will is. Postcontrast 4.5 mm thick sections then re-acquired from the foramen magnum to the vertex. 3-di mensional [id number]-[id number] (MIP) and/or volume rendering reformats were acquired of the c entral intracranial vasculature. For radiation dose reduction, the following was used: automated ex posure control, adjustment of mA and/or kV according to patient size. COMPARISON: 09/03/2017. Correlation is also made with the accompanying neck CT angiogram, 12/10/2020. FINDINGS: Image quality: Excellent. Anterior circulation: Intracranial internal carotid arteries are normal in size and flow. The flow within the paired anterior cerebral arteries is normal and symmetric. The flow within the middle cer ebral arteries is normal and symmetric. The anterior communicating artery is seen. No aneurysms are seen. Posterior circulation: The right V4 segment demonstrates areas of atherosclerotic calcification, with 30-40% luminal narrowing. The right vertebral artery is dominant to the left. The left vertebral art nevaeh largely terminates in the left posterior inferior cerebellar artery. There is a normal appearing basilar artery. Flow within the posterior cerebral arteries is normal and symmetric. No aneurysms a re seen. CSF spaces: Ventricles are normal in size and shape. Basal cisterns are patent. No extra-axial flu id collections. Brain: No midline shift. No intracranial bleeds or masses. Dawson-white matter interface appears int act. Brain parenchymal volume loss is seen. Chronic small vessel ischemic changes are seen. Skull and face: Calvarium and facial bones appear intact, without suspicious lesions. Sinuses: Visualized sinuses and mastoids are clear. Bilateral ephraim bullosa are incidentally noted . IMPRESSION: No significant intracranial abnormality is seen. No intracranial hemorrhage is seen. No significant intracranial arterial abnormalities are seen. Age-appropriate brain parenchymal volume loss and chronic small vessel ischemic change can be seen. Reviewed by: Rui Jose MD on 12/10/2020 9:06 AM [facility] Approved by: Rui Jose MD on 12/10/2020 9:06 AM [facility] Station ID: [id number]
[2020-12-10 10:24] LABS: BILIRUBIN,URINE NEGATIVE (NEGATIVE); GLUCOSE, URINE (UA) NEGATIVE (NEGATIVE); KETONES,URINE (UA) NEGATIVE (NEGATIVE); LEUKOCYTE ESTERASE, URINE SMALL (NEGATIVE); NITRITE,URINE NEGATIVE (NEGATIVE); OCCULT BLOOD,URINE TRACE-INTA (NEGATIVE); PH,URINE 7.5 PH (5.0-7.5); PROTEIN,URINE NEGATIVE (NEGATIVE); UROBILINOGEN,URINE 0.2 (NORMAL) E.U./dL (NORMAL)
[2020-12-10 10:26] LABS: CLARITY,URINE HAZY (CLEAR)
[2020-12-10 10:38] LABS: BACTERIA,URINE Few /HPF (None Seen); SQUAMOUS EPITHELIAL CELL,UR FEW Squamous (<= Few)
[2020-12-10] MEDS ORDERED: cefTRIAXone 1 GM VIAL IVP STA (11:24)
[2020-12-10 12:31] LABS: C. PNEUMONIAE- RESP PCR PANEL NOT DETECTED
[2020-12-10] MEDS ORDERED: SODIUM CHLORIDE 0.9% 1,000 ML IV STA (13:46)
[2020-12-10 16:00] VITALS: BP 133/67
== END 2020-12-10 16:00 | disposition short-term general hospital (02) ==
LOC: EDUNIT# → ED 08:54
DX: G45.9 Transient cerebral ischemic attack, unspecified (principal); N30.00 Acute cystitis without hematuria; I48.91 Unspecified atrial fibrillation; I10 Essential (primary) hypertension; Z79.01 Long term (current) use of anticoagulants; Z87.891 Personal history of nicotine dependence; Z20.822 Contact with and (suspected) exposure to COVID-19; Z66 Do not resuscitate
CPT/HCPCS: 36415; 70496; 70498; 80053; 81001; 85025; 85610; 87086; 87631; 93005; 96374; 99283; 99285; Q9967; 0202U; 81003

== ENCOUNTER 2020-12-10 16:02 | Outpatient (CLI) | payer MEDICARE, BC | END 2020-12-10 16:03 | disposition short-term general hospital (02) | LOC: EMS 16:02 | PROVIDERS: ATTEND Emergency Medicine | DX: I65.22 Occlusion and stenosis of left carotid artery (principal) | CPT/HCPCS: A0425; A0426 ==